=== PATIENT | female | born 1945 | race Caucasian/White ===

== ENCOUNTER 2016-06-22 07:01 | Inpatient (IN) | payer MEDICARE ==
[~2016-06-22] VITALS: Ht 154.9 cm; Wt 69.4 kg
[~2016-06-22 07:01] MED LIST: /BISA10SU PR; /GLIP10TAB PO; /GUAIMAX PO; /IPRAINH INH; /MOXI40TA PO; ADV500INH INH; ALBU17IN INH; ASPI1TAB PO; ASPI1TAB5 OR; AUGM875T27 PO; BISAC5TA OR; CAPTO25TA PO; CEFT500T PO; CEFU125S PO; CYCL50TA PO; DARB300VL IV; DIOV320T PO; DIOV40TA PO; DOCU10ELUD OR; DULC100C OR; FLEXERIL PO; GLIP10TA6 PO; GLIP5TAB2 PO; GLUC10TA3 OR; GLUC500T PO; GLYB5TA PO; INSULADS SC; INSULANT SC; LANTUS INSULIN SC; LEVO137T PO; LEVO137T14 PO; LEVO500T PO; LIPI20TA OR; LOPR1TAB6 PO; METF1000 PO; MOM30SS OR; NEUR250S PO; PHOS667C PO; PRED10TA PO; PRED10TA2 PO; PROAAER INH; SENN8.6T76 PO; SYMB80INH INH; SYNT25TA PO; TUMS500C OR; VANCOMYCIN IV; VENTAER INH; VESI5TAB PO; VIBR100C PO; ZOFR20TA PO
[2016-06-22 07:27] LABS: ABG BASE EXCESS -3.2 (-2.0-2.0); ABG DEVICE NASAL CANN; ABG HCO3 22.6 MEQ/L (22.0-26.0); ABG PARTIAL PRESSURE CO2 43.5 mmHg (35.0-45.0); ABG PARTIAL PRESSURE O2 81.5 mmHg (75.0-100.0); ABG STANDARD HCO3 21.7 MEQ/L (22.0-26.0); ABG TOTAL CO2 23.9 MEQ/L (23.0-31.0); ABG pH (ARTERIAL) 7.333 UNITS (7.350-7.450)
[2016-06-22 07:41] LABS: BASO % 0.5 % (0.0-1.0); EOS % 0.3 % (0.0-3.0); LARGE UNSTAINED CELL # 0.1 K/mm3 (0.0-0.4); LYMPH # 0.3 K/mm3 (1.5-4.5); MEAN CORPUSCULAR HEMOGLOBIN 30.8 pg (27.0-33.0); MEAN CORPUSCULAR HGB CONC 31.6 g/dl (32.0-36.5); MEAN CORPUSCULAR VOLUME 97.4 fl (80.0-96.0); MONO # 0.3 K/mm3 (0.0-0.8); MONO % 3.1 % (0.0-5.0); NEUTROPHILS # 9.9 K/mm3 (1.8-7.7); PLATELET COUNT, AUTOMATED 293 k/mm3 (150-450); RED CELL DISTRIBUTION WIDTH 18.4 % (11.5-14.5); WHITE BLOOD COUNT 10.8 K/mm3 (4.0-10.0)
--- NOTE | 2016-06-22 07:49 | REP ---
Clinical: Shortness of breath. Comparison: 06/06/2015. Findings: [place]-A-[place]w with tip in the SVC. Mild cardiomegaly cannot be excluded. Bilateral infiltrates/opacities are suspected (right greater than left). Effusion cannot be excluded. No pneumothorax. Skeletal structures intact. Impression: Bilateral infiltrates (right greater than left). Signed by Anurag Zhang MD 06/22/2016 07:39 A
[2016-06-22 08:00] LABS: ANION GAP 12 MEQ/L (8-16); BLOOD UREA NITROGEN 61 MG/DL (7-18); CALCIUM LEVEL 6.1 MG/DL (8.8-10.2); CARBON DIOXIDE LEVEL 27 MEQ/L (21-32); CHLORIDE LEVEL 97 MEQ/L (98-107); CREATININE FOR GFR 9.66 MG/DL (0.55-1.02); GLOMERULAR FILTRATION RATE 4.2 (>39); GLUCOSE, FASTING 397 MG/DL (83-110); SODIUM LEVEL 136 MEQ/L (136-145)
[2016-06-22 08:15] LABS: POTASSIUM SERUM 7.7 MEQ/L (3.5-5.1)
[2016-06-22] MEDS ORDERED: SOD POLYSTYRENE SULFONATE SUSP 15 GM/60 ML UD As Ordered ONE (08:31)
[2016-06-22] MEDS ORDERED: DEXTROSE 50% 50 ML SYRINGE As Ordered ONE (08:31)
[2016-06-22] MEDS ORDERED: HumuLIN R (REGULAR) INSULIN (NovoLIN R) **100U/ML** PER UNIT As Ordered ONE (08:34)
[2016-06-22] MEDS ORDERED: CALCIUM GLUCONATE 1,000MG/10ML VIAL (100MG/ML) (J0610) As Ordered ONE (08:37)
[2016-06-22] MEDS ORDERED: ALBUTEROL SULFATE 2.5 MG/0.5 ML INH NEB SOLN As Ordered ONE (08:46)
[2016-06-22] MEDS: LEVEMIR (INSULIN DETEMIR) 1 UNITS/0.01ML SC SCH (09:00)
[2016-06-22] MEDS ORDERED: METO100T PO (09:06)
[2016-06-22] MEDS ORDERED: LOSA100T36 PO (09:06)
[2016-06-22] MEDS ORDERED: AZAT5TAB PO (09:06)
[2016-06-22] MEDS ORDERED: DRIS50002 PO (09:06)
[2016-06-22] MEDS ORDERED: SODI15SS PO (09:06)
[2016-06-22] MEDS ORDERED: RENV2TAB PO (09:08)
[2016-06-22] MEDS ORDERED: NORC5TAB PO (09:08)
[2016-06-22] MEDS ORDERED: ONDANSETRON 4MG/2ML VIAL (J2405) IV PRN (10:00)
[2016-06-22] MEDS ORDERED: ACETAMINOPHEN TAB 650MG DOSE (2X325MG) PO PRN (10:00)
[2016-06-22] MEDS ORDERED: VANCOMYCIN HCL 1,000 MG, VIAL MATE ADAPTER 1 EACH in D5W 250 ML IV SCH (10:00)
[2016-06-22] MEDS ORDERED: LIDOCAINE 1% SDV 5 ML VIAL SQ ONE (10:45)
[2016-06-22] MEDS ORDERED: HEPARIN 1,000 UNITS/ML 10ML VIAL (FOR RADIOLOGY& DIALYSIS ONLY) IV ONE (10:45)
--- NOTE | 2016-06-22 13:02 | ECGEPIP ---
Stationary ECG Study [facility] - ED Test Date: 2016-06-22 Pat Name: JEAN MARIE BUSTAMANTE Department: Room: - Gender: F Counselor Aid: ct : 1945 Requested By: ROSALIO Muniz Order Number: [id number] Reading MD: Yvrose Ferro Measurements Intervals [place] Rate: 116 P: 11 MA: 165 QRS: 33 QRSD: 101 T: 40 QT: 260 QTc: 361 Interpretive Statements SINUS TACHYCARDIA WITH FREQUENT VENTRICULAR PREMATURE COMPLEXES NONSPECIFIC ST & T-WAVE ABNORMALITY ABNORMAL RHYTHM ECG PROMINENT T WAVES REQUIRE CLINICAL CORRELATION Electronically Signed On 06-22-2016 13:01:47 EST by Yvrose Ferro
--- NOTE | 2016-06-22 14:40 | EDDOCDS ---
Physician Documentation [facility] Name: Yara Chowdary Age: 70 yrs Sex: Female : 1945 Arrival Date: 06/22/2016 Time: 07:01 Bed 3 Private MD: Disposition: 06/22/16 09:03 Hospitalization ordered by Chris Esposito for Inpatient Admission. Preliminary diagnosis are Shortness of breath, Hyperkalemia, Chronic kidney disease (CKD). - Bed requested for PCU. - Status is Inpatient Admission. hs1 - Condition is Stable. - Problem is chronic. - Symptoms have worsened. Historical: - Allergies: no known allergies; - Home Meds: 1. Kionex 15 gram/60 mL oral susp once daily 2. famciclovir 250 mg Oral tab three times a week 3. Vitamin D2 50,000 unit oral cap once wkly 4. cyclobenzaprine 5 mg Oral tab 3 times per day 5. benzonatate 100 mg oral cap every 12 hours as need for cough 6. azathioprine 50 mg Oral tab once daily 7. metformin 1,000 mg Oral tab 2 times per day 8. metoprolol tartrate 100 mg Oral tab 2 times per day 9. Compazine 10 mg Oral cpER four times a day 10. losartan-potassium 100 mg daily 11. hydrocodone-acetaminophen 5-325 mg Oral tab every 12 hours as needed 12. levothyroxine 137 mcg Oral tab once daily 13. prednisone 20 mg Oral tab 3 tabs once daily 14. Renvela 800 mg oral tab 4 tabs 3 times per day - PMHx: Hypertension; Diabetes - NIDDM: controlled; Hypothyroidism; Renal Failure with Dialysis; CVA; - PSHx: Hysterectomy; D & C; - Social history: Smoking status: Patient states was never smoker of tobacco. No barriers to communication noted, The patient speaks fluent Greenlandic, Speaks appropriately for age. - Family history: Not pertinent. - : The pt / caregiver states he / she is not on anticoagulants. Home medication list is obtained from pill bottles. - Exposure Risk Screening:: None identified. Vital Signs: 06/22 07:04 BP 190 / 84 (auto/); ead 07:08 BP 194 / 84; Pulse 140; Resp 24; Temp 97.5(TE); Pulse Ox 97% ; Weight 69.85 kg / 153.99 ct3 lbs (M); 07:08 Pulse 139 MON; Pulse Ox 98% ; ead 07:15 BP 180 / 70 (auto/); ead 07:15 Pulse 136 MON; Pulse Ox 95% ; ead 07:38 BP 192 / 79 (auto/); ead 07:38 Pulse 117 MON; Pulse Ox 97% ; ead 07:42 Temp 97.0(R); ead 08:00 BP 180 / 84 (auto/); ead 08:00 Pulse 116 MON; Pulse Ox 97% ; ead 08:15 BP 185 / 77 (auto/); ead 08:15 Pulse 110 MON; Pulse Ox 99% on CPAP; ead 08:30 Pulse 104 MON; Pulse Ox 99% ; srm 08:30 BP 177 / 77 (auto/); srm 08:45 Pulse 105 MON; Pulse Ox 84% ; srm 08:45 BP 185 / 79 (auto/); srm 09:00 BP 192 / 80 (auto/); srm 09:00 Pulse 110 MON; Resp 24 S; Pulse Ox 89% ; srm 09:15 Pulse 122 MON; Pulse Ox 100% ; srm 09:15 BP 235 / 99 (auto/); srm 09:29 Pulse 68 MON; Pulse Ox 97% ; srm 09:30 BP 200 / 84 (auto/); srm 09:35 BP 200 / 84; Pulse 71 MON; Resp 22 S; Pulse Ox 97% on 2 lpm NC; srm 14:11 BP 206 / 91; Pulse 87; Resp 18; Temp 97.7(TE); Pulse Ox 99% on 2 lpm NC; Pain 0/10; srm 14:37 BP 209 / 92; Pulse 87; Resp 18; Pulse Ox 99% ; Pain 0/10; srm MDM: 07:08 Call Respiratory ordered. fg 07:08 Combustion Analyst/Pulse Ox/q 15 min VS ordered. fg 07:08 IV Saline Lock ordered. fg 07:08 Oxygen at 4L/Min NC or Home dosage ordered. fg 07:08 Rhythm Strip to chart ordered. fg 07:09 Chest, 1 View Ordered. EDMS 07:09 -Blood Culture Ordered. EDMS 07:09 B-Type Natiuretic Peptide Ordered. EDMS 07:09 Basic Metabolic Profile Ordered. EDMS 07:09 CBC with Diff Ordered. EDMS 07:09 Troponin Ordered. EDMS 07:09 ECG WITH READING ER PHYS+CARDIAG ordered. EDMS 07:13 Rectal Temp ordered. fg 07:15 -Arterial Blood Gas Ordered. EDMS 07:16 Call Respiratory complete. deg 07:17 BLOOD CULTURES Ordered. EDMS 07:21 Nitrostat 0.4 mg Sublingual once ordered. fg 08:00 BED REQUEST+ADM ordered. EDMS 08:25 Insulin Regular Human 10 units IVP once ordered. fg 08:25 Albuterol 2.5 mg Nebulizer once ordered. fg 08:25 Polystyrene Suspension 15 grams PO once ordered. fg 08:26 D50W 50 ml IVP once; (1 amp) ordered. fg 08:34 Calcium Gluconate 1 grams IVPB once over 1 hrs; add to 100mL of NS ordered. fg 09:02 Financial registration complete. lg 09:09 CT Chest without contrast Ordered. EDMS 09:57 Admission / Observation Status ordered. EDMS 09:58 NPO DIET ordered. EDMS 09:58 CARDIAC INJURY PROFILE Ordered. EDMS 09:58 CARDIAC INJURY PROFILE Ordered. EDMS 09:58 TROPONIN Ordered. EDMS 09:58 TROPONIN Ordered. EDMS 09:58 LEGIONELLA ANTIGEN URINE Ordered. EDMS 09:58 URINE STREP PNEUMONIAE ANTIGEN Ordered. EDMS 09:59 RESPIRATORY PANEL Ordered. EDMS 09:59 SPUTUM CULTURE AND GRAM STAIN Ordered. EDMS 09:59 GASTROINTESTINAL (GI) PANEL Ordered. EDMS 10:05 [facility] Payment Agreement was scanned into [employer] and attached to record. lg 10:51 Chest, 2 view PA, Lat Ordered. EDMS 12:38 BASIC METABOLIC PROFILE Ordered. EDMS 12:38 MAGNESIUM LEVEL Ordered. EDMS Administered Medications: 07:42 Drug: Nitrostat 0.4 mg [Nitrostat 0.4 mg sublingual tablet (1 tabs)] Route: Sublingual; ead 08:47 Drug: Calcium Gluconate 1 grams [calcium gluconate 100 mg/mL (10 %) intravenous ead solution] {Co-Signature: srm (Eli Aguirre RN).} Route: IVPB; Infused Over: 1 hrs; Site: right antecubital; 08:51 Drug: Albuterol 2.5 mg [albuterol sulfate 2.5 mg/0.5 mL solution for nebulization (0.5 cs15 mL)] Route: Nebulizer; 09:00 Drug: Polystyrene 15 grams [sodium polystyrene sulfonate 15 gram/60 mL oral suspension srm (1200 drps)] Route: PO; 09:14 Drug: Insulin Regular Human 10 units [insulin regular human 100 unit/mL injection srm solution (0.1 mL)] {Co-Signature: jonathon (Sharmin Hamilton RN).} Route: IVP; Site: right antecubital; 09:14 Drug: D50W 50 ml [dextrose 50 % in water (D50W) intravenous syringe (50 mL)] Route: srm IVP; Site: right antecubital; Signatures: Dispatcher [employer] EDMS Brissa Elizondo, Product Safety Professional Unit deg Valentin Johnson, Reg Reg lg Ashley De Dios RN RN hs1 Sharmin HamiltonRN Jill Brady MD MD fg Andrews, Steven, RN RN sa Michelson, Staci RN srm David Finley RT [id number] Sharmin dennis The chart was reviewed and I authenticate all verbal orders and agree with the evaluation and treatment provided.Corrections: (The following items were deleted from the chart) 09:59 09:59 GASTROINTESTINAL (GI) PANEL ordered. EDMS EDMS 09:59 09:59 GASTROINTESTINAL (GI) PANEL ordered. EDMS EDMS Attachments: 10:05 [facility] Payment Agreement lg MTDD
--- NOTE | 2016-06-22 14:40 | EDDOCDS ---
Nurse's Notes [facility] Name: Yara Bustamante Age: 70 yrs Sex: Female : 1945 Arrival Date: 06/22/2016 Time: 07:01 Bed 3 Private MD: Diagnosis: Shortness of breath;Hyperkalemia;Chronic kidney disease (CKD) Presentation: 06/22 07:04 Presenting complaint: EMS states: "Sudden onset of severe respiratory distress this ead morning." Pt was supposed to go to dialysis this morning. Report respiratory rate of 46 and 02 sat of 78 on arrival to pt's residence. Pt received BVM then to Cpap, peep at 10, 97% on arrival. 18 to gauge to right AC. Denies hx of COPD. Pt is Diabetic, no blood glucose at this time. Adult Sepsis Screening: The patient does not have new or worsening altered mentation. Patient has a respiratory rate of greater than or equal to 22 (1 point). Systolic blood pressure is greater than 100. Patient has a qSOFA score of 1- Negative Sepsis Screen. Suicide/Homicide risk assessment- Unable to assess, the patient is critically ill. 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 Transition of care: patient was not received from another setting of care. 07:04 Acuity: CLARY Level 2 ead 07:04 Method Of Arrival: Ambulance ead Triage Assessment: 07:18 General: Appears distressed, ill, Behavior is cooperative. Pain: Denies pain. The ead patient is triaged at the bedside. See Assessment in Nurses Notes section of ED record. Neurological: Level of Consciousness is awake, alert. Cardiovascular: Heart tones S1 S2 present Rhythm is regular Chest pain is denied. Respiratory: Onset: The symptoms/episode began/occurred this morning, Airway is patent Respiratory effort is labored, Respiratory pattern is tachypnea Reports shortness of breath. Respiratory: Breath sounds with crackles bilaterally. GI: Denies nausea, vomiting, pain. Derm: Skin is dry, Skin is pale, Skin temperature is warm. Historical: - Allergies: no known allergies; - Home Meds: 1. Kionex 15 gram/60 mL oral susp once daily 2. famciclovir 250 mg Oral tab three times a week 3. Vitamin D2 50,000 unit oral cap once wkly 4. cyclobenzaprine 5 mg Oral tab 3 times per day 5. benzonatate 100 mg oral cap every 12 hours as need for cough 6. azathioprine 50 mg Oral tab once daily 7. metformin 1,000 mg Oral tab 2 times per day 8. metoprolol tartrate 100 mg Oral tab 2 times per day 9. Compazine 10 mg Oral cpER four times a day 10. losartan-potassium 100 mg daily 11. hydrocodone-acetaminophen 5-325 mg Oral tab every 12 hours as needed 12. levothyroxine 137 mcg Oral tab once daily 13. prednisone 20 mg Oral tab 3 tabs once daily 14. Renvela 800 mg oral tab 4 tabs 3 times per day - PMHx: Hypertension; Diabetes - NIDDM: controlled; Hypothyroidism; Renal Failure with Dialysis; CVA; - PSHx: Hysterectomy; D & C; - Social history: Smoking status: Patient states was never smoker of tobacco. No barriers to communication noted, The patient speaks fluent Danish, Speaks appropriately for age. - Family history: Not pertinent. - : The pt / caregiver states he / she is not on anticoagulants. Home medication list is obtained from pill bottles. - Exposure Risk Screening:: None identified. Screenin:35 Screening information is obtained from the patient, prior medical records. Fall risk: ead No risks identified. Advance Directives: There is an active DNR order but there is no copy available at this time. Advance directive information has been placed on a prior [facility] medical record, but the patient/ family does not know when. 14:14 Assistance ADL's: requires no assistance with activities of daily living. Abuse/DV srm Screen: The patient / caregiver reports he/she is: not in a situation that causes fear, pain or injury. Nutritional screening: No deficits noted. home support is adequate. Assessment: 07:35 General: See triage assessment. ead 09:01 General: Appears in no apparent distress, Behavior is appropriate for age, cooperative. srm Neurological: No deficits noted. Level of Consciousness is awake, alert, Oriented to person, place, time. Respiratory: Airway is patent Respiratory effort is even, unlabored, Breath sounds are clear bilaterally. bipap in place. GI: Abdomen is non- distended Bowel sounds present X 4 quads. Abd is soft and non tender X 4 quads. Derm: Skin is intact, Skin is dry, Skin is pale, pink. 09:27 General: per dr feldman- pt to dialysis now. . srm 09:39 General: pt transported top dialysis on 2LNC- POX 96% on arrival to dept. report given srm to joselito langley. . 13:55 General: pt returned from dialysis. pt appears and states she feels better than going srm to dialysis. per Lita langley in dialysis- they removed 2.5 kilo. resp easy at this time./pox 98% on 2 LNC. pt sent to CT /rad. 14:11 General: increased staining to left dialysis graft to arm. called and spoke with joselito langley- pressure dressing applied. . Cardiovascular: Rhythm is sinus rhythm. Respiratory: Airway is patent Respiratory effort is even, unlabored, Breath sounds are clear bilaterally. Respiratory: Airway. Derm: Skin is intact, Skin is dry, Skin is pink. 14:23 General: no further bleeding noted from dialysis graft when pressure dressing released. srm reapplied stacy looser than with the pressure dressing. will reeval. 14:37 General: Appears in no apparent distress, Behavior is appropriate for age, cooperative. srm Pain: Denies pain. EENT: No deficits noted. Cardiovascular: Rhythm is sinus rhythm. Respiratory: No deficits noted. Vital Signs: 07:04 BP 190 / 84 (auto/); ead 07:08 BP 194 / 84; Pulse 140; Resp 24; Temp 97.5(TE); Pulse Ox 97% ; Weight 69.85 kg (M); ct3 07:08 Pulse 139 MON; Pulse Ox 98% ; ead 07:15 BP 180 / 70 (auto/); ead 07:15 Pulse 136 MON; Pulse Ox 95% ; ead 07:38 BP 192 / 79 (auto/); ead 07:38 Pulse 117 MON; Pulse Ox 97% ; ead 07:42 Temp 97.0(R); ead 08:00 BP 180 / 84 (auto/); ead 08:00 Pulse 116 MON; Pulse Ox 97% ; ead 08:15 BP 185 / 77 (auto/); ead 08:15 Pulse 110 MON; Pulse Ox 99% on CPAP; ead 08:30 Pulse 104 MON; Pulse Ox 99% ; srm 08:30 BP 177 / 77 (auto/); srm 08:45 Pulse 105 MON; Pulse Ox 84% ; srm 08:45 BP 185 / 79 (auto/); srm 09:00 BP 192 / 80 (auto/); srm 09:00 Pulse 110 MON; Resp 24 S; Pulse Ox 89% ; srm 09:15 Pulse 122 MON; Pulse Ox 100% ; srm 09:15 BP 235 / 99 (auto/); srm 09:29 Pulse 68 MON; Pulse Ox 97% ; srm 09:30 BP 200 / 84 (auto/); srm 09:35 BP 200 / 84; Pulse 71 MON; Resp 22 S; Pulse Ox 97% on 2 lpm NC; srm 14:11 BP 206 / 91; Pulse 87; Resp 18; Temp 97.7(TE); Pulse Ox 99% on 2 lpm NC; Pain 0/10; srm 14:37 BP 209 / 92; Pulse 87; Resp 18; Pulse Ox 99% ; Pain 0/10; srm Vitals: 07:08 Log In Time N/A - ambulance arrival. ct3 ED Course: 07:03 Patient visited by Brissa Elizondo, Asbestos Pipe Supervisor. deg 07:03 Sharmin Hamilton,RN is Primary Nurse. deg 07:03 Patient moved to Waiting deg 07:03 Patient moved to 3 deg 07:07 Jill Dunn MD is Attending Physician. fg 07:07 Patient visited by Jill Dunn MD. fg 07:07 Triage Initiated ead 07:08 Patient has correct armband on for positive identification. Bed in low position. Call ct3 light in reach. Side rails up X2. drafting teacher on. Pulse ox on. NIBP on. 07:09 Patient visited by Selene Richardson PCA. ct3 07:17 EKG done. (by ED staff). Reviewed by Jill Dunn MD. ct3 07:18 Patient visited by Selene Richardson PCA. ct3 07:24 -Arterial Blood Gas Sent. cs15 07:34 -Blood Culture Sent. ead 07:34 B-Type Natiuretic Peptide Sent. ead 07:34 Basic Metabolic Profile Sent. ead 07:34 Troponin Sent. ead 07:34 CBC with Diff Sent. ead 07:35 The patient / caregiver is instructed regarding the plan of care and ED course. ead 07:35 Maintain field IV. Dressing intact. Good blood return noted. Site clean & dry. Gauge & ead site: 18 gauge to right AC. . 07:37 Patient visited by Sharmin Hamilton RN. ead 07:51 BLOOD CULTURES Sent. ct3 07:58 Chest, 1 View Returned. EDMS 08:30 Patient visited by Sharmin Hamilton RN. ead 08:50 Report given to Eli Aguirre RN. ead 09:02 Chris Esposito is Hospitalizing Provider. fg 09:03 Patient visited by Eli Aguirre RN. srm 09:40 Patient visited by Eli Aguirre RN. srm 10:05 [facility] Payment Agreement was scanned into [email or web address] and attached to record. lg 13:09 EKG-ADULT Returned. EDMS 13:58 Patient visited by Eli Aguirre RN. srm 14:14 No procedures done that require assistance. srm 14:16 Patient visited by Eli Aguirre RN. srm 14:25 Patient visited by Eli Aguirre RN. srm Administered Medications: 07:42 Drug: Nitrostat 0.4 mg [Nitrostat 0.4 mg sublingual tablet (1 tabs)] Route: Sublingual; ead 08:47 Drug: Calcium Gluconate 1 grams [calcium gluconate 100 mg/mL (10 %) intravenous ead solution] {Co-Signature: srm (Eli Aguirre RN).} Route: IVPB; Infused Over: 1 hrs; Site: right antecubital; 08:51 Drug: Albuterol 2.5 mg [albuterol sulfate 2.5 mg/0.5 mL solution for nebulization (0.5 cs15 mL)] Route: Nebulizer; 09:00 Drug: Polystyrene 15 grams [sodium polystyrene sulfonate 15 gram/60 mL oral suspension srm (1200 drps)] Route: PO; 09:14 Drug: Insulin Regular Human 10 units [insulin regular human 100 unit/mL injection srm solution (0.1 mL)] {Co-Signature: ead (Sharmin Hamilton RN).} Route: IVP; Site: right antecubital; 09:14 Drug: D50W 50 ml [dextrose 50 % in water (D50W) intravenous syringe (50 mL)] Route: srm IVP; Site: right antecubital; RT: 07:24 ABG's drawn from right radial artery allens test done and positive pressure held for 5 cs15 minutes no bleeding noted pressure bandage applied specimen sent pt. tolerated well. C-PAP of 10 on 60% Fio2. 07:28 Respiratory: Breath sounds are coarse bilaterally. Breath sounds with crackles in right cs15 posterior middle lobe and right posterior lower lobe. 08:52 Initial Med Neb Given as ordered. Respiratory: Respiratory effort is Respiratory cs15 pattern is regular tachypnea Breath sounds with crackles bilaterally. Order Results: Lab Order: B-Type Natiuretic Peptide; SPEC'M 06/22/16 07:32 Test: BRAIN NATRIURETIC PEPTIDE; Value: 1670; Range: <100; Abnormal: Above high normal; Units: PG/ML; Status: F Lab Order: Basic Metabolic Profile; SPEC'M 06/22/16 07:32 Test: GLUCOSE, FASTING; Value: 397; Range: 83-110; Abnormal: Above high normal; Units: MG/DL; Status: F Test: BLOOD UREA NITROGEN; Value: 61; Range: 7-18; Abnormal: Above high normal; Units: MG/DL; Status: F Test: CREATININE FOR GFR; Value: 9.66; Range: 0.55-1.02; Abnormal: Above high normal; Units: MG/DL; Status: F Test: GLOMERULAR FILTRATION RATE; Value: 4.2; Range: >39; Abnormal: Below low normal; Status: F Test: SODIUM LEVEL; Value: 136; Range: 136-145; Units: MEQ/L; Status: F Test: POTASSIUM SERUM; Value: 7.7; Range: 3.5-5.1; Abnormal: Above upper panic limits; Units: MEQ/L; Status: F Test: CHLORIDE LEVEL; Value: 97; Range: 98-107; Abnormal: Below low normal; Units: MEQ/L; Status: F Test: CARBON DIOXIDE LEVEL; Value: 27; Range: 21-32; Units: MEQ/L; Status: F Test: ANION GAP; Value: 12; Range: 8-16; Units: MEQ/L; Status: F Test: CALCIUM LEVEL; Value: 6.1; Range: 8.8-10.2; Abnormal: Below low normal; Units: MG/DL; Status: F Test Note: ; Units are mL/min/1.73 m2 Chronic Kidney Disease Staging per NKF: Stage I & II GFR >=60 Normal to Mildly Decreased Stage III GFR 30-59 Moderately Decreased Stage IV GFR 15-29 Severely Decreased Stage V GFR <15 Very Little GFR Left ESRD GFR <15 on CREDIT RELATIONSHIP MANAGER Lab Order: CBC with Diff; SPEC'M 06/22/16 07:32 Test: WHITE BLOOD COUNT; Value: 10.8; Range: 4.0-10.0; Abnormal: Above high normal; Units: K/mm3; Status: F Test: RED BLOOD COUNT; Value: 3.81; Range: 4.00-5.40; Abnormal: Below low normal; Units: M/mm3; Status: F Test: HEMOGLOBIN; Value: 11.7; Range: 12.0-16.0; Abnormal: Below low normal; Units: g/dl; Status: F Test: HEMATOCRIT; Value: 37.1; Range: 36.0-47.0; Units: %; Status: F Test: MEAN CORPUSCULAR VOLUME; Value: 97.4; Range: 80.0-96.0; Abnormal: Above high normal; Units: fl; Status: F Test: MEAN CORPUSCULAR HEMOGLOBIN; Value: 30.8; Range: 27.0-33.0; Units: pg; Status: F Test: MEAN CORPUSCULAR HGB CONC; Value: 31.6; Range: 32.0-36.5; Abnormal: Below low normal; Units: g/dl; Status: F Test: RED CELL DISTRIBUTION WIDTH; Value: 18.4; Range: 11.5-14.5; Abnormal: Above high normal; Units: %; Status: F Test: PLATELET COUNT, AUTOMATED; Value: 293; Range: 150-450; Units: k/mm3; Status: F Test: NEUTROPHILS %; Value: 92.0; Range: 36.0-66.0; Abnormal: Above high normal; Units: %; Status: F Test: LYMPH %; Value: 3.0; Range: 24.0-44.0; Abnormal: Below low normal; Units: %; Status: F Test: MONO %; Value: 3.1; Range: 0.0-5.0; Units: %; Status: F Test: EOS %; Value: 0.3; Range: 0.0-3.0; Units: %; Status: F Test: BASO %; Value: 0.5; Range: 0.0-1.0; Units: %; Status: F Test: LARGE UNSTAINED CELL %; Value: 1.0; Range: 0.0-4.0; Units: %; Status: F Test: NEUTROPHILS #; Value: 9.9; Range: 1.8-7.7; Abnormal: Above high normal; Units: K/mm3; Status: F Test: LYMPH #; Value: 0.3; Range: 1.5-4.5; Abnormal: Below low normal; Units: K/mm3; Status: F Test: MONO #; Value: 0.3; Range: 0.0-0.8; Units: K/mm3; Status: F Test: EOS #; Value: 0.0; Range: 0.0-0.50; Units: K/mm3; Status: F Test: BASO #; Value: 0.0; Range: 0.0-0.2; Units: K/mm3; Status: F Test: LARGE UNSTAINED CELL #; Value: 0.1; Range: 0.0-0.4; Units: K/mm3; Status: F Lab Order: Troponin; SPEC'M 06/22/16 07:32 Test: TROPONIN I; Value: < 0.02; Range: < 0.10; Units: NG/ML; Status: F Test Note: ; Troponin I Reference Interval for [employer] LOCI: 99th Percentile= 0.00-0.045 ng/ml Risk Stratification: <= 0.10 ng/ml Decreased Risk for Adverse Clinical Events. 0.10-1.50 ng/ml Increased Risk for Adverse Clinical Events. Evaluation of additional criterion and/or repeat testing in 2-6 hours is suggested to rule out myocardial damage. >= 1.50 ng/ml Indicative of Myocardial Injury. Lab Order: -Arterial Blood Gas; SPEC'M 06/22/16 07:22 Test: ABG pH (ARTERIAL); Value: 7.333; Range: 7.350-7.450; Abnormal: Below low normal; Units: UNITS; Status: F Test: ABG PARTIAL PRESSURE CO2; Value: 43.5; Range: 35.0-45.0; Units: mmHg; Status: F Test: ABG PARTIAL PRESSURE O2; Value: 81.5; Range: 75.0-100.0; Units: mmHg; Status: F Test: ABG TOTAL CO2; Value: 23.9; Range: 23.0-31.0; Units: MEQ/L; Status: F Test: ABG HCO3; Value: 22.6; Range: 22.0-26.0; Units: MEQ/L; Status: F Test: ABG BASE EXCESS; Value: -3.2; Range: -2.0-2.0; Abnormal: Below low normal; Status: F Test: ABG STANDARD HCO3; Value: 21.7; Range: 22.0-26.0; Abnormal: Below low normal; Units: MEQ/L; Status: F Test: ABG O2 SATURATION; Value: 92.8; Range: 95.0-99.0; Abnormal: Below low normal; Units: %; Status: F Test: ABG DEVICE; Value: NASAL EMILY; Status: F Lab Order: CARDIAC INJURY PROFILE; SPEC'M 06/22/16 10:10 Test: CPK CREATINE PHOSPHOKINASE; Value: 51; Range: 26-192; Units: U/L; Status: F Test: CK-MB VALUE MASS; Value: 1.0; Range: 0.0-3.6; Units: NG/ML; Status: F Test: MB/CK RELATIVE INDEX; Value: 1.96; Range: < OR =4; Status: F Test Note: ; DIAGNOSIS CRITERIA MMB ng/ml Relative Index (RI) NON-AMI < or = 5 N/A [place] > 5 < or = 4 AMI > 5 > 4 Lab Order: TROPONIN; SPEC'M 06/22/16 10:10 Test: TROPONIN I; Value: < 0.02; Range: < 0.10; Units: NG/ML; Status: F Test Note: ; Troponin I Reference Interval for [employer] LOCI: 99th Percentile= 0.00-0.045 ng/ml Risk Stratification: <= 0.10 ng/ml Decreased Risk for Adverse Clinical Events. 0.10-1.50 ng/ml Increased Risk for Adverse Clinical Events. Evaluation of additional criterion and/or repeat testing in 2-6 hours is suggested to rule out myocardial damage. >= 1.50 ng/ml Indicative of Myocardial Injury. Radiology Order: Chest, 1 View Test: Chest, 1 View REASON FOR EXAMINATION: Shortness of Breath; Clinical: Shortness of breath.; ; Comparison: 06/06/2015.; ; Findings:; Yfbjyo-A-Jgiw with tip in the SVC.; Mild cardiomegaly cannot be excluded.; Bilateral infiltrates/opacities are suspected (right greater than left).; Effusion cannot be excluded. No pneumothorax. 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 fg 14:15 Condition: good Condition: stable Condition: improved. CT Study completed. Property srm :Personal belongings accompany Pt. 14:37 Discharge Assessment: Patient awake, alert and oriented x 3. No cognitive and/or srm functional deficits noted. Patient verbalized understanding of disposition instructions. patient administered narcotics - no. The following High Risk Discharge criteria are identified: None. Admitted to PCU accompanied by nurse, accompanied by tech, via stretcher, with oxygen, on monitor, with chart. 14:39 Patient left the ED. hs1 Signatures: Dispatcher [employer] EDBrissa Nichols, Asbestos Pipe Supervisor Unit deg Eli Aguirre RN RN Valentin Ortiz, Reg Reg lg Ashley De Dios RN RN hs1 Selene Richardson, CHAD CONVENTION SERVICES MANAGER ct3 Sharmin Hamilton RN RN Jill Lea MD MD fg David Finley,RT RT cs15 Sharmin Aguirre RN srm Corrections: (The following items were deleted from the chart) 09:41 09:35 Pulse 71bpm; MonitorResp 22bpm; Spontaneous; Pulse Ox 97%; srm srm MTDD
[2016-06-22 15:00] LABS: CALCIUM LEVEL 8.3 MG/DL (8.8-10.2); CREATININE FOR GFR 4.89 MG/DL (0.55-1.02); GLOMERULAR FILTRATION RATE 9.3 (>39); MAGNESIUM LEVEL 2.3 MG/DL (1.8-2.4)
--- NOTE | 2016-06-22 15:03 | HPEPDOC ---
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 Patient states she's been short of breath and complaining of a nonproductive cough for the past 3 weeks. Denies any fevers or chills. No sick contacts. Patient also states that she's had 12-13 bowel movements that started last night. No nausea/vomiting/abdominal pain. Patient was in severe as per distress was placed on BiPAP with significant relief. In the ED patient was also noted to be hyperkalemic for which she received insulin/glucose/Kayexalate and went for emergent hemodialysis. She did have peak T waves in EKG and received calcium gluconate in the ED. PAST MEDICAL HISTORY: As per HPI PAST SURGICAL HISTORY: Left AV fistula, hysterectomy, dilation curettage SOCIAL HISTORY: Denies tobacco, alcohol, illicit drug use. FAMILY HISTORY: Noncontributory ALLERGIES: Please see below. REVIEW OF SYSTEMS: HEENT: Denies sore throat/headache CARDIOVASCULAR: Denies chest pain/palpitations RESPIRATORY: + shortness of breath/cough GASTROINTESTINAL: denies nausea/vomiting GENITOURINARY: Denies dysuria/urinary urgency. MUSCULOSKELETAL: Denies myalgias/arthralgias NEUROLOGICAL: Denies any focal weakness Rest of ROS negative. HOME MEDICATIONS: Please see below. PHYSICAL EXAMINATION: Vitals: (see below) General: No acute distress, laying comfortably in bed. HEENT: Moist mucous membranes. Neck: No JVD or lymphadenopathy Cardiac: RRR Pulm: Diminished breath sounds are coarse crackles bilateral bases with the right greater than left. No wheezing or rhonchi Abd: NT/ND + BS Ext: No edema or cyanosis. Left AVF with bruit and distal pulses intact. LABORATORY DATA: See below. IMAGING: Chest x-ray on 06/22/16 bilateral infiltrates at the right greater than the left. ASSESSMENT/PLAN: Acute hypoxic respiratory failure- secondary to volume overload as well as underlying pneumonia. The patient did receive her emergent hemodialysis this morning. Did have significant relief with BiPAP. Patient was also placed on vancomycin and cefepime with cultures sent. Respiratory panel sent. We'll trend CRP and WBCs. Looking back at prior notes patient has had right lower lobe scar with dystrophic calcification on her CT chest from her Deepti's granulomatosis. End-stage renal disease on hemodialysis- She will resume her Wednesday/Wednesday/ Wednesday hemodialysis. Prednisone daily. Hyperkalemia- with peak T waves in EKG. Status post calcium gluconate, insulin/ glucose/Kayexalate. Patient also had emergent hemodialysis. Hypertension- continue home meds Hypothyroidism-continue Synthroid Diabetes- hold glipizide and continue Lantus. DVT prophylaxis- heparin subcutaneous Laboratory Data Labs 24H Laboratory Tests 2 06/22/16 07:22: Arterial Blood pH 7.333L, Arterial Blood Partial Pressure CO2 43.5, Arterial Blood Partial Pressure O2 81.5, Arterial Blood Total CO2 23.9, Arterial Blood HCO3 22.6, Arterial Blood Base Excess -3.2L, Arterial Blood Oxygen Saturation 92.8L, Blood Gas Bicarbonate Standard 21.7L, Oxygen Delivery Device NASAL EMILY 06/22/16 07:32: Anion Gap 12, B-Type Natriuretic Peptide 1670H, White Blood Count 10.8H, Red Blood Count 3.81L, Hemoglobin 11.7L, Hematocrit 37.1, Mean Corpuscular Volume 97.4H, Mean Corpuscular Hemoglobin 30.8, Mean Corpuscular Hemoglobin Concent 31.6L, Red Cell Distribution Width 18.4H, Platelet Count 293, Neutrophils (%) ( Auto) 92.0H, Lymphocytes (%) (Auto) 3.0L, Monocytes (%) (Auto) 3.1, Eosinophils (%) (Auto) 0.3, Basophils (%) (Auto) 0.5, Neutrophils # (Auto) 9.9H, Lymphocytes # (Auto) 0.3L, Monocytes # (Auto) 0.3, Eosinophils # (Auto) 0.0, Basophils # (Auto) 0.0, Blood Urea Nitrogen 61H, Creatinine 9.66H, Sodium Level 136, Potassium Level 7.7*H, Chloride Level 97L, Carbon Dioxide Level 27, Calcium Level 6.1L, Glomerular Filtration Rate 4.2L, Large Unclassified Cells # 0.1, Large Unclassified Cells % 1.0, Troponin I < 0.02 06/22/16 10:10: Troponin I < 0.02, Creatine Kinase MB 1.0, Creatine Kinase MB Relative Index 1.96, Total Creatine Kinase 51 06/22/16 14:31: CBC/BMP Laboratory Tests 06/22/16 07:32 Calcium Level 6.1 L, Red Blood Count 3.81 L, Mean Corpuscular Volume 97.4 H, Mean Corpuscular Hemoglobin 30.8, Mean Corpuscular Hemoglobin Concent 31.6 L, Red Cell Distribution Width 18.4 H, Neutrophils (%) (Auto) 92.0 H, Lymphocytes ( %) (Auto) 3.0 L, Monocytes (%) (Auto) 3.1, Eosinophils (%) (Auto) 0.3, Basophils (%) (Auto) 0.5, Neutrophils # (Auto) 9.9 H, Lymphocytes # (Auto) 0.3 L , Monocytes # (Auto) 0.3, Eosinophils # (Auto) 0.0, Basophils # (Auto) 0.0 Microbiology Microbiology 06/22/16 Blood Culture, Received Pending 06/22/16 Blood Culture, Received Pending Home Medications Scheduled Aspirin (Aspirin 81) 81 Mg Tab 81 MG PO DAILY Azathioprine (Azathioprine) 50 Mg Tab 50 MG PO DAILY Calcium Acetate (Phoslo) 667 Mg Cap 3 CAP PO WM Levothyroxine Sodium (Levoxyl) 137 Mcg Tab 137 MCG PO DAILY Losartan Potassium (Losartan Potassium) 100 Mg Tab 100 MG PO DAILY Metoprolol Tartrate (Metoprolol Tartrate) 100 Mg Tab 100 MG PO BID Sevelamer Carbonate (Renvela) 800 Mg Tab 3,200 MG PO WM Sodium Polystyrene Sulfonate (Sps) 15 Gm/60 Ml Susp 15 GM PO ASDIRECTED Vitamin D (Drisdol) 50,000 Unit Cap 50,000 UNIT PO QWEEK MONDAYS Scheduled PRN Acetaminophen/Hydrocodone ([place] 5-325 mg) 1 Tab Tab 1 TAB PO Q12H PRN PRN PAIN Allergies Coded Allergies: No Known Allergies (Unverified , 01/02/13) RONAL MOTTA MD Jun 22, 2016 15:03
[2016-06-22 15:11] LABS: POTASSIUM SERUM 4.1 MEQ/L (3.5-5.1)
[2016-06-22] MEDS ORDERED: SOD POLYSTYRENE SULFONATE SUSP 15 GM/60 ML UD PO SCH (15:15)
[2016-06-22] MEDS ORDERED: NORCO, ANEXSIA 5/325MG TABLET (HYDROcodone/ACETAMINOPHEN) PO PRN (15:15)
[2016-06-22 15:19] VITALS: BP 170/78
--- NOTE | 2016-06-22 15:30 | REP ---
CT study of the chest without IV contrast: History: Question bilateral infiltrates. Comparison chest x-ray is from this date. Comparison chest CT study February 13, 2016. CT findings: There is an Hltqef-F-Ldli catheter via the left internal jugular vein. Bilateral thyroid enlargement is seen, unchanged. Vascular calcification is noted in the aorta, great vessels, and coronary arteries. There are small bilateral pleural effusions, right a little more so than left. No pericardial effusion is seen. There are linear suture lines in the right lower lobe as before post thoracotomy. Discoid atelectasis is seen in the lower lobes bilaterally. There is some patchy parenchymal consolidation in the posterior segment of the right upper lobe. No other infiltrate is appreciated. Stable scattered normal sized mediastinal lymph nodes are seen. No adrenal lesion is observed. Atrophic kidneys are seen in the upper abdomen at the bottom of the imaging field of view. Stable low density areas are seen in the superior aspect of the liver, unchanged. No bony destructive lesion is appreciated. Impression: Small bilateral effusions, right greater than left. Bilateral lower lobe discoid atelectasis. Patchy area of infiltrate in the posterior segment of the right upper lobe may be early pneumonia. Signed by Everett Madsen MD 06/22/2016 03:35 P
--- NOTE | 2016-06-22 15:34 | REP ---
Chest x-ray: Two views. History: Shortness of breath and cough. Findings: The lungs are symmetrically aerated. A left internal jugular vein [id number] is seen with its tip in the expected location of the superior vena cava. There is blunting of the lateral pleural angles on both sides. No free pleural effusion is seen. Pulmonary parenchymal opacity on the right is improved from the film done at 07:31 a.m. on this date. There is some increased pleuroparenchymal density at the right base. There is a hazy opacity in the right upper lobe region above the minor fissure. Impression: Hazy opacity right upper lobe above the minor fissure. Right basilar plate-like atelectasis. Blunting of the lateral pleural angles. Signed by Everett Madsen MD 06/22/2016 03:35 P
[2016-06-22] MEDS ORDERED: CHECK TO SEE IF PATIENT IS RECEIVING DIALYSIS TODAY AND REFER TO THE VANCOMYCIN ORDER XX SCH (16:00)
[2016-06-22] MEDS ORDERED: GLUCOSE 4 GM CHEW TABLET PO PRN (17:15)
[2016-06-22] MEDS ORDERED: DEXTROSE 50% 50 ML SYRINGE IV PRN (17:15)
[2016-06-22] MEDS: ASPIRIN 81 MG ENTERIC TAB PO SCH (17:50)
[2016-06-22] MEDS: (RENVELA) SEVELAMER **CARBONate** 800 MG TAB PO SCH (17:51)
[2016-06-22] MEDS: amLODIPine 5 MG TAB PO SCH (17:51)
[2016-06-22] MEDS: PANTOPRAZOLE 40MG INJ (PROTONIX) (C9113) IV SCH (17:51)
[2016-06-22] MEDS ORDERED: CEFEPIME HCL 1 GM in D5W MINI-BAG PLUS 50 ML IV SCH (18:00)
[2016-06-22] MEDS: azaTHIOprine 50 MG TAB (J7500) PO SCH (18:13)
[2016-06-22] MEDS: LEVOTHYROXINE 0.137 MG TAB (137MCG) PO SCH (18:13)
[2016-06-22] MEDS: HumaLOG INSULIN (NovoLOG) PER UNIT SC SCH (18:55)
[2016-06-22 20:00] VITALS: BP 150/58
--- NOTE | 2016-06-22 20:02 | ECGEPIP ---
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
[2016-06-22] MEDS ORDERED: HumaLOG INSULIN (NovoLOG) PER UNIT SC SCH (21:00)
[2016-06-22] MEDS: METOPROLOL TARTRATE 100 MG TAB PO SCH (21:57)
[2016-06-22 22:06] VITALS: BP 162/72
--- NOTE | 2016-06-22 23:21 | CR ---
DATE OF CONSULTATION: 06/22/2016 REQUESTING PHYSICIAN: William Motta MD CONSULTING PHYSICIAN: Gregg Pineda MD REASON FOR CONSULTATION: Management of end-stage renal disease, fluid overload and hyperkalemia. HISTORY OF PRESENT ILLNESS: Yara Chowdary is a 70-year-old female with past medical history of end-stage renal disease on hemodialysis every Wednesday, Wednesday, Wednesday. Last hemodialysis was done according to schedule on Wednesday. 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 She is currently maintained on Azathioprine, multiple other comorbidities as mentioned below. The patient presented to the emergency room over night with progressive shortness of breath for the last three days with cough and some whitish phlegm. She denied any fever, chills or rigors. She does report that she drank a little bit of extra fluid over the weekend. The patient was found to have blood pressures in 200s in the emergency room and labs done during triage also showed that she had a potassium of 7.7, so nephrology service consult was requested for emergent hemodialysis of the patient. Today is her regular day of dialysis. The patient was admitted to the PCU. Emergency hemodialysis session was arranged for the patient and patient was dialyzed first shift in the morning today. PAST MEDICAL HISTORY: She has past medical history of end-stage renal disease on hemodialysis Wednesday, Wednesday, Wednesday. History of Garrison's granulomatosis with lung involvement as well, hypertension, diabetes mellitus type 2, hyperthyroidism, history of cerebrovascular accident (CVA) with no residual weakness in the past. PAST SURGICAL HISTORY: Left arm arteriovenous (AV) fistula. Status post hysterectomy. Status post dilation and curettage (D and C). ALLERGIES: The patient has no known medical allergies. HOME MEDICATIONS: The patient takes: - [place] as needed for pain - aspirin 81 mg daily - azathioprine 50 mg by mouth daily - PhosLo 3 capsules by mouth with meal - levothyroxine 137 mcg by mouth daily - Losartan 100 mg by mouth daily - metoprolol 100 mg by mouth twice a day - Renvela 3.2 grams by mouth with meals - vitamin D 50,000 units by mouth weekly CURRENT INPATIENT MEDICATIONS: The patient's inpatient medications were all reviewed by me. She is on: - Cefepime 1 gram IV every 24 hourly - vancomycin 1 gram IV every hemodialysis - amlodipine 5 mg by mouth daily - insulin, Levemir 10 units subcutaneous every morning - Lopressor 100 mg by mouth twice a day The rest of the medications are the same as home medications. FAMILY HISTORY: There is no significant family history of end-stage renal disease requiring hemodialysis. SOCIAL HISTORY: The patient denies any smoking, drug abuse or alcohol abuse. REVIEW OF SYSTEMS: CONSTITUTIONAL: The patient reports shortness of breath and cough. EYES: The patient denies any recent blurry vision or double vision. HEENT: She denies any ear discharge, dysphagia or dynophagia. CARDIOVASCULAR: She denies any chest pain or palpitations and she denies any lower extremity edema. RESPIRATORY: The patient reports progressive shortness of breath and cough with some phlegm. GASTROINTESTINAL (GI): The patient denies any nausea or vomiting, pain in abdomen, constipation. GENITOURINARY (): She has a history of end-stage renal disease requiring hemodialysis and she makes very little urine. MUSCULOSKELETAL: She denies any myalgias or arthralgias. CENTRAL NERVOUS SYSTEM: The patient reports history of CVA, but there is no focal deficit. PSYCHIATRIC: She denies any history of depression or anxiety. SKIN: She denies any rashes or ulcers. ENDOCRINE: She reports history of diabetes. HEMATOLOGICAL/ONCOLOGICAL: She reports history of anemia secondary to end-stage renal disease. All other review of system was found to be negative. PHYSICAL EXAMINATION: GENERAL: The patient is awake, alert and oriented times three. Laying in bed. Getting hemodialysis done at this time. VITAL SIGNS: Blood pressure was 191/86, pulse is 82, respiratory rate of 16, saturating 98% on nasal cannula. HEAD/NECK: Extraocular muscles intact. Pupils equally round and reactive to light. Neck is supple. Mucous membranes are moist. There is slightly elevated jugular venous distention (JVD). CARDIOVASCULAR: S1, S2, regular rate. No murmur, rub or gallop. RESPIRATORY: Decreased breath sounds at bases and there are coarse crackles bilaterally at the bases. ABDOMEN: Soft. Positive bowel sounds. Nontender. No ascites. No organomegaly. EXTREMITIES: No clubbing or cyanosis. No edema of the bilateral lower extremities. AV ACCESS: The patient has a left forearm arteriovenous fistula which is being used for dialysis at this time. CENTRAL NERVOUS SYSTEM: No focal neurological deficit. Power is 5/5 in all extremities. PSYCHIATRIC: Normal mood and affect. SKIN: No rashes or ulcers. LABORATORY REVIEW: CBC showed a WBC of 10.8, hemoglobin 11.7, platelets are 293. BMP showed sodium 136, potassium 7.7, chloride 97, bicarbonate 27, BUN 61, creatinine 9.6, calcium 6.1, BMP was 1670. Troponin was less than 0.02. Microbiology: Respiratory panel is negative by PCR. Blood cultures are pending. IMAGING: CT scan of the chest was done today morning which showed small bilateral effusions, right greater than left, bilateral lower lobe discoid atelectasis, patchy area of infiltrate in the posterior segment of the right upper lobe that may be early pneumonia. ASSESSMENT: 70-year-old female with past medical history of end-stage renal disease, on hemodialysis every Wednesday, Wednesday, Wednesday, history of Garrison's granulomatosis admitted this time with progressive shortness of breath, fluid overload and hyperkalemia. PLAN: 1. Acute hypoxemic respiratory failure secondary to fluid overload. The patient is being emergently dialyzed. We shall try to do an ultrafiltration of around 3 to 4 kg as tolerated by her blood pressure. The patient will also get a repeat chest x-ray done after the hemodialysis to rule out any pneumonia. The patient has already been empirically started on antibiotics by the primary team. Continue the antibiotics until we rule out pneumonia at this time. 2. History of Garrison's granulomatosis. Continue current dose of azathioprine 50 mg by mouth daily. No need of steroids at this time. 3. Accelerated hypertension. The patient's hypertension is most likely secondary to fluid overload. Blood pressure is expected to improve after hemodialysis and ultrafiltration. The patient is currently on amlodipine 5 mg by mouth daily and metoprolol 100 mg by mouth twice a day. Continue the current dose. The rest of the recommendations are per hemodialysis tomorrow. 4. 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 Continue current dose of PhosLo and Renvela with meals. 5. Hyperkalemia. Hyperkalemia is secondary to nonadherence with low potassium diet. The patient is being dialyzed against a 1K bath and potassium is expected to improve after hemodialysis. 6. Diabetes mellitus type 2. Continue current dose of Lantus and insulin sliding scale. The rest of the management is as per primary team. Thank you for involving us in the care of this patient. We shall be happy to follow the patient along with you tomorrow morning. NARGIS
[2016-06-22 23:59] VITALS: BP 156/71
[2016-06-23 04:33] VITALS: BP 158/72
[2016-06-23] MEDS: LEVOTHYROXINE 0.137 MG TAB (137MCG) PO SCH (06:03)
[2016-06-23 08:00] VITALS: BP 190/84
[2016-06-23 08:24] LABS: BASO # 0.1 K/mm3 (0.0-0.2); BASO % 0.9 % (0.0-1.0); EOS % 0.2 % (0.0-3.0); LARGE UNSTAINED CELL # 0.1 K/mm3 (0.0-0.4); LARGE UNSTAINED CELL % 2.1 % (0.0-4.0); LYMPH # 0.4 K/mm3 (1.5-4.5); MEAN CORPUSCULAR HEMOGLOBIN 29.2 pg (27.0-33.0); MEAN CORPUSCULAR HGB CONC 30.9 g/dl (32.0-36.5); MEAN CORPUSCULAR VOLUME 94.6 fl (80.0-96.0); MONO # 0.4 K/mm3 (0.0-0.8); MONO % 6.1 % (0.0-5.0); NEUTROPHILS # 5.8 K/mm3 (1.8-7.7); NEUTROPHILS % 86.8 % (36.0-66.0); PLATELET COUNT, AUTOMATED 261 k/mm3 (150-450); RED CELL DISTRIBUTION WIDTH 19.4 % (11.5-14.5); WHITE BLOOD COUNT 6.7 K/mm3 (4.0-10.0)
[2016-06-23 08:40] VITALS: BP 172/89
[2016-06-23] MEDS: azaTHIOprine 50 MG TAB (J7500) PO SCH (08:40)
[2016-06-23] MEDS: ASPIRIN 81 MG ENTERIC TAB PO SCH (08:40)
[2016-06-23] MEDS: amLODIPine 5 MG TAB PO SCH (08:40)
[2016-06-23] MEDS: METOPROLOL TARTRATE 100 MG TAB PO SCH (08:40)
[2016-06-23] MEDS: (RENVELA) SEVELAMER **CARBONate** 800 MG TAB PO SCH ×2 (08:40→12:30)
[2016-06-23] MEDS: PANTOPRAZOLE 40MG INJ (PROTONIX) (C9113) IV SCH (08:40)
[2016-06-23] MEDS: HumaLOG INSULIN (NovoLOG) PER UNIT SC SCH ×2 (08:41→12:00)
[2016-06-23] MEDS: LEVEMIR (INSULIN DETEMIR) 1 UNITS/0.01ML SC SCH (08:41)
[2016-06-23 08:43] LABS: ALBUMIN 3.5 GM/DL (3.2-5.2); ALBUMIN/GLOBULIN RATIO 1.06 (1.00-1.93); BILIRUBIN,TOTAL 0.8 MG/DL (0.2-1.0); CALCIUM LEVEL 7.2 MG/DL (8.8-10.2); CREATININE FOR GFR 6.8 MG/DL (0.55-1.02); GLOMERULAR FILTRATION RATE 6.4 (>39); MAGNESIUM LEVEL 2.2 MG/DL (1.8-2.4); POTASSIUM SERUM 4.7 MEQ/L (3.5-5.1); TOTAL PROTEIN 6.8 GM/DL (6.4-8.2)
[2016-06-23 09:25] VITALS: BP 152/78
[2016-06-23] MEDS ORDERED: LEVA750T PO (10:22)
[2016-06-23] MEDS ORDERED: AMLO5TAB2 PO (10:22)
[2016-06-23] MEDS ORDERED: GLIP5TAB8 PO (10:32)
--- NOTE | 2016-06-23 12:21 | IPN ---
DATE: 06/23/2016 SUBJECTIVE: The patient was seen and examined today at the bedside. She is feeling much better. She got hemodialysis done yesterday. After the ultrafiltration, her shortness of breath is better. She denies any cough or wheezing. The patient got a CAT scan of the chest as well yesterday which showed a small infiltrate in the right upper lobe. She is getting IV antibiotics for this. REVIEW OF SYSTEMS: The patient denies any fever or chills, rigors, headache, nausea, vomiting, chest pain, shortness of breath, pain in abdomen, constipation or diarrhea. Rest of the review of systems is negative. OBJECTIVE: VITAL SIGNS: Temperature 97.3 degrees Fahrenheit. Blood pressure 152/78. Pulse 88. Respiratory rate 18. Saturating 93% on room air. Intake and output: The patient got hemodialysis done yesterday, 2.5 liters of fluid was removed. Weight on the bed scale is 69.4 kg. PHYSICAL EXAM: GENERAL: Patient is awake, alert, oriented times three, sitting in the bed in no apparent distress. HEAD AND NECK EXAM: Extraocular muscles intact. Pupils equally round and reactive to light. Neck is supple. There is no jugular venous distention. CARDIOVASCULAR: S1, S2. Regular rate. No murmur, rub or gallop. RESPIRATORY: Chest is clear to auscultation bilaterally. Bilateral equal air entry. No rales or rhonchi. ABDOMEN: Soft. Positive bowel sounds. Nontender. No ascites. No hepatosplenomegaly. EXTREMITIES: No clubbing or cyanosis. No edema of the bilateral lower extremities: CENTRAL NERVOUS SYSTEM (AUTOMATION DESIGN ENGINEER): No focal neurological deficit. Power is 5/5 in all extremities. LAB REVIEW: CBC showed a WBC of 6.7, hemoglobin 11.8, and platelets are 261. BMP showed sodium 137, potassium 4.7, chloride 98, bicarbonate 27, BUN 33, creatinine 6.8. Troponins are negative. Microbiology: Respiratory viral panel is negative. Blood cultures are negative. IMAGING: A chest x-ray done after dialysis yesterday showed opacity in the right upper lobe above the minor fissure and a blunting of the lateral pleural angles. CURRENT MEDICATIONS: Patient's medications are all reviewed by me. She is currently on vancomycin and Cefepime. There is no other change in the medications at this time. ASSESSMENT: 70-year-old female with past medical history of end stage renal disease on hemodialysis Wednesday, Wednesday and Wednesday and history of Garrison's granulomatosis, admitted at this time with progressive shortness of breath, fluid overload, hyperkalemia, and right upper lobe infiltrate on the imaging. Nephrology service is following the patient for management of end stage renal disease. PLAN: 1. Shortness of breath and fluid overload. The patient got dialyzed yesterday, 2.5 liters of fluid was removed. Her shortness of breath is much better and she is ambulating without any difficulty. 2. Right upper lobe infiltrate. The patient has history of immunosuppression with azathioprine. She is at risk to have opportunistic infections. Continue current antibiotics at this time. When patient is discharged, she can be discharged on oral Levaquin. 3. History of Garrison's granulomatosis. Continue current dose of azathioprine 50 mg by mouth daily. 4. Accelerated hypertension. Patient's blood pressure is better controlled today. Continue current dose of amlodipine 5 mg by mouth daily, metoprolol 100 mg by mouth twice a day. 5. Hyperkalemia. Hyperkalemia improved after dialysis yesterday. Potassium level is acceptable at this time. 6. Diabetes mellitus type 2. Continue current dose of insulin as per primary team. 7. Discharge planning. It is okay to discharge the patient from nephrology standpoint. Next hemodialysis session will be tomorrow. If patient is discharged, she can be dialyzed as an outpatient. Plan of care was discussed with the hospitalist team, Dr. Pickens.
--- NOTE | 2016-06-23 18:28 | DSES ---
DATE OF ADMISSION: 06/22/2016 DATE OF DISCHARGE: 06/23/2016 ATTENDING PHYSICIAN: Morris Pickens MD PRIMARY CARE PROVIDER: Dr. June Alvarez REFERRING PHYSICIAN: None. CONSULTING PHYSICIAN: Dr. Pineda CONDITION ON DISCHARGE: Stable. FINAL DIAGNOSIS: Acute hypoxic respiratory failure, likely multifactorial secondary to volume overload and underlying pneumonia. PROCEDURES: Urgent hemodialysis. HISTORY OF PRESENT ILLNESS: The patient is a 70-year-old female with a past medical history of end-stage renal disease on hemodialysis Wednesday, Wednesday and Wednesday, Garrison's granulomatous with renal and lung involvement on cyclophosphamide, hypertension, diabetes, hypothyroidism, history of cerebrovascular accident (CVA) with no residual weakness, who presented with complaints of shortness of breath. The patient notes that she has been having shortness of breath, having a nonproductive cough for the past three weeks. She denied any fevers or chills. No sick contacts. The patient also noted that she had 12-13 bowel movements that started last night. The patient was in severe respiratory distress and was placed on bilevel positive airway pressure (BiPAP) which provided some relief. In the emergency department, the patient noted that she was hyperkalemic and received insulin glucose, Kayexalate and went for emergent hemodialysis. HOSPITAL COURSE: 1. Acute hypoxic respiratory failure, likely secondary to volume overload as well as underlying pneumonia. The patient received emergent hemodialysis that morning which provided significant relief. The patient was initially put on bilevel positive airway pressure (BiPAP) but has been taken off. CT imaging was consistent with possible pneumonia. The patient was started on vancomycin and cefepime. The patient's leukocytosis has been trending down. Upon evaluation of the patient this morning, she was completely asymptomatic. Denied any cough or any shortness of breath. The patient was transitioned to Levaquin by mouth for completion of a seven-day course of antibiotics. 2. End-stage renal disease on hemodialysis Wednesday, Wednesday and Wednesday. She follows with Dr. Pineda and Dr. Alvarez as an outpatient. 3. Hyperkalemia with EKG changes. She received calcium gluconate, insulin glucose, Kayexalate in the emergency room, and had the emergent hemodialysis. Potassium has corrected. 4. Hypertension. Blood pressure is well controlled. 5. Hypothyroidism. Continue with Synthroid. 6. Diabetes. Hold glipizide and continue with Lantus. Upon discharge, we have reinstated glipizide. 7. Deep vein thrombosis (DVT) prophylaxis. Continue with heparin subcutaneous. DISCHARGE MEDICATIONS: The patient is being discharged home with the following: - acetaminophen one tablet by mouth every 12 hours as needed for pain - aspirin 81 mg by mouth daily - azathioprine 50 mg by mouth daily - calcium acetate three capsules by mouth with meals Wednesday and Wednesday - levothyroxine 137 mcg by mouth daily - losartan 100 mg by mouth daily - metoprolol 100 mg by mouth twice a day - sevelamer 3200 mg by mouth with meals - sodium polystyrene 15 grams by mouth as directed - vitamin D 50,000 units by mouth weekly New medications which were prescribed include: - amlodipine 5 mg by mouth daily - glipizide 5 mg by mouth daily - Levaquin 750 mg by mouth every 48 hours for three tablets DISCHARGE INSTRUCTIONS: The patient has been advised to followup with her primary care provider and nephrology within the next seven days. She has been advised to remain compliant with treatment plan and medications. She has been advised to call to schedule/confirm appointment and return to the emergency room if she experiences any problems. TIME SPENT ON DISCHARGE: 35 minutes. NARGIS
--- NOTE | 2016-06-24 15:39 | EDDOCDS ---
Nurse's Notes [facility] Name: Yara Chowdary Age: 70 yrs Sex: Female : 1945 Arrival Date: 06/22/2016 Time: 07:01 Bed 3 Private MD: Diagnosis: Shortness of breath;Hyperkalemia;Chronic kidney disease (CKD) Presentation: 06/22 07:04 Presenting complaint: EMS states: "Sudden onset of severe respiratory distress this ead morning." Pt was supposed to go to dialysis this morning. Report respiratory rate of 46 and 02 sat of 78 on arrival to pt's residence. Pt received BVM then to Cpap, peep at 10, 97% on arrival. 18 to gauge to right AC. Denies hx of COPD. Pt is Diabetic, no blood glucose at this time. Adult Sepsis Screening: The patient does not have new or worsening altered mentation. Patient has a respiratory rate of greater than or equal to 22 (1 point). Systolic blood pressure is greater than 100. Patient has a qSOFA score of 1- Negative Sepsis Screen. Suicide/Homicide risk assessment- Unable to assess, the patient is critically ill. Status: Patient is not a funeral service practitioner/embalmer or dependent. Transition of care: patient was not received from another setting of care. 07:04 Acuity: CLARY Level 2 ead 07:04 Method Of Arrival: Ambulance ead Triage Assessment: 07:18 General: Appears distressed, ill, Behavior is cooperative. Pain: Denies pain. The ead patient is triaged at the bedside. See Assessment in Nurses Notes section of ED record. Neurological: Level of Consciousness is awake, alert. Cardiovascular: Heart tones S1 S2 present Rhythm is regular Chest pain is denied. Respiratory: Onset: The symptoms/episode began/occurred this morning, Airway is patent Respiratory effort is labored, Respiratory pattern is tachypnea Reports shortness of breath. Respiratory: Breath sounds with crackles bilaterally. GI: Denies nausea, vomiting, pain. Derm: Skin is dry, Skin is pale, Skin temperature is warm. Historical: - Allergies: no known allergies; - Home Meds: 1. Kionex 15 gram/60 mL oral susp once daily 2. famciclovir 250 mg Oral tab three times a week 3. Vitamin D2 50,000 unit oral cap once wkly 4. cyclobenzaprine 5 mg Oral tab 3 times per day 5. benzonatate 100 mg oral cap every 12 hours as need for cough 6. azathioprine 50 mg Oral tab once daily 7. metformin 1,000 mg Oral tab 2 times per day 8. metoprolol tartrate 100 mg Oral tab 2 times per day 9. Compazine 10 mg Oral cpER four times a day 10. losartan-potassium 100 mg daily 11. hydrocodone-acetaminophen 5-325 mg Oral tab every 12 hours as needed 12. levothyroxine 137 mcg Oral tab once daily 13. prednisone 20 mg Oral tab 3 tabs once daily 14. Renvela 800 mg oral tab 4 tabs 3 times per day - PMHx: Hypertension; Diabetes - NIDDM: controlled; Hypothyroidism; Renal Failure with Dialysis; CVA; - PSHx: Hysterectomy; D & C; - Social history: Smoking status: Patient states was never smoker of tobacco. No barriers to communication noted, The patient speaks fluent Azeri, Speaks appropriately for age. - Family history: Not pertinent. - : The pt / caregiver states he / she is not on anticoagulants. Home medication list is obtained from pill bottles. - Exposure Risk Screening:: None identified. Screenin:35 Screening information is obtained from the patient, prior medical records. Fall risk: ead No risks identified. Advance Directives: There is an active DNR order but there is no copy available at this time. Advance directive information has been placed on a prior [facility] medical record, but the patient/ family does not know when. 14:14 Assistance ADL's: requires no assistance with activities of daily living. Abuse/DV srm Screen: The patient / caregiver reports he/she is: not in a situation that causes fear, pain or injury. Nutritional screening: No deficits noted. home support is adequate. Assessment: 07:35 General: See triage assessment. ead 09:01 General: Appears in no apparent distress, Behavior is appropriate for age, cooperative. srm Neurological: No deficits noted. Level of Consciousness is awake, alert, Oriented to person, place, time. Respiratory: Airway is patent Respiratory effort is even, unlabored, Breath sounds are clear bilaterally. bipap in place. GI: Abdomen is non- distended Bowel sounds present X 4 quads. Abd is soft and non tender X 4 quads. Derm: Skin is intact, Skin is dry, Skin is pale, pink. 09:27 General: per dr feldman- pt to dialysis now. . srm 09:39 General: pt transported top dialysis on 2LNC- POX 96% on arrival to dept. report given srm to joselito langley. . 13:55 General: pt returned from dialysis. pt appears and states she feels better than going srm to dialysis. per Lita langley in dialysis- they removed 2.5 kilo. resp easy at this time./pox 98% on 2 LNC. pt sent to CT /rad. 14:11 General: increased staining to left dialysis graft to arm. called and spoke with joselito langley- pressure dressing applied. . Cardiovascular: Rhythm is sinus rhythm. Respiratory: Airway is patent Respiratory effort is even, unlabored, Breath sounds are clear bilaterally. Respiratory: Airway. Derm: Skin is intact, Skin is dry, Skin is pink. 14:23 General: no further bleeding noted from dialysis graft when pressure dressing released. srm reapplied stacy looser than with the pressure dressing. will reeval. 14:37 General: Appears in no apparent distress, Behavior is appropriate for age, cooperative. srm Pain: Denies pain. EENT: No deficits noted. Cardiovascular: Rhythm is sinus rhythm. Respiratory: No deficits noted. Vital Signs: 07:04 BP 190 / 84 (auto/); ead 07:08 BP 194 / 84; Pulse 140; Resp 24; Temp 97.5(TE); Pulse Ox 97% ; Weight 69.85 kg (M); ct3 07:08 Pulse 139 MON; Pulse Ox 98% ; ead 07:15 BP 180 / 70 (auto/); ead 07:15 Pulse 136 MON; Pulse Ox 95% ; ead 07:38 BP 192 / 79 (auto/); ead 07:38 Pulse 117 MON; Pulse Ox 97% ; ead 07:42 Temp 97.0(R); ead 08:00 BP 180 / 84 (auto/); ead 08:00 Pulse 116 MON; Pulse Ox 97% ; ead 08:15 BP 185 / 77 (auto/); ead 08:15 Pulse 110 MON; Pulse Ox 99% on CPAP; ead 08:30 Pulse 104 MON; Pulse Ox 99% ; srm 08:30 BP 177 / 77 (auto/); srm 08:45 Pulse 105 MON; Pulse Ox 84% ; srm 08:45 BP 185 / 79 (auto/); srm 09:00 BP 192 / 80 (auto/); srm 09:00 Pulse 110 MON; Resp 24 S; Pulse Ox 89% ; srm 09:15 Pulse 122 MON; Pulse Ox 100% ; srm 09:15 BP 235 / 99 (auto/); srm 09:29 Pulse 68 MON; Pulse Ox 97% ; srm 09:30 BP 200 / 84 (auto/); srm 09:35 BP 200 / 84; Pulse 71 MON; Resp 22 S; Pulse Ox 97% on 2 lpm NC; srm 14:11 BP 206 / 91; Pulse 87; Resp 18; Temp 97.7(TE); Pulse Ox 99% on 2 lpm NC; Pain 0/10; srm 14:37 BP 209 / 92; Pulse 87; Resp 18; Pulse Ox 99% ; Pain 0/10; srm Vitals: 07:08 Log In Time N/A - ambulance arrival. ct3 ED Course: 07:03 Patient visited by Brissa Elizondo, Chief Cloth Finishing Range Operator. deg 07:03 Sharmin Hamilton,RN is Primary Nurse. deg 07:03 Patient moved to Waiting deg 07:03 Patient moved to 3 deg 07:07 Jill Dunn MD is Attending Physician. fg 07:07 Patient visited by Jill Dunn MD. fg 07:07 Triage Initiated ead 07:08 Patient has correct armband on for positive identification. Bed in low position. Call ct3 light in reach. Side rails up X2. painter interior finish on. Pulse ox on. NIBP on. 07:09 Patient visited by Selene Richardson PCA. ct3 07:17 EKG done. (by ED staff). Reviewed by Jill Dunn MD. ct3 07:18 Patient visited by Selene Richardson PCA. ct3 07:24 -Arterial Blood Gas Sent. cs15 07:34 -Blood Culture Sent. ead 07:34 B-Type Natiuretic Peptide Sent. ead 07:34 Basic Metabolic Profile Sent. ead 07:34 Troponin Sent. ead 07:34 CBC with Diff Sent. ead 07:35 The patient / caregiver is instructed regarding the plan of care and ED course. ead 07:35 Maintain field IV. Dressing intact. Good blood return noted. Site clean & dry. Gauge & ead site: 18 gauge to right AC. . 07:37 Patient visited by Sharmin Hamilton RN. ead 07:51 BLOOD CULTURES Sent. ct3 07:58 Chest, 1 View Returned. EDMS 08:30 Patient visited by Sharmin Hamilton RN. ead 08:50 Report given to Eli Aguirre RN. ead 09:02 Chris Esposiot is Hospitalizing Provider. fg 09:03 Patient visited by Eli Aguirre RN. srm 09:40 Patient visited by Eli Aguirre RN. srm 10:05 [facility] Payment Agreement was scanned into [employer] and attached to record. lg 13:09 EKG-ADULT Returned. EDMS 13:58 Patient visited by Eli Aguirre RN. srm 14:14 No procedures done that require assistance. srm 14:16 Patient visited by Eli Aguirre RN. srm 14:25 Patient visited by Eli Aguirre RN. srm 06/23 10:26 T-Sheet-- Draft Copy was scanned into [employer] and attached to record. gb 10:26 ECG/EKG was scanned into [employer] and attached to record. gb 10:26 PCR was scanned into [employer] and attached to record. gb 06/24 12:40 Trend VS was scanned into [employer] and attached to record. gb Administered Medications: 06/22 07:42 Drug: Nitrostat 0.4 mg [Nitrostat 0.4 mg sublingual tablet (1 tabs)] Route: Sublingual; ead 08:47 Drug: Calcium Gluconate 1 grams [calcium gluconate 100 mg/mL (10 %) intravenous ead solution] {Co-Signature: srm (Eli Aguirre RN).} Route: IVPB; Infused Over: 1 hrs; Site: right antecubital; 08:51 Drug: Albuterol 2.5 mg [albuterol sulfate 2.5 mg/0.5 mL solution for nebulization (0.5 cs15 mL)] Route: Nebulizer; 09:00 Drug: Polystyrene 15 grams [sodium polystyrene sulfonate 15 gram/60 mL oral suspension srm (1200 drps)] Route: PO; 09:14 Drug: Insulin Regular Human 10 units [insulin regular human 100 unit/mL injection srm solution (0.1 mL)] {Co-Signature: ead (Sharmin Hamilton RN).} Route: IVP; Site: right antecubital; 09:14 Drug: D50W 50 ml [dextrose 50 % in water (D50W) intravenous syringe (50 mL)] Route: srm IVP; Site: right antecubital; Attachments: 06/24 12:40 Trend VS gb RT: 06/22 07:24 ABG's drawn from right radial artery allens test done and positive pressure held for 5 cs15 minutes no bleeding noted pressure bandage applied specimen sent pt. tolerated well. C-PAP of 10 on 60% Fio2. 07:28 Respiratory: Breath sounds are coarse bilaterally. Breath sounds with crackles in right cs15 posterior middle lobe and right posterior lower lobe. 08:52 Initial Med Neb Given as ordered. Respiratory: Respiratory effort is Respiratory cs15 pattern is regular tachypnea Breath sounds with crackles bilaterally. Order Results: Lab Order: B-Type Natiuretic Peptide; SPEC'M 06/22/16 07:32 Test: BRAIN NATRIURETIC PEPTIDE; Value: 1670; Range: <100; Abnormal: Above high normal; Units: PG/ML; Status: F Lab Order: Basic Metabolic Profile; SPEC'M 06/22/16 07:32 Test: GLUCOSE, FASTING; Value: 397; Range: 83-110; Abnormal: Above high normal; Units: MG/DL; Status: F Test: BLOOD UREA NITROGEN; Value: 61; Range: 7-18; Abnormal: Above high normal; Units: MG/DL; Status: F Test: CREATININE FOR GFR; Value: 9.66; Range: 0.55-1.02; Abnormal: Above high normal; Units: MG/DL; Status: F Test: GLOMERULAR FILTRATION RATE; Value: 4.2; Range: >39; Abnormal: Below low normal; Status: F Test: SODIUM LEVEL; Value: 136; Range: 136-145; Units: MEQ/L; Status: F Test: POTASSIUM SERUM; Value: 7.7; Range: 3.5-5.1; Abnormal: Above upper panic limits; Units: MEQ/L; Status: F Test: CHLORIDE LEVEL; Value: 97; Range: 98-107; Abnormal: Below low normal; Units: MEQ/L; Status: F Test: CARBON DIOXIDE LEVEL; Value: 27; Range: 21-32; Units: MEQ/L; Status: F Test: ANION GAP; Value: 12; Range: 8-16; Units: MEQ/L; Status: F Test: CALCIUM LEVEL; Value: 6.1; Range: 8.8-10.2; Abnormal: Below low normal; Units: MG/DL; Status: F Test Note: ; Units are mL/min/1.73 m2 Chronic Kidney Disease Staging per NKF: Stage I & II GFR >=60 Normal to Mildly Decreased Stage III GFR 30-59 Moderately Decreased Stage IV GFR 15-29 Severely Decreased Stage V GFR <15 Very Little GFR Left ESRD GFR <15 on CHILD THERAPIST Lab Order: CBC with Diff; SPEC'M 06/22/16 07:32 Test: WHITE BLOOD COUNT; Value: 10.8; Range: 4.0-10.0; Abnormal: Above high normal; Units: K/mm3; Status: F Test: RED BLOOD COUNT; Value: 3.81; Range: 4.00-5.40; Abnormal: Below low normal; Units: M/mm3; Status: F Test: HEMOGLOBIN; Value: 11.7; Range: 12.0-16.0; Abnormal: Below low normal; Units: g/dl; Status: F Test: HEMATOCRIT; Value: 37.1; Range: 36.0-47.0; Units: %; Status: F Test: MEAN CORPUSCULAR VOLUME; Value: 97.4; Range: 80.0-96.0; Abnormal: Above high normal; Units: fl; Status: F Test: MEAN CORPUSCULAR HEMOGLOBIN; Value: 30.8; Range: 27.0-33.0; Units: pg; Status: F Test: MEAN CORPUSCULAR HGB CONC; Value: 31.6; Range: 32.0-36.5; Abnormal: Below low normal; Units: g/dl; Status: F Test: RED CELL DISTRIBUTION WIDTH; Value: 18.4; Range: 11.5-14.5; Abnormal: Above high normal; Units: %; Status: F Test: PLATELET COUNT, AUTOMATED; Value: 293; Range: 150-450; Units: k/mm3; Status: F Test: NEUTROPHILS %; Value: 92.0; Range: 36.0-66.0; Abnormal: Above high normal; Units: %; Status: F Test: LYMPH %; Value: 3.0; Range: 24.0-44.0; Abnormal: Below low normal; Units: %; Status: F Test: MONO %; Value: 3.1; Range: 0.0-5.0; Units: %; Status: F Test: EOS %; Value: 0.3; Range: 0.0-3.0; Units: %; Status: F Test: BASO %; Value: 0.5; Range: 0.0-1.0; Units: %; Status: F Test: LARGE UNSTAINED CELL %; Value: 1.0; Range: 0.0-4.0; Units: %; Status: F Test: NEUTROPHILS #; Value: 9.9; Range: 1.8-7.7; Abnormal: Above high normal; Units: K/mm3; Status: F Test: LYMPH #; Value: 0.3; Range: 1.5-4.5; Abnormal: Below low normal; Units: K/mm3; Status: F Test: MONO #; Value: 0.3; Range: 0.0-0.8; Units: K/mm3; Status: F Test: EOS #; Value: 0.0; Range: 0.0-0.50; Units: K/mm3; Status: F Test: BASO #; Value: 0.0; Range: 0.0-0.2; Units: K/mm3; Status: F Test: LARGE UNSTAINED CELL #; Value: 0.1; Range: 0.0-0.4; Units: K/mm3; Status: F Lab Order: Troponin; SPEC'M 06/22/16 07:32 Test: TROPONIN I; Value: < 0.02; Range: < 0.10; Units: NG/ML; Status: F Test Note: ; Troponin I Reference Interval for [employer] [facility] LOCI: 99th Percentile= 0.00-0.045 ng/ml Risk Stratification: <= 0.10 ng/ml Decreased Risk for Adverse Clinical Events. 0.10-1.50 ng/ml Increased Risk for Adverse Clinical Events. Evaluation of additional criterion and/or repeat testing in 2-6 hours is suggested to rule out myocardial damage. >= 1.50 ng/ml Indicative of Myocardial Injury. Lab Order: -Arterial Blood Gas; SPEC'M 06/22/16 07:22 Test: ABG pH (ARTERIAL); Value: 7.333; Range: 7.350-7.450; Abnormal: Below low normal; Units: UNITS; Status: F Test: ABG PARTIAL PRESSURE CO2; Value: 43.5; Range: 35.0-45.0; Units: mmHg; Status: F Test: ABG PARTIAL PRESSURE O2; Value: 81.5; Range: 75.0-100.0; Units: mmHg; Status: F Test: ABG TOTAL CO2; Value: 23.9; Range: 23.0-31.0; Units: MEQ/L; Status: F Test: ABG HCO3; Value: 22.6; Range: 22.0-26.0; Units: MEQ/L; Status: F Test: ABG BASE EXCESS; Value: -3.2; Range: -2.0-2.0; Abnormal: Below low normal; Status: F Test: ABG STANDARD HCO3; Value: 21.7; Range: 22.0-26.0; Abnormal: Below low normal; Units: MEQ/L; Status: F Test: ABG O2 SATURATION; Value: 92.8; Range: 95.0-99.0; Abnormal: Below low normal; Units: %; Status: F Test: ABG DEVICE; Value: NASAL EMILY; Status: F Lab Order: CARDIAC INJURY PROFILE; [facility]06/22/16 10:10 Test: CPK CREATINE PHOSPHOKINASE; Value: 51; Range: 26-192; Units: U/L; Status: F Test: CK-MB VALUE MASS; Value: 1.0; Range: 0.0-3.6; Units: NG/ML; Status: F Test: MB/CK RELATIVE INDEX; Value: 1.96; Range: < OR =4; Status: F Test Note: ; DIAGNOSIS CRITERIA MMB ng/ml Relative Index (RI) NON-AMI < or = 5 N/A [place] > 5 < or = 4 AMI > 5 > 4 Lab Order: TROPONIN; [facility]'06/22/16 10:10 Test: TROPONIN I; Value: < 0.02; Range: < 0.10; Units: NG/ML; Status: F Test Note: ; Troponin I Reference Interval for [employer] LOCI: 99th Percentile= 0.00-0.045 ng/ml Risk Stratification: <= 0.10 ng/ml Decreased Risk for Adverse Clinical Events. 0.10-1.50 ng/ml Increased Risk for Adverse Clinical Events. Evaluation of additional criterion and/or repeat testing in 2-6 hours is suggested to rule out myocardial damage. >= 1.50 ng/ml Indicative of Myocardial Injury. Radiology Order: Chest, 1 View Test: Chest, 1 View REASON FOR EXAMINATION: Shortness of Breath; Clinical: Shortness of breath.; ; Comparison: 06/06/2015.; ; Findings:; B[place]spr with tip in the SVC.; Mild cardiomegaly cannot be excluded.; Bilateral infiltrates/opacities are suspected (right greater than left).; Effusion cannot be excluded. No pneumothorax. 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 fg 14:15 Condition: good Condition: stable Condition: improved. CT Study completed. Property srm :Personal belongings accompany Pt. 14:37 Discharge Assessment: Patient awake, alert and oriented x 3. No cognitive and/or srm functional deficits noted. Patient verbalized understanding of disposition instructions. patient administered narcotics - no. The following High Risk Discharge criteria are identified: None. Admitted to PCU accompanied by nurse, accompanied by tech, via stretcher, with oxygen, on monitor, with chart. 14:39 Patient left the ED. hs1 Signatures: Dispatcher [employer] EDBrissa Nichols, Chief Cloth Finishing Range Operator Unit deg Eli Aguirre, HERIBERTO RN srm Karen Malik, Reg Reg gb CemValentin gonzalez, Reg Reg lg Ashley De Dios RN RN hs1 Selene Richardson, VAT TENDER VAT TENDER ct3 Sharmin Hamilton RN RN ead Gill, Frances, MD MD fg Shelton, Caleb,RT RT cs15 Sharmin Aguirre RN srm Corrections: (The following items were deleted from the chart) 09:41 09:35 Pulse 71bpm; MonitorResp 22bpm; Spontaneous; Pulse Ox 97%; srm srm Chart Complete MTDD
--- NOTE | 2016-06-24 15:39 | EDDOCDS ---
Physician Documentation [facility] Name: Yara Chowdary Age: 70 yrs Sex: Female : 1945 Arrival Date: 06/22/2016 Time: 07:01 Bed 3 Private MD: Disposition: 06/22/16 09:03 Hospitalization ordered by Chris Esposito for Inpatient Admission. Preliminary diagnosis are Shortness of breath, Hyperkalemia, Chronic kidney disease (CKD). - Bed requested for PCU. - Status is Inpatient Admission. hs1 - Condition is Stable. - Problem is chronic. - Symptoms have worsened. Historical: - Allergies: no known allergies; - Home Meds: 1. Kionex 15 gram/60 mL oral susp once daily 2. famciclovir 250 mg Oral tab three times a week 3. Vitamin D2 50,000 unit oral cap once wkly 4. cyclobenzaprine 5 mg Oral tab 3 times per day 5. benzonatate 100 mg oral cap every 12 hours as need for cough 6. azathioprine 50 mg Oral tab once daily 7. metformin 1,000 mg Oral tab 2 times per day 8. metoprolol tartrate 100 mg Oral tab 2 times per day 9. Compazine 10 mg Oral cpER four times a day 10. losartan-potassium 100 mg daily 11. hydrocodone-acetaminophen 5-325 mg Oral tab every 12 hours as needed 12. levothyroxine 137 mcg Oral tab once daily 13. prednisone 20 mg Oral tab 3 tabs once daily 14. Renvela 800 mg oral tab 4 tabs 3 times per day - PMHx: Hypertension; Diabetes - NIDDM: controlled; Hypothyroidism; Renal Failure with Dialysis; CVA; - PSHx: Hysterectomy; D & C; - Social history: Smoking status: Patient states was never smoker of tobacco. No barriers to communication noted, The patient speaks fluent Romanian, Speaks appropriately for age. - Family history: Not pertinent. - : The pt / caregiver states he / she is not on anticoagulants. Home medication list is obtained from pill bottles. - Exposure Risk Screening:: None identified. Vital Signs: 06/22 07:04 BP 190 / 84 (auto/); ead 07:08 BP 194 / 84; Pulse 140; Resp 24; Temp 97.5(TE); Pulse Ox 97% ; Weight 69.85 kg / 153.99 ct3 lbs (M); 07:08 Pulse 139 MON; Pulse Ox 98% ; ead 07:15 BP 180 / 70 (auto/); ead 07:15 Pulse 136 MON; Pulse Ox 95% ; ead 07:38 BP 192 / 79 (auto/); ead 07:38 Pulse 117 MON; Pulse Ox 97% ; ead 07:42 Temp 97.0(R); ead 08:00 BP 180 / 84 (auto/); ead 08:00 Pulse 116 MON; Pulse Ox 97% ; ead 08:15 BP 185 / 77 (auto/); ead 08:15 Pulse 110 MON; Pulse Ox 99% on CPAP; ead 08:30 Pulse 104 MON; Pulse Ox 99% ; srm 08:30 BP 177 / 77 (auto/); srm 08:45 Pulse 105 MON; Pulse Ox 84% ; srm 08:45 BP 185 / 79 (auto/); srm 09:00 BP 192 / 80 (auto/); srm 09:00 Pulse 110 MON; Resp 24 S; Pulse Ox 89% ; srm 09:15 Pulse 122 MON; Pulse Ox 100% ; srm 09:15 BP 235 / 99 (auto/); srm 09:29 Pulse 68 MON; Pulse Ox 97% ; srm 09:30 BP 200 / 84 (auto/); srm 09:35 BP 200 / 84; Pulse 71 MON; Resp 22 S; Pulse Ox 97% on 2 lpm NC; srm 14:11 BP 206 / 91; Pulse 87; Resp 18; Temp 97.7(TE); Pulse Ox 99% on 2 lpm NC; Pain 0/10; srm 14:37 BP 209 / 92; Pulse 87; Resp 18; Pulse Ox 99% ; Pain 0/10; srm MDM: 07:08 Call Respiratory ordered. fg 07:08 Eyeglass Lens Grinder/Pulse Ox/q 15 min VS ordered. fg 07:08 IV Saline Lock ordered. fg 07:08 Oxygen at 4L/Min NC or Home dosage ordered. fg 07:08 Rhythm Strip to chart ordered. fg 07:09 Chest, 1 View Ordered. EDMS 07:09 -Blood Culture Ordered. EDMS 07:09 B-Type Natiuretic Peptide Ordered. EDMS 07:09 Basic Metabolic Profile Ordered. EDMS 07:09 CBC with Diff Ordered. EDMS 07:09 Troponin Ordered. EDMS 07:09 ECG WITH READING ER PHYS+CARDIAG ordered. EDMS 07:13 Rectal Temp ordered. fg 07:15 -Arterial Blood Gas Ordered. EDMS 07:16 Call Respiratory complete. deg 07:17 BLOOD CULTURES Ordered. EDMS 07:21 Nitrostat 0.4 mg Sublingual once ordered. fg 08:00 BED REQUEST+ADM ordered. EDMS 08:25 Insulin Regular Human 10 units IVP once ordered. fg 08:25 Albuterol 2.5 mg Nebulizer once ordered. fg 08:25 Polystyrene Suspension 15 grams PO once ordered. fg 08:26 D50W 50 ml IVP once; (1 amp) ordered. fg 08:34 Calcium Gluconate 1 grams IVPB once over 1 hrs; add to 100mL of NS ordered. fg 09:02 Financial registration complete. lg 09:09 CT Chest without contrast Ordered. EDMS 09:57 Admission / Observation Status ordered. EDMS 09:58 NPO DIET ordered. EDMS 09:58 CARDIAC INJURY PROFILE Ordered. EDMS 09:58 CARDIAC INJURY PROFILE Ordered. EDMS 09:58 TROPONIN Ordered. EDMS 09:58 TROPONIN Ordered. EDMS 09:58 LEGIONELLA ANTIGEN URINE Ordered. EDMS 09:58 URINE STREP PNEUMONIAE ANTIGEN Ordered. EDMS 09:59 RESPIRATORY PANEL Ordered. EDMS 09:59 SPUTUM CULTURE AND GRAM STAIN Ordered. EDMS 09:59 GASTROINTESTINAL (GI) PANEL Ordered. EDMS 10:05 [facility] Payment Agreement was scanned into [employer] and attached to record. lg 10:51 Chest, 2 view PA, Lat Ordered. EDMS 12:38 BASIC METABOLIC PROFILE Ordered. EDMS 12:38 MAGNESIUM LEVEL Ordered. EDMS 06/23 10:26 T-Sheet-- Draft Copy was scanned into [employer] and attached to record. gb 10:26 ECG/EKG was scanned into [employer] and attached to record. gb 10:26 PCR was scanned into [employer] and attached to record. gb 06/24 12:40 Trend VS was scanned into [employer] and attached to record. gb Administered Medications: 06/22 07:42 Drug: Nitrostat 0.4 mg [Nitrostat 0.4 mg sublingual tablet (1 tabs)] Route: Sublingual; ead 08:47 Drug: Calcium Gluconate 1 grams [calcium gluconate 100 mg/mL (10 %) intravenous ead solution] {Co-Signature: srm (Eli Carla RN).} Route: IVPB; Infused Over: 1 hrs; Site: right antecubital; 08:51 Drug: Albuterol 2.5 mg [albuterol sulfate 2.5 mg/0.5 mL solution for nebulization (0.5 cs15 mL)] Route: Nebulizer; 09:00 Drug: Polystyrene 15 grams [sodium polystyrene sulfonate 15 gram/60 mL oral suspension srm (1200 drps)] Route: PO; 09:14 Drug: Insulin Regular Human 10 units [insulin regular human 100 unit/mL injection srm solution (0.1 mL)] {Co-Signature: ead (Sharmin Hamilton RN).} Route: IVP; Site: right antecubital; 09:14 Drug: D50W 50 ml [dextrose 50 % in water (D50W) intravenous syringe (50 mL)] Route: srm IVP; Site: right antecubital; Signatures: Dispatcher [employer] EDMS Brissa Elizondo, Environmental Services Technician Unit deg Karen Malik, Reg Reg gb Valentin Johnson, Reg Reg lg Ashley De Dios RN RN hs1 Sharmin HamiltonRN RN Jill Lea MD MD fg Andrews, Steven RN Eli Alston sa, RN Kwaku Finleyeb RT cs15 Sharmin dennis The chart was reviewed and I authenticate all verbal orders and agree with the evaluation and treatment provided.Corrections: (The following items were deleted from the chart) 09:59 09:59 GASTROINTESTINAL (GI) PANEL ordered. EDMS EDMS 09:59 09:59 GASTROINTESTINAL (GI) PANEL ordered. EDMS EDMS Attachments: 10:05 [facility] Payment Agreement lg 06/23 10:26 T-Sheet-- Draft Copy gb 10:26 ECG/EKG gb Chart Complete MTDD
--- NOTE | 2016-06-24 15:39 | EDDOCDS ---
Physician Documentation [facility] Name: Yara Chowdary Age: 70 yrs Sex: Female : 1945 Arrival Date: 06/22/2016 Time: 07:01 Bed 3 Private MD: Disposition: 06/22/16 09:03 Hospitalization ordered by Chris Esposito for Inpatient Admission. Preliminary diagnosis are Shortness of breath, Hyperkalemia, Chronic kidney disease (CKD). - Bed requested for PCU. - Status is Inpatient Admission. hs1 - Condition is Stable. - Problem is chronic. - Symptoms have worsened. Historical: - Allergies: no known allergies; - Home Meds: 1. Kionex 15 gram/60 mL oral susp once daily 2. famciclovir 250 mg Oral tab three times a week 3. Vitamin D2 50,000 unit oral cap once wkly 4. cyclobenzaprine 5 mg Oral tab 3 times per day 5. benzonatate 100 mg oral cap every 12 hours as need for cough 6. azathioprine 50 mg Oral tab once daily 7. metformin 1,000 mg Oral tab 2 times per day 8. metoprolol tartrate 100 mg Oral tab 2 times per day 9. Compazine 10 mg Oral cpER four times a day 10. losartan-potassium 100 mg daily 11. hydrocodone-acetaminophen 5-325 mg Oral tab every 12 hours as needed 12. levothyroxine 137 mcg Oral tab once daily 13. prednisone 20 mg Oral tab 3 tabs once daily 14. Renvela 800 mg oral tab 4 tabs 3 times per day - PMHx: Hypertension; Diabetes - NIDDM: controlled; Hypothyroidism; Renal Failure with Dialysis; CVA; - PSHx: Hysterectomy; D & C; - Social history: Smoking status: Patient states was never smoker of tobacco. No barriers to communication noted, The patient speaks fluent Tajik, Speaks appropriately for age. - Family history: Not pertinent. - : The pt / caregiver states he / she is not on anticoagulants. Home medication list is obtained from pill bottles. - Exposure Risk Screening:: None identified. Vital Signs: 06/22 07:04 BP 190 / 84 (auto/); ead 07:08 BP 194 / 84; Pulse 140; Resp 24; Temp 97.5(TE); Pulse Ox 97% ; Weight 69.85 kg / 153.99 ct3 lbs (M); 07:08 Pulse 139 MON; Pulse Ox 98% ; ead 07:15 BP 180 / 70 (auto/); ead 07:15 Pulse 136 MON; Pulse Ox 95% ; ead 07:38 BP 192 / 79 (auto/); ead 07:38 Pulse 117 MON; Pulse Ox 97% ; ead 07:42 Temp 97.0(R); ead 08:00 BP 180 / 84 (auto/); ead 08:00 Pulse 116 MON; Pulse Ox 97% ; ead 08:15 BP 185 / 77 (auto/); ead 08:15 Pulse 110 MON; Pulse Ox 99% on CPAP; ead 08:30 Pulse 104 MON; Pulse Ox 99% ; srm 08:30 BP 177 / 77 (auto/); srm 08:45 Pulse 105 MON; Pulse Ox 84% ; srm 08:45 BP 185 / 79 (auto/); srm 09:00 BP 192 / 80 (auto/); srm 09:00 Pulse 110 MON; Resp 24 S; Pulse Ox 89% ; srm 09:15 Pulse 122 MON; Pulse Ox 100% ; srm 09:15 BP 235 / 99 (auto/); srm 09:29 Pulse 68 MON; Pulse Ox 97% ; srm 09:30 BP 200 / 84 (auto/); srm 09:35 BP 200 / 84; Pulse 71 MON; Resp 22 S; Pulse Ox 97% on 2 lpm NC; srm 14:11 BP 206 / 91; Pulse 87; Resp 18; Temp 97.7(TE); Pulse Ox 99% on 2 lpm NC; Pain 0/10; srm 14:37 BP 209 / 92; Pulse 87; Resp 18; Pulse Ox 99% ; Pain 0/10; srm MDM: 07:08 Call Respiratory ordered. fg 07:08 Cath Lab Radiological Technologist/Pulse Ox/q 15 min VS ordered. fg 07:08 IV Saline Lock ordered. fg 07:08 Oxygen at 4L/Min NC or Home dosage ordered. fg 07:08 Rhythm Strip to chart ordered. fg 07:09 Chest, 1 View Ordered. EDMS 07:09 -Blood Culture Ordered. EDMS 07:09 B-Type Natiuretic Peptide Ordered. EDMS 07:09 Basic Metabolic Profile Ordered. EDMS 07:09 CBC with Diff Ordered. EDMS 07:09 Troponin Ordered. EDMS 07:09 ECG WITH READING ER PHYS+CARDIAG ordered. EDMS 07:13 Rectal Temp ordered. fg 07:15 -Arterial Blood Gas Ordered. EDMS 07:16 Call Respiratory complete. deg 07:17 BLOOD CULTURES Ordered. EDMS 07:21 Nitrostat 0.4 mg Sublingual once ordered. fg 08:00 BED REQUEST+ADM ordered. EDMS 08:25 Insulin Regular Human 10 units IVP once ordered. fg 08:25 Albuterol 2.5 mg Nebulizer once ordered. fg 08:25 Polystyrene Suspension 15 grams PO once ordered. fg 08:26 D50W 50 ml IVP once; (1 amp) ordered. fg 08:34 Calcium Gluconate 1 grams IVPB once over 1 hrs; add to 100mL of NS ordered. fg 09:02 Financial registration complete. lg 09:09 CT Chest without contrast Ordered. EDMS 09:57 Admission / Observation Status ordered. EDMS 09:58 NPO DIET ordered. EDMS 09:58 CARDIAC INJURY PROFILE Ordered. EDMS 09:58 CARDIAC INJURY PROFILE Ordered. EDMS 09:58 TROPONIN Ordered. EDMS 09:58 TROPONIN Ordered. EDMS 09:58 LEGIONELLA ANTIGEN URINE Ordered. EDMS 09:58 URINE STREP PNEUMONIAE ANTIGEN Ordered. EDMS 09:59 RESPIRATORY PANEL Ordered. EDMS 09:59 SPUTUM CULTURE AND GRAM STAIN Ordered. EDMS 09:59 GASTROINTESTINAL (GI) PANEL Ordered. EDMS 10:05 [facility] [place] Payment Agreement was scanned into [employer] and attached to record. lg 10:51 Chest, 2 view PA, Lat Ordered. EDMS 12:38 BASIC METABOLIC PROFILE Ordered. EDMS 12:38 MAGNESIUM LEVEL Ordered. EDMS 06/23 10:26 T-Sheet-- Draft Copy was scanned into [employer] and attached to record. gb 10:26 ECG/EKG was scanned into [employer] and attached to record. gb 10:26 PCR was scanned into [employer] and attached to record. gb 06/24 12:40 Trend VS was scanned into [employer] and attached to record. gb Administered Medications: 06/22 07:42 Drug: Nitrostat 0.4 mg [Nitrostat 0.4 mg sublingual tablet (1 tabs)] Route: Sublingual; ead 08:47 Drug: Calcium Gluconate 1 grams [calcium gluconate 100 mg/mL (10 %) intravenous ead solution] {Co-Signature: srm (Eli Carla RN).} Route: IVPB; Infused Over: 1 hrs; Site: right antecubital; 08:51 Drug: Albuterol 2.5 mg [albuterol sulfate 2.5 mg/0.5 mL solution for nebulization (0.5 cs15 mL)] Route: Nebulizer; 09:00 Drug: Polystyrene 15 grams [sodium polystyrene sulfonate 15 gram/60 mL oral suspension srm (1200 drps)] Route: PO; 09:14 Drug: Insulin Regular Human 10 units [insulin regular human 100 unit/mL injection srm solution (0.1 mL)] {Co-Signature: ead (Sharmin Hamilton RN).} Route: IVP; Site: right antecubital; 09:14 Drug: D50W 50 ml [dextrose 50 % in water (D50W) intravenous syringe (50 mL)] Route: srm IVP; Site: right antecubital; Signatures: Dispatcher [employer] EDMS Brisas Elizondo, Escrow Manager Unit deg Karen Malik, Reg Reg gb Valentin Johnson, Reg Reg lg Ashley De Dios RN RN hs1 Sharmin HamiltonRN RN Jill Lea MD MD fg Andrews, Steven RN Eli Alston sa, RN Kwaku Finleyeb RT cs15 Sharmin dennis The chart was reviewed and I authenticate all verbal orders and agree with the evaluation and treatment provided.Corrections: (The following items were deleted from the chart) 09:59 09:59 GASTROINTESTINAL (GI) PANEL ordered. EDMS EDMS 09:59 09:59 GASTROINTESTINAL (GI) PANEL ordered. EDMS EDMS Attachments: 10:05 [facility] Payment Agreement lg 06/23 10:26 T-Sheet-- Draft Copy gb 10:26 ECG/EKG gb Chart Complete MTDD
[2016-06-26 00:08] LABS: ORGANISM ID Not indicated. (.); SPECIMEN SOURCE Urine (.)
== END 2016-06-23 13:07 | disposition home or self-care (01) | DRG 193 ==
LOC: M ED 07:01 → M ED INP 09:52 → M PCU 14:45
PROVIDERS: ADMIT Internal Medicine; ATTEND Internal Medicine
DX: J18.9 Pneumonia, unspecified organism (principal); N18.6 End stage renal disease; J96.01 Acute respiratory failure with hypoxia; M31.31 Wegener's granulomatosis with renal involvement; E87.5 Hyperkalemia; E87.70 Fluid overload, unspecified; E11.9 Type 2 diabetes mellitus without complications; Z86.73 Personal history of transient ischemic attack (TIA), and cerebral infarction without residual deficits; E03.9 Hypothyroidism, unspecified; Z79.899 Other long term (current) drug therapy; Z79.82 Long term (current) use of aspirin

== ENCOUNTER → 2016-07-16 | Outpatient (CLI) | payer MEDICARE ==
[~2016-07-16] MED LIST changes: +AMLO5TAB2 PO; +AZAT5TAB PO; +DRIS50002 PO; +GLIP5TAB8 PO; +LEVA750T PO; +LOSA100T36 PO; +METO100T PO; +NORC5TAB PO; +RENV2TAB PO; +SODI15SS PO
--- NOTE | 2016-07-16 13:23 | REP ---
Bilateral carotid artery duplex ultrasound: Peak flow velocity analysis: RIGHT LEFT ICA. Peak flow velocity cm/sec 49 38 ICA Diastolic flow velocity cm/sec 9.9 8.5 ICA/CCA Ratio 0.85 0.51 There is intimal thickening extending from the bulbs into the proximal ICAs and ECAs bilaterally. The peak flow velocities are normal. The findings indicate less than 50% narrowing bilaterally. Utilizing the NASCET criteria, there is no significant stenosis. There is antegrade flow in the vertebral arteries bilaterally. There is no significant change from the prior study of 03/17/2013. Signed by Filiberto Ferreira MD 07/16/2016 01:14 P
== END ==
LOC: M RAD 12:04
PROVIDERS: ATTEND Internal Medicine Nephrology
DX: I65.23 Occlusion and stenosis of bilateral carotid arteries (principal)

== ENCOUNTER → 2016-08-05 | Outpatient (CLI) | payer MEDICARE ==
--- NOTE | 2016-08-05 17:27 | REP ---
CT CHEST WITHOUT IV CONTRAST: CT chest is performed without IV contrast. Sagittal and coronal reconstruction images are performed. Comparison is made with prior study of 06/22/2016. The previously noted bilateral infiltrates and effusion have resolved. Mild bibasilar linear fibrotic changes are present. There is mild diffuse bronchiectasis. There is no significant adenopathy is seen in the mediastinal or hilar regions. The heart is normal in size. There is no pleural or pericardial effusion remaining. Linear calcific density in the right lower lobe appears to be related to the linear parenchymal scarring. Thyroid appears prominent in size. There appear to be a couple of stable cysts in the liver. There is a large gallstone in the gallbladder. IMPRESSION: Previously noted bilateral infiltrates and effusions have resolved with bibasilar fibrotic scarring now present. No definite adenopathy. Large gallstone in the gallbladder. Signed by Filiberto Henderson MD 08/06/2016 03:50 P
== END ==
LOC: M RAD 13:45
PROVIDERS: ATTEND Nurse Practitioner Family
DX: M31.30 Wegener's granulomatosis without renal involvement (principal); K80.20 Calculus of gallbladder without cholecystitis without obstruction

== ENCOUNTER → 2017-06-29 | Outpatient (CLI) | payer MEDICARE ==
[~2017-06-29] MED LIST changes: -/BISA10SU PR; -/GLIP10TAB PO; -/GUAIMAX PO; -/IPRAINH INH; -/MOXI40TA PO; -ADV500INH INH; -ALBU17IN INH; -AMLO5TAB2 PO; -ASPI1TAB PO; -ASPI1TAB5 OR; -AUGM875T27 PO; -AZAT5TAB PO; -BISAC5TA OR; -CAPTO25TA PO; -CEFT500T PO; -CEFU125S PO; -CYCL50TA PO; -DARB300VL IV; -DIOV320T PO; -DIOV40TA PO; -DOCU10ELUD OR; -DRIS50002 PO; -DULC100C OR; -FLEXERIL PO; -GLIP10TA6 PO; -GLIP5TAB2 PO; -GLIP5TAB8 PO; -GLUC10TA3 OR; -GLUC500T PO; -GLYB5TA PO; -INSULADS SC; -INSULANT SC; +ISOVUE-300 61% 50ML VIAL (Q9967) As Ordered; -LANTUS INSULIN SC; -LEVA750T PO; -LEVO137T PO; -LEVO137T14 PO; -LEVO500T PO; -LIPI20TA OR; -LOPR1TAB6 PO; -LOSA100T36 PO; -METF1000 PO; -METO100T PO; -MOM30SS OR; -NEUR250S PO; -NORC5TAB PO; -PHOS667C PO; -PRED10TA PO; -PRED10TA2 PO; -PROAAER INH; -RENV2TAB PO; -SENN8.6T76 PO; -SODI15SS PO; -SYMB80INH INH; -SYNT25TA PO; -TUMS500C OR; -VANCOMYCIN IV; -VENTAER INH; -VESI5TAB PO; -VIBR100C PO; -ZOFR20TA PO
== END | disposition home or self-care (01) ==
LOC: M IRPRO 13:03
DX: T82.848A Pain due to vascular prosthetic devices, implants and grafts, initial encounter (principal); T82.590A Other mechanical complication of surgically created arteriovenous fistula, initial encounter; N18.6 End stage renal disease; Z99.2 Dependence on renal dialysis
CPT/HCPCS: 36901

== ENCOUNTER → 2017-11-02 | Outpatient (CLI) | payer MEDICARE ==
[~2017-11-02] MED LIST changes: -ISOVUE-300 61% 50ML VIAL (Q9967) As Ordered; +ISOVUE-370 76% 100ML VIAL (Q9967) As Ordered
== END ==
LOC: M RAD 14:33
DX: R31.9 Hematuria, unspecified (principal); M31.31 Wegener's granulomatosis with renal involvement; E87.5 Hyperkalemia; K76.89 Other specified diseases of liver; I70.0 Atherosclerosis of aorta
CPT/HCPCS: Q9967

== ENCOUNTER 2017-11-25 07:35 | Day surgery (SDC) | payer MEDICARE ==
[2017-11-25] MEDS ORDERED: PROPOFOL 200 MG/20 ML VIAL As Ordered ×2 (07:44→10:07)
[2017-11-25] MEDS ORDERED: LIDOCAINE 2% INJ 100 MG/5 ML SDV (FOR ANES.) As Ordered (07:44)
[2017-11-25] MEDS: NS 1,000 ML IV (07:45)
[2017-11-25 09:10] LABS: ANION GAP 12 MEQ/L (8-16); CARBON DIOXIDE LEVEL 30 MEQ/L (21-32); CHLORIDE LEVEL 97 MEQ/L (98-107); POTASSIUM SERUM 3.6 MEQ/L (3.5-5.1); SODIUM LEVEL 139 MEQ/L (136-145)
[2017-11-25] MEDS ORDERED: PHENYLephrine HCL 500 MCG/5 ML (100MCG/ML) SYRINGE (J2370) As Ordered (10:25)
== END 2017-11-25 11:07 | disposition home or self-care (01) ==
LOC: M OPP 07:35
DX: Z12.11 Encounter for screening for malignant neoplasm of colon (principal); D12.0 Benign neoplasm of cecum; D12.2 Benign neoplasm of ascending colon; D12.3 Benign neoplasm of transverse colon; D12.4 Benign neoplasm of descending colon; K64.8 Other hemorrhoids; I12.9 Hypertensive chronic kidney disease with stage 1 through stage 4 chronic kidney disease, or unspecified chronic kidney disease; E11.9 Type 2 diabetes mellitus without complications; E03.9 Hypothyroidism, unspecified; D64.9 Anemia, unspecified; M19.90 Unspecified osteoarthritis, unspecified site; I63.9 Cerebral infarction, unspecified; N18.9 Chronic kidney disease, unspecified; Z99.2 Dependence on renal dialysis; Z79.82 Long term (current) use of aspirin; Z79.899 Other long term (current) drug therapy; Z79.84 Long term (current) use of oral hypoglycemic drugs
CPT/HCPCS: 45385

== ENCOUNTER → 2017-12-30 | Outpatient (CLI) | payer MEDICARE ==
[~2017-12-30] MED LIST changes: +ISOVUE-300 61% 50ML VIAL (Q9967) As Ordered; -ISOVUE-370 76% 100ML VIAL (Q9967) As Ordered; +LIDOCAINE 2% MDV 20 ML VIAL As Ordered
== END | disposition home or self-care (01) ==
LOC: M IRPRO 07:42
DX: T82.590A Other mechanical complication of surgically created arteriovenous fistula, initial encounter (principal); I12.0 Hypertensive chronic kidney disease with stage 5 chronic kidney disease or end stage renal disease; E11.22 Type 2 diabetes mellitus with diabetic chronic kidney disease; N18.6 End stage renal disease
CPT/HCPCS: 36901

== ENCOUNTER 2018-03-17 08:23 | Day surgery (SDC) | payer MEDICARE ==
[2018-03-17] MEDS: NS 1,000 ML IV (06:00)
[2018-03-17] MEDS ORDERED: LIDOCAINE 2% INJ 100 MG/5 ML SDV (FOR ANES.) As Ordered (09:53)
[2018-03-17] MEDS ORDERED: PROPOFOL 200 MG/20 ML VIAL As Ordered ×2 (09:53)
== END 2018-03-17 10:57 | disposition home or self-care (01) ==
LOC: M OPP 08:23
DX: Z09 Encounter for follow-up examination after completed treatment for conditions other than malignant neoplasm (principal); Z86.010 Personal history of colon polyps; D37.4 Neoplasm of uncertain behavior of colon; D12.7 Benign neoplasm of rectosigmoid junction; D12.3 Benign neoplasm of transverse colon; D12.2 Benign neoplasm of ascending colon; D12.0 Benign neoplasm of cecum; K64.8 Other hemorrhoids; I12.9 Hypertensive chronic kidney disease with stage 1 through stage 4 chronic kidney disease, or unspecified chronic kidney disease; E11.9 Type 2 diabetes mellitus without complications; E03.9 Hypothyroidism, unspecified; D64.9 Anemia, unspecified; I63.9 Cerebral infarction, unspecified; N18.9 Chronic kidney disease, unspecified; Z99.2 Dependence on renal dialysis; Z92.21 Personal history of antineoplastic chemotherapy; Z79.82 Long term (current) use of aspirin; Z79.84 Long term (current) use of oral hypoglycemic drugs; Z79.899 Other long term (current) drug therapy
CPT/HCPCS: 45380

== ENCOUNTER → 2018-03-17 | Outpatient (CLI) | payer MEDICARE ==
[2018-03-17 08:48] LABS: BASO # 0.1 10^3/uL (0.0-0.2); BASO % 1.1 % (0.0-1.0); HEMATOCRIT 36.3 % (36.0-47.0); HEMOGLOBIN 11.7 g/dl (12.0-15.5); IMMATURE GRANULOCYTE % 0.4 % (0-3.0); LYMPH # 0.7 10^3/uL (1.5-4.5); LYMPH % 12.8 % (24.0-44.0); MEAN CORPUSCULAR HEMOGLOBIN 29.6 pg (27.0-33.0); MEAN CORPUSCULAR HGB CONC 32.2 g/dl (32.0-36.5); MEAN CORPUSCULAR VOLUME 91.9 fl (80.0-96.0); MONO # 0.5 10^3/uL (0.0-0.8); MONO % 9.4 % (0.0-5.0); NEUTROPHILS % 76.3 % (36.0-66.0); PLATELET COUNT, AUTOMATED 285 10^3/uL (150-450); RED BLOOD COUNT 3.95 10^6/uL (4.00-5.40); RED CELL DISTRIBUTION WIDTH 15.9 % (11.5-14.5); WHITE BLOOD COUNT 5.3 10^3/uL (4.0-10.0)
[2018-03-17 09:16] LABS: ANION GAP 13 MEQ/L (8-16); BLOOD UREA NITROGEN 36 MG/DL (7-18); CALCIUM LEVEL 9.2 MG/DL (8.8-10.2); CARBON DIOXIDE LEVEL 32 MEQ/L (21-32); CHLORIDE LEVEL 92 MEQ/L (98-107); CREATININE FOR GFR 6.56 MG/DL (0.55-1.30); FERRITIN 1212 NG/ML (8-252); GLOMERULAR FILTRATION RATE 6.6 (>39); GLUCOSE, FASTING 82 MG/DL (70-100); IRON (FE) 97 UG/DL (50-170); PERCENT SATURATION 47.1 % (13.2-45.0); SODIUM LEVEL 137 MEQ/L (136-145); TOTAL IRON BINDING CAPACITY 206 UG/DL (250-450)
== END ==
LOC: M LAB 07:56
DX: D12.4 Benign neoplasm of descending colon (principal)

== ENCOUNTER → 2018-04-07 | Outpatient (CLI) | payer MEDICARE ==
[~2018-04-07] MED LIST changes: +MIDAZOLAM INJ 2 MG/2 ML VIAL (J2250) As Ordered; +fentaNYL 100 MCG/2 ML INJECTION (J3010) As Ordered
== END | disposition home or self-care (01) ==
LOC: M IRPRO 08:47
DX: T82.858A Stenosis of other vascular prosthetic devices, implants and grafts, initial encounter (principal); N18.6 End stage renal disease; Z99.2 Dependence on renal dialysis
CPT/HCPCS: 36902

== ENCOUNTER 2018-05-29 11:14 | Emergency (ER) | payer MEDICARE ==
[~2018-05-29] VITALS: Ht 160 cm; Wt 68.2 kg
[~2018-05-29 11:14] MED LIST changes: +/BISA10SU PR; +/GLIP10TAB PO; +/GUAIMAX PO; +/IPRAINH INH; +/MOXI40TA PO; +ADV500INH INH; +ALBU17IN INH; +AMLO5TAB4 PO; +ASPI1TAB PO; +ASPI1TAB5 OR; +AUGM875T28 PO; +AZAT50TA2 PO; +BISAC5TA OR; +CAPTO25TA PO; +CEFT500T PO; +CEFU125S PO; +CYCL50TA PO; +DARB300VL IV; +DIOV320T PO; +DIOV40TA PO; +DOCU10ELUD OR; +DRIS50003 PO; +DULC100C OR; +FLEXERIL PO; +GLIP10TA6 PO; +GLIP5TAB2 PO; +GLIP5TAB8 PO; +GLUC10TA3 OR; +GLUC500T PO; +GLYB5TA PO; +HYDR-3910 PO; +INSULADS SC; +INSULANT SC; -ISOVUE-300 61% 50ML VIAL (Q9967) As Ordered; +LANTUS INSULIN SC; +LEVA750T7 PO; +LEVO137T PO; +LEVO137T14 PO; +LEVO500T PO; -LIDOCAINE 2% MDV 20 ML VIAL As Ordered; +LIPI20TA OR; +LOPR1TAB6 PO; +LOSA-4 PO; +METF1000 PO; +METF10004 PO; +METO100T5 PO; -MIDAZOLAM INJ 2 MG/2 ML VIAL (J2250) As Ordered; +MOM30SS OR; +NEUR250S PO; +NORC1TAB4 PO; +PHOS667C5 PO; +PRED10TA PO; +PRED10TA2 PO; +PROAAER INH; +RENV2TAB PO; +SENN8.6T76 PO; +SODI15SS PO; +SYMB80INH INH; +SYNT25TA PO; +TUMS500C OR; +TUMS500C PO; +VANCOMYCIN IV; +VELT1POW PO; +VENTAER INH; +VESI5TAB PO; +VESI5TAB2 PO; +VIBR100C PO; +ZOFR4TAB16 PO; -fentaNYL 100 MCG/2 ML INJECTION (J3010) As Ordered
[2018-05-29 11:44] LABS: BASO # 0.1 10^3/uL (0.0-0.2); BASO % 0.6 % (0.0-1.0); HEMATOCRIT 33.1 % (36.0-47.0); HEMOGLOBIN 10.9 g/dl (12.0-15.5); LYMPH # 0.7 10^3/uL (1.5-4.5); LYMPH % 6.1 % (24.0-44.0); MEAN CORPUSCULAR HEMOGLOBIN 30.4 pg (27.0-33.0); MEAN CORPUSCULAR HGB CONC 32.9 g/dl (32.0-36.5); MEAN CORPUSCULAR VOLUME 92.5 fl (80.0-96.0); MONO # 0.5 10^3/uL (0.0-0.8); MONO % 4.2 % (0.0-5.0); NEUTROPHILS # 10.4 10^3/uL (1.8-7.7); NEUTROPHILS % 88.5 % (36.0-66.0); PLATELET COUNT, AUTOMATED 233 10^3/uL (150-450); RED BLOOD COUNT 3.58 10^6/uL (4.00-5.40); WHITE BLOOD COUNT 11.7 10^3/uL (4.0-10.0)
[2018-05-29 12:10] LABS: CREATININE FOR GFR 4.19 MG/DL (0.55-1.30); POTASSIUM SERUM 3.1 MEQ/L (3.5-5.1)
[2018-05-29 13:19] VITALS: BP 172/72
--- NOTE | 2018-05-29 19:31 | ECGEPIP ---
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
== END 2018-05-29 13:20 | disposition home or self-care (01) ==
LOC: M ED 11:14 → EDBD 11:14 → M ED 13:20
DX: R42 Dizziness and giddiness (principal); E11.9 Type 2 diabetes mellitus without complications; I12.0 Hypertensive chronic kidney disease with stage 5 chronic kidney disease or end stage renal disease; E07.9 Disorder of thyroid, unspecified; N18.6 End stage renal disease; Z99.2 Dependence on renal dialysis; Z79.899 Other long term (current) drug therapy

== ENCOUNTER → 2018-08-17 | Outpatient (CLI) | payer MEDICARE ==
[~2018-08-17] MED LIST changes: -AMLO5TAB4 PO; +AMLO5TAB6 PO; -LOSA-4 PO; +LOSA100T50 PO
--- NOTE | 2018-08-17 20:27 | REPMRS ---
Patient History The patient states she has not had a clinical breast exam in over a year. Patient does not know family history due to leaving home at a young age. No cancer hx, infusaport used for medication Digital Mammo Screening Bilat: August 17, 2018 - Exam #: [id number] Bilateral CC and MLO view(s) were taken. Technologist: Shanae Amezquita, Technologist FINDINGS: There are scattered fibroglandular densities. New baseline mammogram, prior in 2005 no longer available. There is a mild amount of residual fibroglandular tissue which is fairly symmetric. There is no dominant mass, architectural distortion, or clustered microcalcification suggestive of malignancy. Large coarse benign appearing calcifications are present on the left. There are scattered, small, benign calcifications of doubtful clinical significance. 3-D tomosynthesis shows no additional findings. Assessment: BI-RADS/ACR category 2 mammogram. Benign Findings. Recommendation Routine screening mammogram in 1 year (for women over age 40). This mammogram was interpreted with the aid of an FDA-approved computer-aided dectection system. A. Negative x-ray reports should not delay biopsy if a dominant or clinically suspicious mass is present. B. Four to eight percent of cancers are not identified by mammography. C. Adenosis and dense breast may obscure an underlying neoplasm. Electronically Signed By: Oseas Berger MD 08/17/182026
== END ==
LOC: M RAD 13:36
PROVIDERS: ATTEND Family Medicine
DX: Z12.31 Encounter for screening mammogram for malignant neoplasm of breast (principal); R92.1 Mammographic calcification found on diagnostic imaging of breast

== ENCOUNTER 2018-08-28 19:49 | Emergency (ER) | payer MEDICARE ==
[~2018-08-28] VITALS: Ht 154.9 cm; Wt 70.4 kg
[~2018-08-28 19:49] MED LIST changes: -/BISA10SU PR; -/IPRAINH INH; -/MOXI40TA PO; -ASPI1TAB PO; +ASPI81TA26 PO; +ATRO0.063 INH; +AVEL1TAB2 PO; +BISA10SU31 PR; +CAPT1TAB PO; -CAPTO25TA PO; -DOCU10ELUD OR; +DOCU5LIQ OR; +GLYB-147 PO; -GLYB5TA PO; -NORC1TAB4 PO; +NORC1TAB7 PO; +PRED-351 PO; -PRED10TA PO
[2018-08-28] MEDS ORDERED: MORPHINE 4 MG/ML 1ML VIAL/SYRINGE (J2270) IM ONE (20:15)
[2018-08-28] MEDS ORDERED: TYLE325T5 PO (20:32)
--- NOTE | 2018-08-28 20:59 | REPVR ---
EXAM: CT Lumbar Spine Without Contrast EXAM DATE/TIME: 08/28/2018 8:19 PM CLINICAL HISTORY: 72 years old, female; Pain; Low back pain; Additional info: Pain/renal dis TECHNIQUE: Imaging protocol: Axial computed tomography images of the lumbar spine without intravenous contrast. Coronal and sagittal reformatted images were created and reviewed. Radiation optimization: All CT scans at this facility use at least one of these dose optimization techniques: automated exposure control; mA and/or kV adjustment per patient size (includes targeted exams where dose is matched to clinical indication); or iterative reconstruction. COMPARISON: MRI-Spine, L.S. without con 04/02/2015 4:00 PM FINDINGS: Vertebrae: Mild retrolisthesis of L4 on L5. Otherwise unremarkable. Discs/Spinal canal/Neural foramina: There is a mild central spinal stenosis at L3-4 secondary to diffuse annular bulging, thickened ligamentum flavum and facet joint arthropathy. No foraminal or lateral recess stenosis. There is a moderate central spinal stenosis at L4-5 secondary to diffuse annular bulging, thickened ligamentum flavum and facet joint arthropathy. Mild bilateral foraminal stenosis secondary to the retrolisthesis and bulging annulus. No lateral recess stenosis. Diffusely bulging annulus at L5-S1. No central spinal stenosis. Soft tissues: Atherosclerotic calcifications in the abdominal aorta. No aneurysm. Otherwise unremarkable. IMPRESSION: Mild central spinal stenosis at L3-4 and moderate central spinal stenosis at L4-5. Electronically signed by: Luis Payne On 08/28/2018 20:59:09 PM
--- NOTE | 2018-08-28 21:02 | REPVR ---
EXAM: CT Abdomen and Pelvis Without Contrast EXAM DATE/TIME: 08/28/2018 8:19 PM CLINICAL HISTORY: 72 years old, female; Pain; Abdominal pain; Additional info: Pain/renal dis TECHNIQUE: Imaging protocol: Axial computed tomography images of the abdomen and pelvis without contrast. Coronal and sagittal reformatted images were created and reviewed. Radiation optimization: All CT scans at this facility use at least one of these dose optimization techniques: automated exposure control; mA and/or kV adjustment per patient size (includes targeted exams where dose is matched to clinical indication); or iterative reconstruction. COMPARISON: CT ABD PELVIS W/O FOL BY WIT 11/02/2017 2:57 PM FINDINGS: Lower thorax: Atelectasis both lung bases. ABDOMEN: Liver: Small hepatic cysts measure up to 13 millimeters. Gallbladder and bile ducts: Cholelithiasis. Pancreas: Normal. No ductal dilation. Spleen: Normal. No splenomegaly. Adrenals: Normal. No mass. Kidneys and ureters: Bilateral renal atrophy consistent with history of chronic renal failure. Stomach and bowel: Normal. No obstruction. No mucosal thickening. Appendix: No evidence of appendicitis. PELVIS: Bladder: Unremarkable as visualized. Reproductive: There has been a hysterectomy. ABDOMEN and PELVIS: Intraperitoneal space: Normal. No free air. No significant fluid collection. Bones/joints: No acute fracture. No dislocation. See accompanying lumbar spine CT report. Soft tissues: Bilateral inguinal hernias. Vasculature: The aorta demonstrates mild atherosclerotic calcification. Lymph nodes: Normal. No enlarged lymph nodes. IMPRESSION: 1. Cholelithiasis. 2. Bilateral renal atrophy consistent with history of chronic renal failure. 3. There has been a hysterectomy. COMMENT: Consistent with the [employer] [place] [employer]'s Incidental Findings Committee Report (J Am Radha Radiol 2010): Unless the patient's specific circumstances suggest otherwise, any liver lesion 0.5 cm or less, any cystic kidney lesion less than 1.0 cm, and/or any adrenal lesion 1.0 cm or less not otherwise characterized in this report as possessing suspicious or indeterminate imaging features is/are highly likely to be benign and do not require follow-up imaging or biopsy. Electronically signed by: Luis Payne On 08/28/2018 21:01:53 PM
[2018-08-28 21:34] VITALS: BP 167/76
--- NOTE | 2018-08-29 11:13 | ED PDOC ---
Post-Departure Follow-Up dr olivas faxed formal report of ct abd/p amnd ct ls spine for fu Brigitte Marlow MD Aug 29, 2018 11:13
== END 2018-08-28 21:36 | disposition home or self-care (01) ==
LOC: M ED 19:49
DX: S39.012A Strain of muscle, fascia and tendon of lower back, initial encounter (principal); X58.XXXA Exposure to other specified factors, initial encounter; Y92.9 Unspecified place or not applicable; Y93.9 Activity, unspecified; Y99.9 Unspecified external cause status; K80.20 Calculus of gallbladder without cholecystitis without obstruction; M48.061 Spinal stenosis, lumbar region without neurogenic claudication; E11.9 Type 2 diabetes mellitus without complications; I10 Essential (primary) hypertension; M31.30 Wegener's granulomatosis without renal involvement; N18.6 End stage renal disease; Z99.2 Dependence on renal dialysis; Z79.82 Long term (current) use of aspirin; Z79.84 Long term (current) use of oral hypoglycemic drugs; Z79.899 Other long term (current) drug therapy
CPT/HCPCS: 72131; 74176; 96372; 99283; J2270

== ENCOUNTER → 2018-08-30 | Outpatient (CLI) | payer MEDICARE ==
[~2018-08-30] MED LIST changes: +BUPIVACAINE HCL 0.5% 10 ML VIAL As Ordered ONE; +ISOVUE-300 61% 50ML VIAL (Q9967) As Ordered ONE; +LIDOCAINE 2% MDV 20 ML VIAL As Ordered ONE; +MIDAZOLAM INJ 2 MG/2 ML VIAL (J2250) As Ordered ONE; +TYLE325T5 PO; +fentaNYL 100 MCG/2 ML INJECTION (J3010) As Ordered ONE
--- NOTE | 2018-09-07 13:31 | REPIR ---
DATE OF PROCEDURE: 08/30/2018 ATTENDING SURGEON: Dr. Vianney Bingham ROOM SERVER: Yuridia Dean and Yara Chowdary PREOPERATIVE DIAGNOSES: End-stage renal disease. 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 POSTOPERATIVE DIAGNOSES: End-stage renal disease. 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 PROCEDURE: Left brachiocephalic arteriovenous fistulogram. Retrograde left brachial artery angiogram. Left cephalic vein angioplasty with 8 x 200 mm balloon. INDICATION: Patient is a 72-hour-old female with end-stage renal disease and a left brachiocephalic arteriovenous fistula which is aneurysmal and pulsatile. The patient will undergo a fistulogram with possible angioplasty, stent and/or atherectomy. Risks, benefits and alternative treatment options were discussed with the patient. ANESTHESIA: Local with sedation with 1 mg Versed, 50 mcg of fentanyl and 4 mL of one 2% lidocaine mixed with 0.5% Marcaine. SEDATION TIME: Was from 12:59 p.m. to 01:16 p.m. for a total of 17 minutes. FLUORO TIME: 0.7 minutes. CONTRAST: 4 mL of ISOVUE-300. HEPARIN: None. COMPLICATIONS: None. DRAINS: None. SPECIMENS: None. IMPLANTS: None. PROCEDURE: Patient was taken to the angiography suite, placed supine on the angiography room table and then prepped and draped in a standard surgical fashion. The left brachiocephalic arteriovenous fistula was cannulated and a fistulogram was performed showing stenosis in the cephalic vein in the mid upper arm of approximately 80%. The cephalic vein underwent angioplasty with 8 x 200 balloon during which time a retrograde left brachial artery angiogram was performed showing no intervention required. A completion fistulogram was performed showing resolution of the stenosis with excellent flow through the fistula and into the central venous system with no stenosis noted. Catheters and wires were removed. The sheath was removed and a #2-0 Prolene suture was placed at the puncture site for hemostasis. Dressings were then applied. The patient was transferred to the holding area and subsequently discharged in stable condition. The fistula was stable for continued use for hemodialysis access.
== END | disposition home or self-care (01) ==
LOC: M IRPRO 10:03
PROVIDERS: ATTEND Surgery Vascular Surgery
DX: T82.858A Stenosis of other vascular prosthetic devices, implants and grafts, initial encounter (principal); N18.6 End stage renal disease; X58.XXXA Exposure to other specified factors, initial encounter; Y92.9 Unspecified place or not applicable
CPT/HCPCS: 36902; C1725; C1769; C1894; J2250; J3010; Q9967

== ENCOUNTER 2018-10-16 17:26 | Emergency (ER) | payer MEDICARE ==
[~2018-10-16] VITALS: Ht 154.9 cm; Wt 72.3 kg
[~2018-10-16 17:26] MED LIST changes: -BUPIVACAINE HCL 0.5% 10 ML VIAL As Ordered ONE; -ISOVUE-300 61% 50ML VIAL (Q9967) As Ordered ONE; -LIDOCAINE 2% MDV 20 ML VIAL As Ordered ONE; -MIDAZOLAM INJ 2 MG/2 ML VIAL (J2250) As Ordered ONE; -fentaNYL 100 MCG/2 ML INJECTION (J3010) As Ordered ONE
[2018-10-16] MEDS ORDERED: LIDOCAINE 5% (LIDODERM) PATCH TD ONE (18:00)
[2018-10-16] MEDS ORDERED: ACETAMINOPHEN 500 MG TAB PO ONE (18:15)
[2018-10-16] MEDS ORDERED: MORPHINE 10 MG/ML 1ML VIAL (J2270) IM ONE (19:15)
[2018-10-16 20:14] VITALS: BP 191/91
== END 2018-10-16 20:17 | disposition home or self-care (01) ==
LOC: M ED 17:26
DX: S39.012A Strain of muscle, fascia and tendon of lower back, initial encounter (principal); E11.9 Type 2 diabetes mellitus without complications; I10 Essential (primary) hypertension; G89.29 Other chronic pain; M54.9 Dorsalgia, unspecified; N18.6 End stage renal disease; Z99.2 Dependence on renal dialysis; Z79.82 Long term (current) use of aspirin; Z79.84 Long term (current) use of oral hypoglycemic drugs; Z79.899 Other long term (current) drug therapy
CPT/HCPCS: 96372; 99284; J2270

== ENCOUNTER 2019-05-30 01:18 | Emergency (ER) | payer MEDICARE ==
[~2019-05-30] VITALS: Ht 154.9 cm; Wt 66.4 kg
[2019-05-30] MEDS ORDERED: MORPHINE 10 MG/ML 1ML VIAL (J2270) IM ONE (03:15)
[2019-05-30 03:58] VITALS: BP 188/77
== END 2019-05-30 04:37 | disposition home or self-care (01) ==
LOC: M ED 01:18
DX: S39.012A Strain of muscle, fascia and tendon of lower back, initial encounter (principal); X58.XXXA Exposure to other specified factors, initial encounter; Y92.9 Unspecified place or not applicable; Y93.E2 Activity, laundry; Y99.9 Unspecified external cause status; N18.6 End stage renal disease; Z79.82 Long term (current) use of aspirin; Z79.899 Other long term (current) drug therapy
CPT/HCPCS: 96372; 99283; J2270

== ENCOUNTER 2019-05-31 19:19 | Emergency (ER) | payer MEDICARE ==
[~2019-05-31] VITALS: Ht 180.3 cm; Wt 68.2 kg
[2019-05-31] MEDS ORDERED: MORPHINE 4 MG/ML 1ML VIAL/SYRINGE (J2270) IV PRN (20:15)
[2019-05-31] MEDS ORDERED: ONDANSETRON 4MG/2ML VIAL (J2405) IV ONE (20:15)
[2019-05-31] MEDS ORDERED: NS 1,000 ML IV SCH (20:15)
--- NOTE | 2019-05-31 20:30 | REP ---
Clinical: Acute chest pain. Technique: PA and lateral. Comparison: 06/22/2016. Findings: [id number] in stable position with tip in the SVC. Mediastinum and cardiac silhouette are normal. Lung gabriel demonstrate stable chronic changes. No acute consolidation, effusion, or pneumothorax. Skeletal structures intact. Impression: Chronic stable changes. No acute cardiopulmonary process. Electronically Signed by Anurag Zhang MD 05/31/2019 08:22 P
[2019-05-31 21:09] LABS: BASO % 0.5 % (0.0-1.0); HEMATOCRIT 33.6 % (36.0-47.0); HEMOGLOBIN 10.4 g/dl (12.0-15.5); MEAN CORPUSCULAR HEMOGLOBIN 29.5 pg (27.0-33.0); MEAN CORPUSCULAR VOLUME 95.5 fl (80.0-96.0); MONO # 0.7 10^3/uL (0.0-0.8); MONO % 7.8 % (0.0-5.0); NEUTROPHILS # 6.7 10^3/uL (1.5-8.5); NEUTROPHILS % 79.2 % (36.0-66.0); PLATELET COUNT, AUTOMATED 290 10^3/uL (150-450); RED BLOOD COUNT 3.52 10^6/uL (4.00-5.40); WHITE BLOOD COUNT 8.4 10^3/uL (4.0-10.0)
--- NOTE | 2019-05-31 21:16 | REPVR ---
PROCEDURE INFORMATION: Exam: CT Thoracic Spine Without Contrast Exam date and time: 05/31/2019 8:08 PM Age: 73 years old Clinical indication: Pain in thoracic spine; Additional info: Tenderness t4-7, atraumatic TECHNIQUE: Imaging protocol: Computed tomography images of the thoracic spine without contrast. Radiation optimization: All CT scans at this facility use at least one of these dose optimization techniques: automated exposure control; mA and/or kV adjustment per patient size (includes targeted exams where dose is matched to clinical indication); or iterative reconstruction. COMPARISON: No relevant prior studies available. FINDINGS: Vertebrae: No acute fracture. Normal alignment. Discs/Spinal canal/Neural foramina: Minimal degenerative spurring anteriorly in the lower thoracic spine. No spinal or foraminal stenosis. Soft tissues: Unremarkable. Lungs: Minimal bilateral lower lobe fibro-atelectatic change with minimal bronchiectasis. IMPRESSION: 1. Minimal bilateral lower lobe fibro-atelectatic change. 2. Minimal degenerative spurring anteriorly in the lower thoracic spine. 3. Otherwise negative CT thoracic spine. No fracture or subluxation is evident and no spinal or foraminal stenosis. Electronically signed by: Gregory Fallon On 05/31/2019 21:15:45 PM
[2019-05-31 21:37] LABS: BLOOD UREA NITROGEN 64 MG/DL (7-18); CALCIUM LEVEL 7.3 MG/DL (8.8-10.2); CARBON DIOXIDE LEVEL 26 MEQ/L (21-32); CHLORIDE LEVEL 99 MEQ/L (98-107); CK-MB VALUE MASS 1.2 NG/ML (<3.6); CPK CREATINE PHOSPHOKINASE 53 U/L (26-192); CREATININE FOR GFR 7.11 MG/DL (0.55-1.30); GLUCOSE, FASTING 130 MG/DL (70-100); MB/CK RELATIVE INDEX 2.26 (< OR =4); POTASSIUM SERUM 3.8 MEQ/L (3.5-5.1); SODIUM LEVEL 139 MEQ/L (136-145); TROPONIN I < 0.02 NG/ML (< 0.10)
[2019-05-31] MEDS ORDERED: OXYCODONE/APAP 5MG/325MG(BULK FOR ED) 1 TABLET PO ONE (22:00)
[2019-05-31 22:18] VITALS: BP 170/72
--- NOTE | 2019-06-01 05:35 | ECGEPIP ---
[facility] - ED Test Date: 2019-05-31 Pat Name: JEAN MARIE BUSTAMANTE Department: Room: - Gender: Female [employer]: KCJ : 1945 Requested By: Juliana Triana PA-C Order Number: [id number] Reading MD: Massimo Johnson Measurements Intervals [place] Rate: 79 P: 60 MN: 175 QRS: 62 QRSD: 90 T: 41 QT: 411 QTc: 472 Interpretive Statements SINUS RHYTHM NSTTW ABNORMALITIES SIMILAR TO 05/29/18 Electronically Signed on 06-01-2019 5:35:19 EST by Massimo Johnson
== END 2019-05-31 22:36 | disposition home or self-care (01) ==
LOC: M ED 19:19
DX: M54.89 Other dorsalgia (principal); M47.814 Spondylosis without myelopathy or radiculopathy, thoracic region; R93.7 Abnormal findings on diagnostic imaging of other parts of musculoskeletal system; E11.9 Type 2 diabetes mellitus without complications; E03.9 Hypothyroidism, unspecified; I10 Essential (primary) hypertension; Z86.73 Personal history of transient ischemic attack (TIA), and cerebral infarction without residual deficits; N18.9 Chronic kidney disease, unspecified; Z99.2 Dependence on renal dialysis; M31.30 Wegener's granulomatosis without renal involvement; Z79.82 Long term (current) use of aspirin; Z79.899 Other long term (current) drug therapy
CPT/HCPCS: 71046; 72128; 80048; 82550; 82553; 84484; 85025; 93005; 96374; 96375; 99284; J2270; J2405

== ENCOUNTER 2019-10-07 21:36 | Emergency (ER) | payer MEDICARE ==
[~2019-10-07] VITALS: Ht 154.9 cm; Wt 66.1 kg
[2019-10-07] MEDS ORDERED: LANT1000 PO (21:46)
[2019-10-07] MEDS ORDERED: HYDR-3911 (21:46)
[2019-10-07] MEDS ORDERED: VITA50005 (21:46)
[2019-10-07] MEDS ORDERED: CALC1CAP (21:46)
[2019-10-07] MEDS ORDERED: ACET-683 PO (21:46)
[2019-10-07] MEDS ORDERED: METHOCARBAMOL 1,000 MG/10 ML VIAL (J2800) IV ONE (22:30)
[2019-10-07] MEDS ORDERED: methylPREDNISolone INJ 125 MG/2 ML VIAL (J2930) IV ONE (22:30)
[2019-10-08] MEDS ORDERED: PRED20TA PO (00:41)
[2019-10-08] MEDS ORDERED: ROBA750T4 PO (00:41)
[2019-10-08] MEDS ORDERED: NORCO 5/325MG TABLET (BULK FOR ED) PO ONE (00:45)
[2019-10-08 01:59] VITALS: BP 201/85
== END 2019-10-08 02:10 | disposition home or self-care (01) ==
LOC: M ED 21:36
DX: S39.012A Strain of muscle, fascia and tendon of lower back, initial encounter (principal); X58.XXXA Exposure to other specified factors, initial encounter; Y92.89 Other specified places as the place of occurrence of the external cause; Y93.9 Activity, unspecified; Y99.9 Unspecified external cause status; Z86.73 Personal history of transient ischemic attack (TIA), and cerebral infarction without residual deficits; N18.6 End stage renal disease; Z79.899 Other long term (current) drug therapy
CPT/HCPCS: 36415; 96374; 96375; 99284; J2800; J2930

== ENCOUNTER 2019-10-15 14:10 | Emergency (ER) | payer MEDICARE ==
[~2019-10-15] VITALS: Ht 154.9 cm; Wt 68.1 kg
[~2019-10-15 14:10] MED LIST changes: +ACET-683 PO; +CALC1CAP; +HYDR-3911; +LANT1000 PO; +PRED20TA PO; +ROBA750T4 PO; +VITA50005
[2019-10-15] MEDS ORDERED: LOPR1TAB7 PO (14:21)
[2019-10-15] MEDS ORDERED: ACETAMINOPHEN TAB 650MG DOSE (2X325MG) PO ONE (15:15)
[2019-10-15] MEDS ORDERED: ULTR50TA8 PO (15:15)
[2019-10-15] MEDS ORDERED: traMADol 50 MG TAB PO ONE (15:15)
[2019-10-15 15:38] VITALS: BP 142/70
== END 2019-10-15 15:42 | disposition home or self-care (01) ==
LOC: M ED 14:10
DX: M48.07 Spinal stenosis, lumbosacral region (principal); M54.9 Dorsalgia, unspecified; G89.29 Other chronic pain; I12.9 Hypertensive chronic kidney disease with stage 1 through stage 4 chronic kidney disease, or unspecified chronic kidney disease; N18.9 Chronic kidney disease, unspecified; Z99.2 Dependence on renal dialysis; E11.22 Type 2 diabetes mellitus with diabetic chronic kidney disease; E03.9 Hypothyroidism, unspecified; M31.31 Wegener's granulomatosis with renal involvement; Z79.899 Other long term (current) drug therapy; Z79.82 Long term (current) use of aspirin

== ENCOUNTER → 2021-02-20 | Outpatient (CLI) | payer MEDICARE ==
[~2021-02-20] MED LIST changes: +AMLO1TAB24 PO; -AMLO5TAB6 PO; +ERGO500029; +LOPR1TAB7 PO; +ULTR50TA8 PO; -VITA50005
--- NOTE | 2021-02-20 16:06 | REP ---
INDICATION: SHORTNESS OF BREATH, COUGH. COMPARISON: Multiple the latest 05/31/2019 TECHNIQUE: PA and lateral FINDINGS: The cardiomediastinal silhouette is unchanged. The tip of the MediPort device is unchanged. Since the last exam a few curvilinear densities have developed in the left CP angle. The pleural angles, however, remain sharp. The lung gabriel are otherwise clear. The osseous structures are stable. IMPRESSION: Minimal left lower lobe curvilinear densities subsegmental atelectatic change versus possible early pneumonia. Follow-up is suggested. <Electronically signed by Geovanny Larkin > 02/20/21 1407
== END ==
LOC: M RAD 15:41
PROVIDERS: ATTEND Internal Medicine Nephrology
DX: R05 Cough (principal); R06.02 Shortness of breath; R91.8 Other nonspecific abnormal finding of lung field

== ENCOUNTER 2022-12-04 12:08 | Emergency (ER) | payer MEDICARE ==
[~2022-12-04] VITALS: Ht 154.9 cm; Wt 61.8 kg
[~2022-12-04 12:08] MED LIST changes: -AZAT50TA2 PO; +AZAT50TA37 PO; +LOSA100T46 PO; -LOSA100T50 PO
[2022-12-04 13:07] LABS: BASO # 0.1 10^3/uL (0.0-0.2); BASO % 0.7 % (0.0-1.0); LYMPH # 1.3 10^3/uL (1.5-5.0); LYMPH % 8.3 % (24.0-44.0); MEAN CORPUSCULAR HEMOGLOBIN 31.1 pg (27.0-33.0); MEAN CORPUSCULAR HGB CONC 31.6 g/dl (32.0-36.5); MEAN CORPUSCULAR VOLUME 98.4 fl (80.0-96.0); MONO # 1.3 10^3/uL (0.0-0.8); MONO % 8.3 % (2.0-8.0); NEUTROPHILS # 12.5 10^3/uL (1.5-8.5); NEUTROPHILS % 81.9 % (36.0-66.0); PLATELET COUNT, AUTOMATED 394 10^3/uL (150-450); RED BLOOD COUNT 3.86 10^6/uL (4.00-5.40); WHITE BLOOD COUNT 15.2 10^3/uL (4.0-10.0)
[2022-12-04 13:27] LABS: CALCIUM LEVEL 8.3 MG/DL (8.3-10.6); CREATININE FOR GFR 6.3 MG/DL (0.55-1.30); GLOMERULAR FILTRATION RATE 6.8 (>39)
[2022-12-04 15:33] VITALS: BP 171/74; TEMP 98.6; O2SAT 96
== END 2022-12-04 15:52 | disposition home or self-care (01) ==
LOC: EDBD 12:08 → M ED 12:08
DX: S30.0XXA Contusion of lower back and pelvis, initial encounter (principal); S00.03XA Contusion of scalp, initial encounter; W19.XXXA Unspecified fall, initial encounter; Y92.009 Unspecified place in unspecified non-institutional (private) residence as the place of occurrence of the external cause; M47.816 Spondylosis without myelopathy or radiculopathy, lumbar region; R93.89 Abnormal findings on diagnostic imaging of other specified body structures; N18.6 End stage renal disease; Z99.2 Dependence on renal dialysis; Z79.82 Long term (current) use of aspirin; Z79.899 Other long term (current) drug therapy

== ENCOUNTER 2023-05-16 18:14 | Inpatient (IN) | payer MEDICARE ==
[~2023-05-16] VITALS: Ht 154.9 cm; Wt 60.0 kg
[~2023-05-16 18:14] MED LIST changes: +GLIP5TAB17 PO; -GLIP5TAB8 PO
[2023-05-16] MEDS: ALBUTEROL 90 MCG/ACT 8GM HFA INHALER INH SCH ×3 (18:35→19:15)
[2023-05-16 19:07] LABS: VENOUS BASE EXCESS -11.6 (-2.0-2.0); VENOUS HCO3 15.1 MMOL/L (23.0-27.0); VENOUS O2 SATURATION 67.8 % (60.0-80.0); VENOUS PH 7.229 UNITS (7.330-7.430); VENOUS STANDARD HCO3 14.8 MMOL/L; VENOUS TOTAL CO2 16.2 MMOL/L (24.0-28.0)
[2023-05-16 19:14] LABS: BASO % 0.2 % (0.0-1.0); HEMATOCRIT 28.8 % (36.0-47.0); HEMOGLOBIN 9.3 g/dl (12.0-15.5); LYMPH # 0.5 10^3/uL (1.5-5.0); MEAN CORPUSCULAR HEMOGLOBIN 32.7 pg (27.0-33.0); MEAN CORPUSCULAR HGB CONC 32.3 g/dl (32.0-36.5); MEAN CORPUSCULAR VOLUME 101.4 fl (80.0-96.0); MONO # 0.6 10^3/uL (0.0-0.8); MONO % 6.9 % (2.0-8.0); NEUTROPHILS # 7.8 10^3/uL (1.5-8.5); NEUTROPHILS % 87.5 % (36.0-66.0); PLATELET COUNT, AUTOMATED 198 10^3/uL (150-450); RED BLOOD COUNT 2.84 10^6/uL (4.00-5.40); WHITE BLOOD COUNT 8.9 10^3/uL (4.0-10.0)
[2023-05-16 19:33] LABS: INR 1.21
[2023-05-16 19:42] LABS: ALBUMIN 2.9 G/DL (3.2-5.2); BILIRUBIN,DIRECT 0.4 MG/DL (<0.4); BILIRUBIN,TOTAL 0.7 MG/DL (0.3-1.2); CALCIUM LEVEL 6.1 MG/DL (8.3-10.6); CREATININE FOR GFR 12.14 MG/DL (0.55-1.30); GLOMERULAR FILTRATION RATE 3.2 (>39); POTASSIUM SERUM 4.8 MMOL/L (3.5-5.1); THYROID STIMULATING HORMONE 15.449 uIU/ML (0.55-4.78); THYROXINE (T4) 3.6 UG/DL (4.5-10.9); TOTAL PROTEIN 6.4 G/DL (5.7-8.2)
[2023-05-16] MEDS ORDERED: DEXTROSE 50% 50ML SYRINGE IV STA (21:00)
[2023-05-16] MEDS ORDERED: CALC667T2 PO (21:13)
[2023-05-16] MEDS ORDERED: HYDR-3911 PO (21:13)
[2023-05-16] MEDS ORDERED: DRIS50003 PO (21:13)
[2023-05-16] MEDS ORDERED: hydrALAZINE 20MG/ML 1ML VIAL IV ONE (21:15)
[2023-05-16] MEDS ORDERED: HOME MED LIST COMPLETE! XX SCH (21:15)
[2023-05-17] MEDS ORDERED: ALBUTEROL SULFATE 2.5MG/0.5ML INH NEB SOLN NEB PRN (01:15)
[2023-05-17] MEDS ORDERED: guaiFENesin ER TABLET 600 MG TAB PO ONE (01:55)
[2023-05-17] MEDS ORDERED: ALBUTEROL SULFATE 2.5MG/0.5ML INH NEB SOLN NEB ONE (01:55)
[2023-05-17] MEDS ORDERED: DEXTROMETHORPHAN 60MG/10ML SUSP 90ML BTL(DELSYM) PO PRN (01:55)
[2023-05-17] MEDS: IPRATROPIUM 0.5MG/ALBUTEROL 2.5MG INH SOL UD 3ML (DUONEB) NEB SCH ×4 (02:00→20:44)
[2023-05-17] MEDS ORDERED: methylPREDNISolone 40MG 1ML VIAL IV SCH (02:00)
[2023-05-17] MEDS: LEVOTHYROXINE 25MCG TABLET (0.025MG) PO SCH (06:14)
[2023-05-17 06:34] LABS: BLOOD UREA NITROGEN 112 MG/DL (9-23); CARBON DIOXIDE LEVEL < 10.0 MMOL/L (20-31); CHLORIDE LEVEL 94 MMOL/L (98-107); CREATININE FOR GFR 12.68 MG/DL (0.55-1.30); GLUCOSE, FASTING 177 MG/DL (74-106); POTASSIUM SERUM 4.8 MMOL/L (3.5-5.1); SODIUM LEVEL 131 MMOL/L (136-145)
[2023-05-17] MEDS ORDERED: HEPARIN 1,000UNITS/ML 10ML VIAL (FOR RADIOLOGY & DIALYSIS ONLY) IV PRN (07:20)
[2023-05-17] MEDS ORDERED: HEPARIN 1,000UNITS/ML 10ML VIAL (FOR RADIOLOGY & DIALYSIS ONLY) XX SCH (07:20)
[2023-05-17] MEDS ORDERED: LIDOCAINE 1% SDV 5ML VIAL SC PRN (07:20)
[2023-05-17] MEDS ORDERED: SODIUM CHLORIDE 0.9% 1000ML IV PRN (07:20)
[2023-05-17] MEDS: HEPARIN SOD (PORCINE) 5000UNITS/ML 1ML VIAL/SYRINGE SC SCH ×2 (09:00→20:05)
[2023-05-17 12:28] VITALS: BP 147/65; TEMP 98.1; O2SAT 98
[2023-05-17] MEDS: methylPREDNISolone 40MG 1ML VIAL IV SCH ×2 (13:56→21:08)
[2023-05-17] MEDS: PANTOPRAZOLE 40MG VIAL IV SCH (13:56)
[2023-05-17] MEDS: DOXYCYCLINE HYCLATE 100MG TABLET PO SCH ×2 (13:58→20:04)
[2023-05-17] MEDS: guaiFENesin ER TABLET 600 MG TAB PO SCH (20:04)
[2023-05-17] MEDS: ACETAMINOPHEN TAB 650MG DOSE (2X325MG) PO PRN (21:47)
[2023-05-17 22:00] VITALS: BP 147/67; TEMP 100.8; O2SAT 95
[2023-05-17 22:46] VITALS: TEMP 99
[2023-05-18] MEDS: IPRATROPIUM 0.5MG/ALBUTEROL 2.5MG INH SOL UD 3ML (DUONEB) NEB SCH ×4 (02:44→22:08)
[2023-05-18] MEDS: LEVOTHYROXINE 25MCG TABLET (0.025MG) PO SCH (05:39)
[2023-05-18] MEDS: methylPREDNISolone 40MG 1ML VIAL IV SCH ×3 (05:39→21:30)
[2023-05-18 06:00] VITALS: BP 148/69; TEMP 97.3; O2SAT 99
[2023-05-18] MEDS: DOXYCYCLINE HYCLATE 100MG TABLET PO SCH ×2 (08:59→19:33)
[2023-05-18] MEDS: guaiFENesin ER TABLET 600 MG TAB PO SCH ×2 (08:59→19:33)
[2023-05-18] MEDS: HEPARIN SOD (PORCINE) 5000UNITS/ML 1ML VIAL/SYRINGE SC SCH ×2 (08:59→19:33)
[2023-05-18] MEDS: PANTOPRAZOLE 40MG VIAL IV SCH (09:00)
[2023-05-18] MEDS ORDERED: METOPROLOL SUCC (TopROL XL) 50MG **XL** TAB PO ONE (11:40)
[2023-05-18 14:00] VITALS: BP 160/71; TEMP 98.6; O2SAT 88
[2023-05-18 19:30] VITALS: TEMP 102.2
[2023-05-18] MEDS: ACETAMINOPHEN TAB 650MG DOSE (2X325MG) PO PRN (19:34)
[2023-05-18 22:00] VITALS: BP 163/71; TEMP 98.6; O2SAT 93
[2023-05-19] MEDS: IPRATROPIUM 0.5MG/ALBUTEROL 2.5MG INH SOL UD 3ML (DUONEB) NEB SCH ×4 (01:18→19:21)
[2023-05-19] MEDS: PANTOPRAZOLE 40MG VIAL IV SCH (05:19)
[2023-05-19] MEDS: methylPREDNISolone 40MG 1ML VIAL IV SCH ×2 (05:19→16:59)
[2023-05-19] MEDS: DOXYCYCLINE HYCLATE 100MG TABLET PO SCH ×2 (05:20→19:39)
[2023-05-19] MEDS: guaiFENesin ER TABLET 600 MG TAB PO SCH (05:20)
[2023-05-19] MEDS: LEVOTHYROXINE 25MCG TABLET (0.025MG) PO SCH (05:20)
[2023-05-19] MEDS: HEPARIN SOD (PORCINE) 5000UNITS/ML 1ML VIAL/SYRINGE SC SCH ×2 (05:20→19:40)
[2023-05-19 05:25] VITALS: BP 150/82; TEMP 98.8; O2SAT 92
[2023-05-19] MEDS ORDERED: LIDOCAINE 1% SDV 5ML VIAL SC PRN (06:50)
[2023-05-19] MEDS ORDERED: HEPARIN 1,000UNITS/ML 10ML VIAL (FOR RADIOLOGY & DIALYSIS ONLY) XX SCH (06:50)
[2023-05-19] MEDS ORDERED: SODIUM CHLORIDE 0.9% 1000ML IV PRN (06:50)
[2023-05-19] MEDS ORDERED: HEPARIN 1,000UNITS/ML 10ML VIAL (FOR RADIOLOGY & DIALYSIS ONLY) IV PRN (06:50)
[2023-05-19] MEDS: METOPROLOL TARTRATE 100MG TAB PO SCH ×2 (07:30→19:39)
[2023-05-19] MEDS: BUDESONIDE 0.25 MG/2 ML INHALATION SUSPENSION INH SCH ×2 (08:00→19:21)
[2023-05-19] MEDS ORDERED: METOPROLOL SUCC (TopROL XL) 50MG **XL** TAB PO SCH (09:00)
[2023-05-19] MEDS: PANTOPRAZOLE 40MG TAB (PROTONIX) PO SCH (09:00)
[2023-05-19] MEDS ORDERED: DARBEPOETIN 100MCG/0.5ML *DIALYSIS* SYRINGE IV SCH (10:45)
[2023-05-19 14:00] VITALS: BP 141/63; TEMP 98; O2SAT 90
[2023-05-19 19:24] VITALS: O2SAT 90
[2023-05-19 22:00] VITALS: BP 156/75; TEMP 98.1; O2SAT 96
[2023-05-20] MEDS: IPRATROPIUM 0.5MG/ALBUTEROL 2.5MG INH SOL UD 3ML (DUONEB) NEB SCH ×2 (01:58→08:11)
[2023-05-20] MEDS: methylPREDNISolone 40MG 1ML VIAL IV SCH (04:50)
[2023-05-20] MEDS: LEVOTHYROXINE 25MCG TABLET (0.025MG) PO SCH (04:50)
[2023-05-20 07:12] VITALS: BP 127/58; TEMP 98.8; O2SAT 90
[2023-05-20 07:40] VITALS: BP 141/68; TEMP 98.1; O2SAT 87
[2023-05-20] MEDS: BUDESONIDE 0.25 MG/2 ML INHALATION SUSPENSION INH SCH ×2 (08:11→19:05)
[2023-05-20] MEDS: METOPROLOL TARTRATE 100MG TAB PO SCH ×2 (08:24→21:10)
[2023-05-20] MEDS: PANTOPRAZOLE 40MG TAB (PROTONIX) PO SCH (08:24)
[2023-05-20] MEDS: predniSONE 20 MG TAB PO SCH (08:24)
[2023-05-20] MEDS: HEPARIN SOD (PORCINE) 5000UNITS/ML 1ML VIAL/SYRINGE SC SCH ×2 (08:25→21:09)
[2023-05-20 09:56] VITALS: O2SAT 90
[2023-05-20 10:54] LABS: HEMATOCRIT 30.9 % (36.0-47.0); HEMOGLOBIN 9.8 g/dl (12.0-15.5); MEAN CORPUSCULAR HEMOGLOBIN 32.7 pg (27.0-33.0); MEAN CORPUSCULAR HGB CONC 31.7 g/dl (32.0-36.5); PLATELET COUNT, AUTOMATED 301 10^3/uL (150-450)
[2023-05-20 11:19] LABS: ALBUMIN 2.3 G/DL (3.2-5.2); CALCIUM LEVEL 7.8 MG/DL (8.3-10.6); CREATININE FOR GFR 4.17 MG/DL (0.55-1.30); PHOSPHORUS LEVEL 4.1 MG/DL (2.4-5.1); POTASSIUM SERUM 4.6 MMOL/L (3.5-5.1)
[2023-05-20] MEDS: guaiFENesin ER TABLET 600 MG TAB PO SCH ×2 (11:37→21:08)
[2023-05-20 11:58] LABS: C REACTIVE PROTEIN QUANTITATIV 23.2 MG/DL (<1.0)
[2023-05-20 12:07] LABS: PROCALCITONIN 5.95 ng/ml
[2023-05-20] MEDS: SODIUM CHLORIDE HYPERTONIC 3% 4ML NEB SOL INH SCH ×2 (13:06→19:05)
[2023-05-20] MEDS: ALBUTEROL SULFATE 2.5MG/0.5ML INH NEB SOLN NEB SCH ×2 (13:06→19:05)
[2023-05-20] MEDS: PIPERACILLIN/TAZOBACTAM SOD 4.5 GM in D5W MINI-BAG PLUS 50 ML IV SCH (14:02)
[2023-05-20 14:14] VITALS: BP 137/68; TEMP 98.1; O2SAT 90
[2023-05-20 20:56] VITALS: BP 130/68; TEMP 97.5; O2SAT 92
[2023-05-21] VITALS (8 sets, daily range): BP systolic 98–135; BP diastolic 48–59; TEMP 97.3–98.8; O2SAT 86–96
[2023-05-21] MEDS: SODIUM CHLORIDE HYPERTONIC 3% 4ML NEB SOL INH SCH ×4 (01:08→20:36)
[2023-05-21] MEDS: ALBUTEROL SULFATE 2.5MG/0.5ML INH NEB SOLN NEB SCH ×4 (01:08→20:36)
[2023-05-21] MEDS: PIPERACILLIN/TAZOBACTAM SOD 4.5 GM in D5W MINI-BAG PLUS 50 ML IV SCH ×2 (01:46→13:57)
[2023-05-21] MEDS: LEVOTHYROXINE 25MCG TABLET (0.025MG) PO SCH (06:06)
[2023-05-21] MEDS: predniSONE 20 MG TAB PO SCH (06:06)
[2023-05-21] MEDS: METOPROLOL TARTRATE 100MG TAB PO SCH (06:08)
[2023-05-21] MEDS: PANTOPRAZOLE 40MG TAB (PROTONIX) PO SCH (06:08)
[2023-05-21] MEDS: guaiFENesin ER TABLET 600 MG TAB PO SCH ×2 (06:08→21:03)
[2023-05-21] MEDS: HEPARIN SOD (PORCINE) 5000UNITS/ML 1ML VIAL/SYRINGE SC SCH ×2 (06:09→21:04)
[2023-05-21] MEDS ORDERED: HEPARIN 1,000UNITS/ML 10ML VIAL (FOR RADIOLOGY & DIALYSIS ONLY) IV PRN (06:40)
[2023-05-21] MEDS ORDERED: LIDOCAINE 1% SDV 5ML VIAL SC PRN (06:40)
[2023-05-21] MEDS ORDERED: SODIUM CHLORIDE 0.9% 1000ML IV PRN (06:40)
[2023-05-21] MEDS ORDERED: HEPARIN 1,000UNITS/ML 10ML VIAL (FOR RADIOLOGY & DIALYSIS ONLY) XX SCH (06:40)
[2023-05-21] MEDS: BUDESONIDE 0.25 MG/2 ML INHALATION SUSPENSION INH SCH ×2 (07:44→20:36)
[2023-05-21 08:16] LABS: HEMATOCRIT 31.2 % (36.0-47.0); HEMOGLOBIN 9.8 g/dl (12.0-15.5); MEAN CORPUSCULAR HEMOGLOBIN 32.6 pg (27.0-33.0); MEAN CORPUSCULAR HGB CONC 31.4 g/dl (32.0-36.5); MEAN CORPUSCULAR VOLUME 103.7 fl (80.0-96.0); PLATELET COUNT, AUTOMATED 330 10^3/uL (150-450); RED BLOOD COUNT 3.01 10^6/uL (4.00-5.40); WHITE BLOOD COUNT 13.7 10^3/uL (4.0-10.0)
[2023-05-21 08:44] LABS: C REACTIVE PROTEIN QUANTITATIV 19.3 MG/DL (<1.0)
[2023-05-21 08:46] LABS: ANISOCYTOSIS 1+; ATYPICAL LYMPH 2 % (0-5); HYPOCHROMASIA 1+; MONOCYTES 4 % (0-5); NEUTROPHILS 92 % (28-66); PLATELET ESTIMATE NORMAL (NORMAL)
[2023-05-21 08:47] LABS: TEAR DROP CELLS 1+
[2023-05-21 08:48] LABS: HELMET CELLS 1+
[2023-05-21 08:53] LABS: CALCIUM LEVEL 8.1 MG/DL (8.3-10.6); CREATININE FOR GFR 5.35 MG/DL (0.55-1.30); GLOMERULAR FILTRATION RATE 8.2 (>39); POTASSIUM SERUM 4.5 MMOL/L (3.5-5.1)
[2023-05-21] MEDS: METOPROLOL TART 50 MG TAB PO SCH (21:03)
[2023-05-22] MEDS: PIPERACILLIN/TAZOBACTAM SOD 4.5 GM in D5W MINI-BAG PLUS 50 ML IV SCH ×2 (00:17→13:11)
[2023-05-22] MEDS: SODIUM CHLORIDE HYPERTONIC 3% 4ML NEB SOL INH SCH ×4 (01:36→20:41)
[2023-05-22] MEDS: ALBUTEROL SULFATE 2.5MG/0.5ML INH NEB SOLN NEB SCH ×4 (01:37→20:41)
[2023-05-22 05:10] VITALS: BP 120/54; TEMP 98.2; O2SAT 93
[2023-05-22] MEDS: LEVOTHYROXINE 25MCG TABLET (0.025MG) PO SCH (05:10)
[2023-05-22 06:17] LABS: BASO % 0.2 % (0.0-1.0); HEMATOCRIT 28.8 % (36.0-47.0); HEMOGLOBIN 8.9 g/dl (12.0-15.5); LYMPH # 0.7 10^3/uL (1.5-5.0); LYMPH % 7.6 % (24.0-44.0); MEAN CORPUSCULAR HGB CONC 30.9 g/dl (32.0-36.5); MEAN CORPUSCULAR VOLUME 103.6 fl (80.0-96.0); MONO # 0.5 10^3/uL (0.0-0.8); MONO % 5.4 % (2.0-8.0); NEUTROPHILS # 7.2 10^3/uL (1.5-8.5); PLATELET COUNT, AUTOMATED 309 10^3/uL (150-450); RED BLOOD COUNT 2.78 10^6/uL (4.00-5.40); WHITE BLOOD COUNT 8.7 10^3/uL (4.0-10.0)
[2023-05-22 06:41] LABS: HEMOGLOBIN A1c 5.7 % (4.0-6.0)
[2023-05-22 06:51] LABS: CREATININE FOR GFR 3.3 MG/DL (0.55-1.30); GLOMERULAR FILTRATION RATE 14.4 (>39); POTASSIUM SERUM 3.9 MMOL/L (3.5-5.1)
[2023-05-22] MEDS: BUDESONIDE 0.25 MG/2 ML INHALATION SUSPENSION INH SCH ×2 (07:28→20:41)
[2023-05-22 07:46] LABS: C REACTIVE PROTEIN QUANTITATIV 9.2 MG/DL (<1.0)
[2023-05-22] MEDS: METOPROLOL TART 50 MG TAB PO SCH ×2 (08:15→20:29)
[2023-05-22] MEDS: guaiFENesin ER TABLET 600 MG TAB PO SCH ×2 (08:15→20:29)
[2023-05-22] MEDS: PANTOPRAZOLE 40MG TAB (PROTONIX) PO SCH (08:15)
[2023-05-22] MEDS: predniSONE 20 MG TAB PO SCH (08:15)
[2023-05-22] MEDS: HEPARIN SOD (PORCINE) 5000UNITS/ML 1ML VIAL/SYRINGE SC SCH ×2 (08:15→20:29)
[2023-05-22 14:00] VITALS: BP 124/54; TEMP 98.1; O2SAT 90
[2023-05-22 20:23] VITALS: BP 110/70; TEMP 99; O2SAT 91
[2023-05-22 21:00] VITALS: BP 132/58; TEMP 98.8; O2SAT 90
[2023-05-23] MEDS: SODIUM CHLORIDE HYPERTONIC 3% 4ML NEB SOL INH SCH ×4 (01:01→19:48)
[2023-05-23] MEDS: ALBUTEROL SULFATE 2.5MG/0.5ML INH NEB SOLN NEB SCH ×4 (01:01→19:48)
[2023-05-23] MEDS: PIPERACILLIN/TAZOBACTAM SOD 4.5 GM in D5W MINI-BAG PLUS 50 ML IV SCH ×2 (01:19→12:31)
[2023-05-23 05:40] VITALS: BP 133/58; TEMP 98.1; O2SAT 95
[2023-05-23 05:52] LABS: HEMATOCRIT 27.4 % (36.0-47.0); HEMOGLOBIN 8.5 g/dl (12.0-15.5); MEAN CORPUSCULAR HEMOGLOBIN 31.7 pg (27.0-33.0); MEAN CORPUSCULAR VOLUME 102.2 fl (80.0-96.0); PLATELET COUNT, AUTOMATED 320 10^3/uL (150-450); RED BLOOD COUNT 2.68 10^6/uL (4.00-5.40); WHITE BLOOD COUNT 6.4 10^3/uL (4.0-10.0)
[2023-05-23] MEDS: LEVOTHYROXINE 25MCG TABLET (0.025MG) PO SCH (06:00)
[2023-05-23 06:14] LABS: PROCALCITONIN 2.49 ng/ml
[2023-05-23 06:16] LABS: CALCIUM LEVEL 7.3 MG/DL (8.3-10.6); CREATININE FOR GFR 4.94 MG/DL (0.55-1.30); POTASSIUM SERUM 4.4 MMOL/L (3.5-5.1)
[2023-05-23 06:48] LABS: ATYPICAL LYMPH 6 % (0-5); LYMPHOCYTES 5 % (16-44); MONOCYTES 6 % (0-5); NEUTROPHILS 80 % (28-66)
[2023-05-23 06:49] LABS: PLATELET ESTIMATE NORMAL (NORMAL); POLYCHROMASIA 1+
[2023-05-23] MEDS: BUDESONIDE 0.25 MG/2 ML INHALATION SUSPENSION INH SCH ×2 (07:19→19:48)
[2023-05-23] MEDS ORDERED: GLUCAGON INJ 1MG VIAL SC PRN (07:50)
[2023-05-23] MEDS ORDERED: GLUCOSE 4GM CHEW TABLET PO PRN (07:50)
[2023-05-23] MEDS ORDERED: DEXTROSE 50% 50ML SYRINGE IV PRN (07:50)
[2023-05-23] MEDS: INSULIN LISPRO (NovoLOG) PER UNIT SC SCH ×3 (08:42→17:23)
[2023-05-23] MEDS: predniSONE 20 MG TAB PO SCH (08:42)
[2023-05-23] MEDS: guaiFENesin ER TABLET 600 MG TAB PO SCH ×2 (08:42→21:54)
[2023-05-23] MEDS: PANTOPRAZOLE 40MG TAB (PROTONIX) PO SCH (08:42)
[2023-05-23] MEDS: METOPROLOL TARTRATE 100MG TAB PO SCH ×2 (08:42→21:56)
[2023-05-23] MEDS: HEPARIN SOD (PORCINE) 5000UNITS/ML 1ML VIAL/SYRINGE SC SCH ×2 (08:42→21:54)
[2023-05-23 08:43] VITALS: BP 135/60; O2SAT 92
[2023-05-23] MEDS ORDERED: predniSONE 10MG TAB PO SCH (09:00)
[2023-05-23 14:00] VITALS: BP 135/63; TEMP 97.9; O2SAT 93
[2023-05-23 20:40] VITALS: BP 135/64; TEMP 97.9; O2SAT 92
[2023-05-24] MEDS: PIPERACILLIN/TAZOBACTAM SOD 4.5 GM in D5W MINI-BAG PLUS 50 ML IV SCH ×2 (00:35→13:20)
[2023-05-24] MEDS: SODIUM CHLORIDE HYPERTONIC 3% 4ML NEB SOL INH SCH ×4 (01:41→20:00)
[2023-05-24] MEDS: ALBUTEROL SULFATE 2.5MG/0.5ML INH NEB SOLN NEB SCH ×4 (01:41→21:28)
[2023-05-24 05:23] VITALS: BP 157/69; TEMP 97.9; O2SAT 93
[2023-05-24 06:44] LABS: HEMATOCRIT 28.2 % (36.0-47.0); HEMOGLOBIN 8.9 g/dl (12.0-15.5); MEAN CORPUSCULAR HEMOGLOBIN 31.6 pg (27.0-33.0); MEAN CORPUSCULAR HGB CONC 31.6 g/dl (32.0-36.5); PLATELET COUNT, AUTOMATED 295 10^3/uL (150-450); RED BLOOD COUNT 2.82 10^6/uL (4.00-5.40); WHITE BLOOD COUNT 8.3 10^3/uL (4.0-10.0)
[2023-05-24] MEDS ORDERED: HEPARIN 1,000UNITS/ML 10ML VIAL (FOR RADIOLOGY & DIALYSIS ONLY) IV PRN (06:45)
[2023-05-24] MEDS ORDERED: HEPARIN 1,000UNITS/ML 10ML VIAL (FOR RADIOLOGY & DIALYSIS ONLY) XX SCH (06:45)
[2023-05-24] MEDS ORDERED: SODIUM CHLORIDE 0.9% 1000ML IV PRN (06:45)
[2023-05-24] MEDS ORDERED: LIDOCAINE 1% SDV 5ML VIAL SC PRN (06:45)
[2023-05-24] MEDS: guaiFENesin ER TABLET 600 MG TAB PO SCH ×2 (06:56→19:34)
[2023-05-24] MEDS: PANTOPRAZOLE 40MG TAB (PROTONIX) PO SCH (06:56)
[2023-05-24] MEDS: LEVOTHYROXINE 25MCG TABLET (0.025MG) PO SCH (06:56)
[2023-05-24] MEDS: predniSONE 20 MG TAB PO SCH (06:56)
[2023-05-24] MEDS: HEPARIN SOD (PORCINE) 5000UNITS/ML 1ML VIAL/SYRINGE SC SCH ×2 (06:57→19:34)
[2023-05-24] MEDS: METOPROLOL TARTRATE 100MG TAB PO SCH ×2 (06:57→19:34)
[2023-05-24 07:19] LABS: CALCIUM LEVEL 6.9 MG/DL (8.3-10.6); CREATININE FOR GFR 6.14 MG/DL (0.55-1.30); POTASSIUM SERUM 4.4 MMOL/L (3.5-5.1)
[2023-05-24] MEDS: BUDESONIDE 0.25 MG/2 ML INHALATION SUSPENSION INH SCH ×2 (07:41→21:29)
[2023-05-24 07:56] LABS: LYMPHOCYTES 7 % (16-44); METAMYELOCYTES 1 % (0-0); MONOCYTES 7 % (0-5); NEUTROPHILS 84 % (28-66)
[2023-05-24 07:57] LABS: PLATELET ESTIMATE NORMAL (NORMAL)
[2023-05-24] MEDS: INSULIN LISPRO (NovoLOG) PER UNIT SC SCH ×3 (09:10→17:45)
[2023-05-24] MEDS: LEVEMIR (INSULIN DETEMIR) 1 UNITS/0.01ML SC SCH (09:11)
[2023-05-24 14:00] VITALS: BP 127/52; TEMP 98.1; O2SAT 91
[2023-05-24] MEDS ORDERED: ACETAMINOPHEN TAB 650MG DOSE (2X325MG) PO PRN (17:20)
[2023-05-24 19:34] VITALS: TEMP 97; O2SAT 94
[2023-05-25] MEDS: PIPERACILLIN/TAZOBACTAM SOD 4.5 GM in D5W MINI-BAG PLUS 50 ML IV SCH ×2
[2023-05-25] MEDS: ALBUTEROL SULFATE 2.5MG/0.5ML INH NEB SOLN NEB SCH ×3 (03:33→13:14)
[2023-05-25] MEDS: SODIUM CHLORIDE HYPERTONIC 3% 4ML NEB SOL INH SCH ×3 (03:33→13:14)
[2023-05-25 05:03] VITALS: BP 144/58; TEMP 97.9; O2SAT 95
[2023-05-25] MEDS: LEVOTHYROXINE 25MCG TABLET (0.025MG) PO SCH (05:48)
[2023-05-25 06:33] LABS: HEMATOCRIT 27.2 % (36.0-47.0); HEMOGLOBIN 8.6 g/dl (12.0-15.5); MEAN CORPUSCULAR HEMOGLOBIN 31.9 pg (27.0-33.0); MEAN CORPUSCULAR HGB CONC 31.6 g/dl (32.0-36.5); MEAN CORPUSCULAR VOLUME 100.7 fl (80.0-96.0); PLATELET COUNT, AUTOMATED 282 10^3/uL (150-450); WHITE BLOOD COUNT 7.9 10^3/uL (4.0-10.0)
[2023-05-25 07:03] LABS: CALCIUM LEVEL 7.3 MG/DL (8.3-10.6); CREATININE FOR GFR 4.05 MG/DL (0.55-1.30); GLOMERULAR FILTRATION RATE 11.3 (>39); POTASSIUM SERUM 3.8 MMOL/L (3.5-5.1)
[2023-05-25] MEDS: INSULIN LISPRO (NovoLOG) PER UNIT SC SCH ×2 (07:30→12:35)
[2023-05-25 07:36] LABS: ATYPICAL LYMPH 6 % (0-5); LYMPHOCYTES 7 % (16-44); MONOCYTES 5 % (0-5); NEUTROPHILS 79 % (28-66)
[2023-05-25 07:37] LABS: PLATELET ESTIMATE NORMAL (NORMAL)
[2023-05-25] MEDS: BUDESONIDE 0.25 MG/2 ML INHALATION SUSPENSION INH SCH (07:37)
[2023-05-25 07:38] LABS: POLYCHROMASIA 1+; SCHISTOCYTES 1+
[2023-05-25] MEDS ORDERED: AUGMENTIN 500MG TAB PO SCH (09:00)
[2023-05-25] MEDS: HEPARIN SOD (PORCINE) 5000UNITS/ML 1ML VIAL/SYRINGE SC SCH (09:16)
[2023-05-25] MEDS: predniSONE 20 MG TAB PO SCH (09:16)
[2023-05-25] MEDS: LEVEMIR (INSULIN DETEMIR) 1 UNITS/0.01ML SC SCH (09:16)
[2023-05-25] MEDS: guaiFENesin ER TABLET 600 MG TAB PO SCH (09:16)
[2023-05-25] MEDS: PANTOPRAZOLE 40MG TAB (PROTONIX) PO SCH (09:17)
[2023-05-25 09:19] VITALS: BP 120/45
[2023-05-25] MEDS: METOPROLOL TARTRATE 100MG TAB PO SCH (09:19)
[2023-05-25] MEDS ORDERED: AMOX500T2 PO (11:52)
[2023-05-25] MEDS ORDERED: MUCI600T31 PO (11:52)
[2023-05-25] MEDS ORDERED: SYNT25TA PO (11:52)
[2023-05-25] MEDS ORDERED: PRED10TA2 PO (11:52)
[2023-05-25] MEDS ORDERED: VENTAER INH (11:52)
== END 2023-05-25 15:07 | disposition home or self-care (01) | DRG 193 ==
LOC: M ED 18:14 → M ED INP 18:15 → ENRESERV 05-17 07:46 → M MSPAV 05-17 12:28 → OBSVTOIN 05-20 12:38
PROVIDERS: ADMIT Internal Medicine; ATTEND Internal Medicine Nephrology
PROC: 5A1D90Z Performance of Urinary Filtration, Continuous, Greater than 18 hours Per Day (ICD-10-PCS; principal; 2023-05-21)
DX: J12.9 Viral pneumonia, unspecified (principal); N18.6 End stage renal disease; E87.20 Acidosis, unspecified; E87.1 Hypo-osmolality and hyponatremia; I12.0 Hypertensive chronic kidney disease with stage 5 chronic kidney disease or end stage renal disease; N25.81 Secondary hyperparathyroidism of renal origin; M31.31 Wegener's granulomatosis with renal involvement; E11.649 Type 2 diabetes mellitus with hypoglycemia without coma; D63.1 Anemia in chronic kidney disease; J45.909 Unspecified asthma, uncomplicated; E03.9 Hypothyroidism, unspecified; J47.9 Bronchiectasis, uncomplicated; J10.1 Influenza due to other identified influenza virus with other respiratory manifestations; E11.22 Type 2 diabetes mellitus with diabetic chronic kidney disease; Z86.73 Personal history of transient ischemic attack (TIA), and cerebral infarction without residual deficits; E83.39 Other disorders of phosphorus metabolism; K64.8 Other hemorrhoids; Z79.899 Other long term (current) drug therapy; Z66 Do not resuscitate; R19.7 Diarrhea, unspecified

== ENCOUNTER 2023-12-27 11:33 | Inpatient (IN) | payer MEDICARE ==
[~2023-12-27] VITALS: Ht 165.1 cm; Wt 61.5 kg
[~2023-12-27 11:33] MED LIST changes: +AMOX500T2 PO; +CALC667T2 PO; -HYDR-3910 PO; -HYDR-3911; +HYDR25TA87 PO; +HYDR50TA46; +HYDR50TA46 PO; +MUCI600T31 PO
[2023-12-27 12:54] LABS: HEMATOCRIT 33.5 % (36.0-47.0); HEMOGLOBIN 11.2 g/dl (12.0-15.5); LYMPH # 0.4 10^3/uL (1.5-5.0); LYMPH % 4.2 % (24.0-44.0); MEAN CORPUSCULAR HGB CONC 33.4 g/dl (32.0-36.5); MEAN CORPUSCULAR VOLUME 95.7 fl (80.0-96.0); MONO # 0.4 10^3/uL (0.0-0.8); MONO % 4.2 % (2.0-8.0); NEUTROPHILS # 9.6 10^3/uL (1.5-8.5); NEUTROPHILS % 91.1 % (36.0-66.0); PLATELET COUNT, AUTOMATED 284 10^3/uL (150-450); WHITE BLOOD COUNT 10.6 10^3/uL (4.0-10.0)
[2023-12-27 12:59] LABS: VENOUS BASE EXCESS 4.2 (-2.0-2.0); VENOUS HCO3 29.4 MMOL/L (23.0-27.0); VENOUS O2 SATURATION 58.9 % (60.0-80.0); VENOUS PARTIAL PRESSURE CO2 46.3 mmHg (38.0-50.0); VENOUS STANDARD HCO3 27.5 MMOL/L; VENOUS TOTAL CO2 30.8 MMOL/L (24.0-28.0)
[2023-12-27 13:28] LABS: ALBUMIN 3.6 G/DL (3.2-5.2); ALKALINE PHOSPHATASE 93 U/L (46-116); ALT/SGPT < 9 U/L (7.0-40); AST/SGOT 14 U/L (<34); BILIRUBIN,DIRECT 0.3 MG/DL (<0.4); BILIRUBIN,TOTAL 0.6 MG/DL (0.3-1.2); BLOOD UREA NITROGEN 37 MG/DL (9-23); CALCIUM LEVEL 8.2 MG/DL (8.3-10.6); CARBON DIOXIDE LEVEL 29 MMOL/L (20-31); CHLORIDE LEVEL 96 MMOL/L (98-107); CREATININE FOR GFR 4.79 MG/DL (0.55-1.30); GLOMERULAR FILTRATION RATE 9.3 (>32); GLUCOSE, FASTING 120 MG/DL (74-106); POTASSIUM SERUM 3.8 MMOL/L (3.5-5.1); SODIUM LEVEL 141 MMOL/L (136-145); TOTAL PROTEIN 7.2 G/DL (5.7-8.2)
[2023-12-27 13:29] LABS: THYROID STIMULATING HORMONE 29.445 uIU/ML (0.55-4.78)
[2023-12-27 13:30] LABS: OSMOLALITY SERUM 312 MOSM/KG (280-301)
[2023-12-27] MEDS: cefTRIAXone SOD 1 GM in D5W MINI-BAG PLUS 50 ML IV ONE (14:14)
[2023-12-27] MEDS ORDERED: D-101000 PO (15:34)
[2023-12-27] MEDS ORDERED: HOME MED LIST COMPLETE! XX SCH (15:40)
[2023-12-27] MEDS ORDERED: ACETAMINOPHEN TAB 650MG DOSE (2X325MG) PO PRN (16:00)
[2023-12-27] MEDS ORDERED: ACETAMINOPHEN 500 MG TAB PO PRN (17:40)
[2023-12-27] MEDS: CALCIUM ACETATE 667MG GELCAP PO SCH (18:49)
[2023-12-27] MEDS: METOPROLOL TARTRATE 100MG TAB PO SCH (21:15)
[2023-12-27 23:05] VITALS: BP 138/68; TEMP 97.9; O2SAT 97
[2023-12-28 04:00] VITALS: BP 139/61; TEMP 97.5; O2SAT 95
[2023-12-28] MEDS: HEPARIN SOD (PORCINE) 5000UNITS/ML 1ML VIAL/SYRINGE SC SCH (05:33)
[2023-12-28 05:55] LABS: HEMATOCRIT 31.2 % (36.0-47.0); HEMOGLOBIN 9.8 g/dl (12.0-15.5); LYMPH # 1.1 10^3/uL (1.5-5.0); LYMPH % 16.5 % (24.0-44.0); MEAN CORPUSCULAR HEMOGLOBIN 30.8 pg (27.0-33.0); MEAN CORPUSCULAR HGB CONC 31.4 g/dl (32.0-36.5); MEAN CORPUSCULAR VOLUME 98.1 fl (80.0-96.0); MONO # 0.6 10^3/uL (0.0-0.8); MONO % 9.1 % (2.0-8.0); NEUTROPHILS # 4.7 10^3/uL (1.5-8.5); NEUTROPHILS % 73.8 % (36.0-66.0); PLATELET COUNT, AUTOMATED 262 10^3/uL (150-450); RED BLOOD COUNT 3.18 10^6/uL (4.00-5.40); WHITE BLOOD COUNT 6.4 10^3/uL (4.0-10.0)
[2023-12-28 06:19] LABS: FREE T4 0.57 NG/DL (0.89-1.76)
[2023-12-28 06:23] LABS: PROCALCITONIN 0.61 ng/ml
[2023-12-28 06:24] LABS: ALBUMIN 2.9 G/DL (3.2-5.2); ALKALINE PHOSPHATASE 72 U/L (46-116); ALT/SGPT < 9 U/L (7.0-40); AST/SGOT 8 U/L (<34); BILIRUBIN,TOTAL 0.3 MG/DL (0.3-1.2); BLOOD UREA NITROGEN 53 MG/DL (9-23); CALCIUM LEVEL 8.3 MG/DL (8.3-10.6); CARBON DIOXIDE LEVEL 30 MMOL/L (20-31); CHLORIDE LEVEL 99 MMOL/L (98-107); GLOMERULAR FILTRATION RATE 6.3 (>32); GLUCOSE, FASTING 71 MG/DL (74-106); MAGNESIUM LEVEL 2.1 MG/DL (1.8-2.4); PHOSPHORUS LEVEL 6.8 MG/DL (2.4-5.1); POTASSIUM SERUM 4.4 MMOL/L (3.5-5.1); SODIUM LEVEL 139 MMOL/L (136-145)
[2023-12-28] MEDS: LIDOCAINE 5% (LIDODERM) PATCH TD SCH (09:04)
[2023-12-28] MEDS: LEVOTHYROXINE 25MCG TABLET (0.025MG) PO SCH (11:14)
[2023-12-28 12:00] VITALS: BP 146/59; TEMP 97.7; O2SAT 98
[2023-12-28] MEDS: PATIROMER SORBITEX CALCIUM 8.4 GM POWDER PACKET (VELTASSA) PO SCH (12:44)
[2023-12-28] MEDS: cefTRIAXone SOD 1 GM in D5W MINI-BAG PLUS 50 ML IV SCH (13:18)
[2023-12-28 20:00] VITALS: BP 172/61; TEMP 97.2; O2SAT 96
[2023-12-29 04:00] VITALS: BP 167/59; TEMP 97.3; O2SAT 94
[2023-12-29 05:35] VITALS: BP 167/59
[2023-12-29] MEDS ORDERED: LIDOCAINE 1% SDV 5ML VIAL SC PRN (06:00)
[2023-12-29] MEDS ORDERED: SODIUM CHLORIDE 0.9% 1000ML IV PRN (06:00)
[2023-12-29] MEDS ORDERED: HEPARIN 1,000UNITS/ML 10ML VIAL (FOR RADIOLOGY & DIALYSIS ONLY) IV PRN (06:00)
[2023-12-29] MEDS ORDERED: PATIROMER SORBITEX CALCIUM 8.4 GM POWDER PACKET (VELTASSA) PO SCH (08:00)
[2023-12-29 08:14] LABS: HEMATOCRIT 29.2 % (36.0-47.0); HEMOGLOBIN 9.5 g/dl (12.0-15.5); LYMPH # 1.2 10^3/uL (1.5-5.0); LYMPH % 22.3 % (24.0-44.0); MEAN CORPUSCULAR HEMOGLOBIN 31.7 pg (27.0-33.0); MEAN CORPUSCULAR HGB CONC 32.5 g/dl (32.0-36.5); MEAN CORPUSCULAR VOLUME 97.3 fl (80.0-96.0); MONO # 0.6 10^3/uL (0.0-0.8); MONO % 10.4 % (2.0-8.0); NEUTROPHILS # 3.7 10^3/uL (1.5-8.5); NEUTROPHILS % 66.4 % (36.0-66.0); PLATELET COUNT, AUTOMATED 255 10^3/uL (150-450); WHITE BLOOD COUNT 5.6 10^3/uL (4.0-10.0)
[2023-12-29 08:44] LABS: ALBUMIN 2.8 G/DL (3.2-5.2); CALCIUM LEVEL 7.8 MG/DL (8.3-10.6); GLOMERULAR FILTRATION RATE 5.2 (>32); MAGNESIUM LEVEL 2.1 MG/DL (1.8-2.4); PHOSPHORUS LEVEL 7.4 MG/DL (2.4-5.1); POTASSIUM SERUM 4.4 MMOL/L (3.5-5.1)
[2023-12-29] MEDS: HEPARIN 1,000UNITS/ML 10ML VIAL (FOR RADIOLOGY & DIALYSIS ONLY) XX SCH (11:32)
[2023-12-29 12:55] VITALS: BP 136/50; TEMP 97.5; O2SAT 96
[2023-12-29] MEDS ORDERED: CEFD300CAP PO (13:50)
[2023-12-29] MEDS ORDERED: LEVO25TA5 PO (13:50)
[2023-12-29] MEDS ORDERED: CEFDINIR 300 MG CAP (OMNICEF) PO SCH (16:00)
== END 2023-12-29 15:25 | disposition home or self-care (01) | DRG 689 ==
LOC: M ED 11:33 → M ED INP 15:22 → M MSPAV 23:05
PROVIDERS: ADMIT Internal Medicine; ATTEND Internal Medicine
PROC: 5A1D70Z Performance of Urinary Filtration, Intermittent, Less than 6 Hours Per Day (ICD-10-PCS; principal; 2023-12-29)
DX: N39.0 Urinary tract infection, site not specified (principal); N18.6 End stage renal disease; I12.0 Hypertensive chronic kidney disease with stage 5 chronic kidney disease or end stage renal disease; E87.20 Acidosis, unspecified; M31.31 Wegener's granulomatosis with renal involvement; N25.81 Secondary hyperparathyroidism of renal origin; B96.20 Unspecified Escherichia coli [E. coli] as the cause of diseases classified elsewhere; Z66 Do not resuscitate; E83.39 Other disorders of phosphorus metabolism; E03.9 Hypothyroidism, unspecified; D63.1 Anemia in chronic kidney disease; M54.9 Dorsalgia, unspecified; G89.29 Other chronic pain; Z79.899 Other long term (current) drug therapy; Z99.2 Dependence on renal dialysis; Z86.73 Personal history of transient ischemic attack (TIA), and cerebral infarction without residual deficits; Z90.79 Acquired absence of other genital organ(s)

== ENCOUNTER 2024-01-25 01:55 | Emergency (ER) | payer MEDICARE ==
[~2024-01-25] VITALS: Ht 154.9 cm; Wt 58.3 kg
[2024-01-25 01:55] VITALS: TEMP 96.5
[~2024-01-25 01:55] MED LIST changes: +CEFD300CAP PO; +D-101000 PO; +LEVO25TA5 PO
[2024-01-25] MEDS: METOPROLOL TARTRATE 100MG TAB PO ONE (07:00)
[2024-01-25] MEDS: **hydrALAZINE** 50 MG TAB PO ONE (07:00)
[2024-01-25] MEDS: ACETAMINOPHEN 500 MG TAB PO ONE (07:00)
[2024-01-25 07:10] VITALS: O2SAT 96
[2024-01-25 07:15] VITALS: BP 162/73
[2024-01-25] MEDS ORDERED: OXYC-517 PO (08:35)
== END 2024-01-25 08:54 | disposition home or self-care (01) ==
LOC: M ED 01:55
DX: S42.352A Displaced comminuted fracture of shaft of humerus, left arm, initial encounter for closed fracture (principal); W06.XXXA Fall from bed, initial encounter; Y92.009 Unspecified place in unspecified non-institutional (private) residence as the place of occurrence of the external cause; Y93.89 Activity, other specified; Y99.9 Unspecified external cause status; E11.9 Type 2 diabetes mellitus without complications; E03.9 Hypothyroidism, unspecified; I12.0 Hypertensive chronic kidney disease with stage 5 chronic kidney disease or end stage renal disease; Z99.2 Dependence on renal dialysis; Z79.899 Other long term (current) drug therapy

== ENCOUNTER → 2024-02-02 | Outpatient (CLI) | payer MEDICARE ==
[~2024-02-02] MED LIST changes: +OXYC-517 PO
== END ==
LOC: M SOG 08:06
PROVIDERS: ATTEND Physician Assistant
DX: S42.352A Displaced comminuted fracture of shaft of humerus, left arm, initial encounter for closed fracture (principal); Y93.9 Activity, unspecified; Y92.9 Unspecified place or not applicable

== ENCOUNTER → 2024-02-23 | Outpatient (CLI) | payer MEDICARE | LOC: M SOG 07:24 | PROVIDERS: ATTEND Physician Assistant | DX: S42.212K Unspecified displaced fracture of surgical neck of left humerus, subsequent encounter for fracture with nonunion (principal) ==

== ENCOUNTER → 2024-03-21 | Outpatient (CLI) | payer MEDICARE ==
[~2024-03-21] MED LIST changes: +GLIP10TA15 PO; -GLIP10TA6 PO
== END ==
LOC: M SOG 07:47
PROVIDERS: ATTEND Physician Assistant
DX: S42.212D Unspecified displaced fracture of surgical neck of left humerus, subsequent encounter for fracture with routine healing (principal)

== ENCOUNTER → 2024-05-02 | Outpatient (CLI) | payer MEDICARE | LOC: M SOG 07:51 | PROVIDERS: ATTEND Physician Assistant | DX: S42.212A Unspecified displaced fracture of surgical neck of left humerus, initial encounter for closed fracture (principal); Z53.9 Procedure and treatment not carried out, unspecified reason ==

== ENCOUNTER 2024-05-15 15:19 | Inpatient (IN) | payer MEDICARE ==
[~2024-05-15] VITALS: Ht 154.9 cm; Wt 69.4 kg
[2024-05-15] MEDS ORDERED: ISOVUE-370 76% 100ML VIAL As Ordered ONE (15:33)
[2024-05-15 15:46] LABS: BASO # 0.1 10^3/uL (0.0-0.2); BASO % 1.3 % (0.0-1.0); HEMATOCRIT 40.6 % (36.0-47.0); HEMOGLOBIN 12.9 g/dl (12.0-15.5); LYMPH # 0.9 10^3/uL (1.5-5.0); LYMPH % 13.4 % (24.0-44.0); MEAN CORPUSCULAR HEMOGLOBIN 31.9 pg (27.0-33.0); MEAN CORPUSCULAR HGB CONC 31.8 g/dl (32.0-36.5); MEAN CORPUSCULAR VOLUME 100.5 fl (80.0-96.0); MONO # 0.6 10^3/uL (0.0-0.8); MONO % 9.3 % (2.0-8.0); NEUTROPHILS # 5.2 10^3/uL (1.5-8.5); NEUTROPHILS % 75.3 % (36.0-66.0); PLATELET COUNT, AUTOMATED 297 10^3/uL (150-450); RED BLOOD COUNT 4.04 10^6/uL (4.00-5.40); WHITE BLOOD COUNT 6.9 10^3/uL (4.0-10.0)
[2024-05-15 15:59] LABS: INR 0.95; PARTIAL THROMBOPLASTIN TIME 27.5 SECONDS (24.8-34.2); PROTHROMBIN TIME 12.9 SECONDS (12.5-14.5)
[2024-05-15 16:13] LABS: CALCIUM LEVEL 9.5 MG/DL (8.3-10.6); CREATININE FOR GFR 3.57 MG/DL (0.55-1.30); GLOMERULAR FILTRATION RATE 13.1 (>32); POTASSIUM SERUM 4.3 MMOL/L (3.5-5.1)
[2024-05-15] MEDS ORDERED: LOSA100T46 PO (18:16)
[2024-05-15] MEDS ORDERED: ERGO500029 PO (18:17)
[2024-05-15] MEDS ORDERED: HOME MED LIST COMPLETE! XX SCH (18:20)
[2024-05-15 19:31] LABS: FREE T4 0.81 NG/DL (0.89-1.76); THYROID STIMULATING HORMONE 16.676 uIU/ML (0.55-4.78)
[2024-05-15 19:51] LABS: HEMOGLOBIN A1c 4.8 % (4.0-6.0)
[2024-05-15 20:30] VITALS: BP 182/78; TEMP 97.7; O2SAT 97
[2024-05-15 20:52] VITALS: BP 182/78; TEMP 97.7; O2SAT 97
[2024-05-15] MEDS: ATORVASTATIN 20 MG TAB PO SCH (22:38)
[2024-05-15 23:14] VITALS: BP 170/76; TEMP 97.5; O2SAT 96
[2024-05-16] VITALS (18 sets, daily range): BP systolic 145–172; BP diastolic 72–91; TEMP 97.2–98.3; O2SAT 92–98
[2024-05-16 05:34] LABS: CALCIUM LEVEL 8.6 MG/DL (8.3-10.6); CHOLESTEROL RISK RATIO 5.4 (<5); CREATININE FOR GFR 4.7 MG/DL (0.55-1.30); GLOMERULAR FILTRATION RATE 9.5 (>32); HDL CHOLESTEROL 30.5 MG/DL (>40); LDL CHOLESTEROL 113.1 MG/DL (<100); NON-HDL-C 134.5 MG/DL; POTASSIUM SERUM 4.6 MMOL/L (3.5-5.1)
[2024-05-16] MEDS: LEVOTHYROXINE 25MCG TABLET (0.025MG) PO SCH (07:51)
[2024-05-16] MEDS: CLOPIDOGREL 75 MG TAB PO SCH (09:47)
[2024-05-16] MEDS: ASPIRIN 81MG ENTERIC TABLET PO SCH (09:47)
[2024-05-16 11:28] LABS: HEPATITIS B SURFACE ANTIBODY NEGATIVE (POSITIVE)
[2024-05-16 11:39] LABS: HEPATITIS B SURFACE ANTIGEN NEGATIVE (NEGATIVE)
[2024-05-16 12:00] LABS: HEPATITIS C VIRUS ABY INDEX < 0.02 INDEX (<0.8)
[2024-05-16 12:01] LABS: HEPATITIS B CORE ANTIBODY IGM NEGATIVE (NEGATIVE)
[2024-05-16] MEDS: CALCIUM ACETATE 667MG GELCAP PO SCH (16:22)
[2024-05-16] MEDS: HEPARIN SOD (PORCINE) 5000UNITS/ML 1ML VIAL/SYRINGE SQ SCH (20:41)
[2024-05-17 03:25] VITALS: BP 176/78; TEMP 97.6; O2SAT 96
[2024-05-17] MEDS ORDERED: HEPARIN 1,000UNITS/ML 10ML VIAL (FOR RADIOLOGY & DIALYSIS ONLY) IV PRN (06:00)
[2024-05-17] MEDS ORDERED: LIDOCAINE 1% SDV 5ML VIAL SC PRN (06:00)
[2024-05-17] MEDS ORDERED: SODIUM CHLORIDE 0.9% 1000 ML IV PRN (06:00)
[2024-05-17 08:01] VITALS: BP 152/70; TEMP 98.3; O2SAT 97
[2024-05-17] MEDS ORDERED: LEVO50TA5 PO (11:01)
[2024-05-17] MEDS ORDERED: ATOR40TA75 PO (11:01)
[2024-05-17] MEDS ORDERED: CLOP75TA2 PO (11:01)
[2024-05-17] MEDS ORDERED: ASPI81TAEC PO (11:01)
[2024-05-17] MEDS: HEPARIN 1,000UNITS/ML 10ML VIAL (FOR RADIOLOGY & DIALYSIS ONLY) XX SCH (11:26)
[2024-05-17 12:27] VITALS: BP 152/69; TEMP 98.6; O2SAT 97
[2024-05-17] MEDS: LEVOTHYROXINE 25MCG TABLET (0.025MG) PO ONE (12:36)
[2024-05-17 13:17] VITALS: BP 159/65
[2024-05-17] MEDS: **hydrALAZINE** 50 MG TAB PO SCH (13:17)
[2024-05-17] MEDS: LOSARTAN 50MG TABLET PO SCH (13:17)
[2024-05-17] MEDS: METOPROLOL TARTRATE 100MG TAB PO SCH (13:21)
[2024-05-18] MEDS ORDERED: LEVOTHYROXINE 50MCG TABLET (0.05MG) PO SCH (06:00)
[2024-05-29] MEDS ORDERED: VITAMIN D 50,000 UNITS CAPSULE (ERGOCALCIFEROL 1.25MG) PO SCH (09:00)
== END 2024-05-17 14:46 | disposition home or self-care (01) | DRG 64 ==
LOC: M ED 15:19 → M ED INP 15:20 → M PCU 20:52 → OBSVTOIN 05-16 16:50 → UNDODISOB 05-17 14:46
PROVIDERS: ADMIT Student in an Organized Health Care Education/Training Program; ATTEND Student in an Organized Health Care Education/Training Program
PROC: B246ZZZ Ultrasonography of Right and Left Heart (ICD-10-PCS; principal; 2024-05-16)
PROC: 5A1D70Z Performance of Urinary Filtration, Intermittent, Less than 6 Hours Per Day (ICD-10-PCS; 2024-05-17)
DX: I63.9 Cerebral infarction, unspecified (principal); N18.6 End stage renal disease; I69.351 Hemiplegia and hemiparesis following cerebral infarction affecting right dominant side; M31.31 Wegener's granulomatosis with renal involvement; Z66 Do not resuscitate; I12.0 Hypertensive chronic kidney disease with stage 5 chronic kidney disease or end stage renal disease; E78.5 Hyperlipidemia, unspecified; I65.23 Occlusion and stenosis of bilateral carotid arteries; R47.81 Slurred speech; E03.9 Hypothyroidism, unspecified; D63.1 Anemia in chronic kidney disease; Z99.2 Dependence on renal dialysis; Z90.49 Acquired absence of other specified parts of digestive tract; Z79.82 Long term (current) use of aspirin; Z79.890 Hormone replacement therapy; Z79.899 Other long term (current) drug therapy

== ENCOUNTER → 2024-05-23 | Outpatient (CLI) | payer MEDICARE ==
[~2024-05-23] MED LIST changes: +ASPI81TAEC PO; +ATOR40TA75 PO; +CLOP75TA2 PO; +ERGO500029 PO; +LEVO50TA5 PO
== END ==
LOC: M SOG 07:56
PROVIDERS: ATTEND Physician Assistant
DX: S42.212A Unspecified displaced fracture of surgical neck of left humerus, initial encounter for closed fracture (principal); X58.XXXA Exposure to other specified factors, initial encounter; Y92.9 Unspecified place or not applicable; Y93.9 Activity, unspecified; Y99.9 Unspecified external cause status

== ENCOUNTER → 2024-06-08 | Outpatient (REF) | payer MEDICARE ==
[~2024-06-08] MED LIST changes: -ADV500INH INH; +ADVA1AER10 INH
[2024-06-08 14:22] LABS: ALBUMIN 3.6 G/DL (3.2-5.2); BILIRUBIN,TOTAL 0.2 MG/DL (0.3-1.2); CALCIUM LEVEL 7.9 MG/DL (8.3-10.6); CHOLESTEROL RISK RATIO 3.65 (<5); CREATININE FOR GFR 6.07 MG/DL (0.55-1.30); GLOMERULAR FILTRATION RATE 7.1 (>32); HDL CHOLESTEROL 37.2 MG/DL (>40); NON-HDL-C 98.8 MG/DL; POTASSIUM SERUM 4.3 MMOL/L (3.5-5.1); TOTAL PROTEIN 7.3 G/DL (5.7-8.2)
[2024-06-08 14:24] LABS: FREE T4 1.02 NG/DL (0.89-1.76); THYROID STIMULATING HORMONE 5.357 uIU/ML (0.55-4.78)
[2024-06-08 14:27] LABS: HEMATOCRIT 36.7 % (36.0-47.0); HEMOGLOBIN 11.4 g/dl (12.0-15.5); MEAN CORPUSCULAR HEMOGLOBIN 30.8 pg (27.0-33.0); MEAN CORPUSCULAR HGB CONC 31.1 g/dl (32.0-36.5); MEAN CORPUSCULAR VOLUME 99.2 fl (80.0-96.0); PLATELET COUNT, AUTOMATED 343 10^3/uL (150-450); WHITE BLOOD COUNT 8.5 10^3/uL (4.0-10.0)
[2024-06-08 16:51] LABS: HEMOGLOBIN A1c 4.9 % (4.0-6.0)
== END ==
LOC: M LAB REF 12:53
PROVIDERS: ATTEND Student in an Organized Health Care Education/Training Program
DX: E03.9 Hypothyroidism, unspecified (principal); E78.5 Hyperlipidemia, unspecified; N18.6 End stage renal disease; Z99.2 Dependence on renal dialysis; Z79.899 Other long term (current) drug therapy

== ENCOUNTER → 2024-07-04 | Outpatient (CLI) | payer MEDICARE | LOC: M SOG 08:03 | PROVIDERS: ATTEND Physician Assistant | DX: S42.212A Unspecified displaced fracture of surgical neck of left humerus, initial encounter for closed fracture (principal); Z53.9 Procedure and treatment not carried out, unspecified reason ==

== ENCOUNTER 2024-07-10 11:47 | Inpatient (IN) | payer MEDICARE ==
[~2024-07-10] VITALS: Ht 154.9 cm; Wt 56.4 kg
[2024-07-10 12:47] LABS: BASO % 0.5 % (0.0-1.0); EOS % 0.6 % (0.0-3.0); HEMATOCRIT 41.9 % (36.0-47.0); HEMOGLOBIN 13.1 g/dl (12.0-15.5); LYMPH # 0.9 10^3/uL (1.5-5.0); LYMPH % 13.9 % (24.0-44.0); MEAN CORPUSCULAR HGB CONC 31.3 g/dl (32.0-36.5); MEAN CORPUSCULAR VOLUME 96.1 fl (80.0-96.0); MONO # 0.4 10^3/uL (0.0-0.8); NEUTROPHILS # 5.2 10^3/uL (1.5-8.5); NEUTROPHILS % 78.5 % (36.0-66.0); PLATELET COUNT, AUTOMATED 401 10^3/uL (150-450); RED BLOOD COUNT 4.36 10^6/uL (4.00-5.40); WHITE BLOOD COUNT 6.6 10^3/uL (4.0-10.0)
[2024-07-10 13:47] LABS: ALBUMIN 3.7 G/DL (3.2-5.2); ALKALINE PHOSPHATASE 83 U/L (35-104); ALT/SGPT 10 U/L (7.0-40); AST/SGOT 24 U/L (<34); BILIRUBIN,DIRECT 0.2 MG/DL (<0.4); BILIRUBIN,TOTAL 0.5 MG/DL (0.3-1.2); BLOOD UREA NITROGEN 20 MG/DL (9-23); CALCIUM LEVEL 8.1 MG/DL (8.3-10.6); CARBON DIOXIDE LEVEL 34 MMOL/L (20-31); CHLORIDE LEVEL 93 MMOL/L (98-107); CREATININE FOR GFR 3.21 MG/DL (0.55-1.30); GLOMERULAR FILTRATION RATE 14.8 (>32); GLUCOSE, FASTING 99 MG/DL (74-106); POTASSIUM SERUM 3.6 MMOL/L (3.5-5.1); SODIUM LEVEL 142 MMOL/L (136-145); TOTAL PROTEIN 8.1 G/DL (5.7-8.2)
[2024-07-10 14:53] LABS: CK-MB VALUE MASS < 1.0 NG/ML (<3.6)
[2024-07-10 15:01] LABS: CPK CREATINE PHOSPHOKINASE 52 U/L (34-145); MB/CK RELATIVE INDEX 1.92 (< OR =4)
[2024-07-10 15:42] LABS: CK-MB VALUE MASS < 1.0 NG/ML (<3.6)
[2024-07-10 15:46] LABS: CPK CREATINE PHOSPHOKINASE 48 U/L (34-145); MB/CK RELATIVE INDEX 2.08 (< OR =4)
[2024-07-10 15:50] LABS: CK-MB VALUE MASS < 1.0 NG/ML (<3.6); CPK CREATINE PHOSPHOKINASE 57 U/L (34-145); MB/CK RELATIVE INDEX 1.75 (< OR =4)
[2024-07-10] MEDS ORDERED: OSELTAMIVIR PHOSPHATE 75 MG CAP PO ONE (17:35)
[2024-07-10] MEDS: CEFEPIME HCL 2 GM in DEXTROSE 5% (D5W) ADV/MINI-BAG 50 ML IV ONE (17:56)
[2024-07-10] MEDS: OSELTAMIVIR PHOSPHATE 30MG CAPSULE PO ONE (18:06)
[2024-07-10] MEDS ORDERED: LEVO50TA5 PO (19:07)
[2024-07-10] MEDS ORDERED: ATOR40TA75 PO (19:07)
[2024-07-10] MEDS ORDERED: CLOP75TA99 PO (19:07)
[2024-07-10] MEDS ORDERED: HOME MED LIST COMPLETE! XX SCH (19:10)
[2024-07-10] MEDS: METOPROLOL TARTRATE 100MG TAB PO ONE (19:35)
[2024-07-10] MEDS: **hydrALAZINE** 50 MG TAB PO ONE (19:35)
[2024-07-10] MEDS ORDERED: **hydrALAZINE** 50 MG TAB PO SCH (21:00)
[2024-07-10] MEDS ORDERED: METOPROLOL TARTRATE 100MG TAB PO SCH (21:00)
[2024-07-10] MEDS ORDERED: ACETAMINOPHEN 325 MG TAB PO PRN (21:35)
[2024-07-10] MEDS ORDERED: LEVALBUTEROL 1.25MG 0.5ML CONCENTRATE NEB INH PRN (21:35)
[2024-07-10] MEDS ORDERED: ACETAMINOPHEN 500 MG TAB PO PRN (21:50)
[2024-07-10 22:18] LABS: MAGNESIUM LEVEL 1.9 MG/DL (1.8-2.4)
[2024-07-10] MEDS: DOCUSATE SODIUM 100MG CAPSULE PO SCH (22:18)
[2024-07-10] MEDS: ATORVASTATIN 20 MG TAB PO SCH (22:18)
[2024-07-10] MEDS: guaiFENesin ER TABLET 600 MG TAB PO SCH (22:18)
[2024-07-10] MEDS: predniSONE 20 MG TAB PO SCH (22:18)
[2024-07-10 22:20] LABS: C REACTIVE PROTEIN QUANTITATIV 2.26 MG/DL (<1.0)
[2024-07-10 22:32] LABS: PROCALCITONIN 0.59 ng/ml
[2024-07-10 22:35] LABS: PHOSPHORUS LEVEL 3.5 MG/DL (2.4-5.1)
[2024-07-10] MEDS: AZITHROMYCIN 250MG TABLET PO ONE (23:51)
[2024-07-11] MEDS: SODIUM CHLORIDE 0.9% 3ML NEB SOLUTION FOR INHALATION INH SCH (01:12)
[2024-07-11] MEDS: cefTRIAXone SOD 1 GM in DEXTROSE 5% (D5W) ADV/MINI-BAG 50 ML IV SCH (03:08)
[2024-07-11] MEDS: LEVOTHYROXINE 50MCG TABLET (0.05MG) PO SCH (06:15)
[2024-07-11 07:34] LABS: HEMATOCRIT 37.8 % (36.0-47.0); HEMOGLOBIN 11.9 g/dl (12.0-15.5); MEAN CORPUSCULAR HEMOGLOBIN 30.2 pg (27.0-33.0); MEAN CORPUSCULAR HGB CONC 31.5 g/dl (32.0-36.5); MEAN CORPUSCULAR VOLUME 95.9 fl (80.0-96.0); PLATELET COUNT, AUTOMATED 322 10^3/uL (150-450); RED BLOOD COUNT 3.94 10^6/uL (4.00-5.40); WHITE BLOOD COUNT 4.3 10^3/uL (4.0-10.0)
[2024-07-11] MEDS: ALBUTEROL 90 MCG/ACT 8GM HFA INHALER INH SCH (07:59)
[2024-07-11 08:00] LABS: ALBUMIN 2.8 G/DL (3.2-5.2); ALKALINE PHOSPHATASE 65 U/L (35-104); ALT/SGPT < 9 U/L (7.0-40); AST/SGOT 14 U/L (<34); BILIRUBIN,TOTAL 0.4 MG/DL (0.3-1.2); BLOOD UREA NITROGEN 36 MG/DL (9-23); CALCIUM LEVEL 7.3 MG/DL (8.3-10.6); CARBON DIOXIDE LEVEL 32 MMOL/L (20-31); CHLORIDE LEVEL 98 MMOL/L (98-107); CREATININE FOR GFR 5.16 MG/DL (0.55-1.30); GLOMERULAR FILTRATION RATE 8.5 (>32); GLUCOSE, FASTING 137 MG/DL (74-106); POTASSIUM SERUM 4.3 MMOL/L (3.5-5.1); SODIUM LEVEL 141 MMOL/L (136-145); TOTAL PROTEIN 6.6 G/DL (5.7-8.2)
[2024-07-11] MEDS: HEPARIN SOD (PORCINE) 5000UNITS/ML 1ML VIAL/SYRINGE SC SCH (08:39)
[2024-07-11] MEDS: **hydrALAZINE** 50 MG TAB PO SCH (08:40)
[2024-07-11] MEDS: CLOPIDOGREL 75 MG TAB PO SCH (08:40)
[2024-07-11] MEDS: ASPIRIN 81MG ENTERIC TABLET PO SCH (08:40)
[2024-07-11] MEDS: CALCIUM ACETATE 667MG GELCAP PO SCH (08:40)
[2024-07-11] MEDS: METOPROLOL TARTRATE 100MG TAB PO SCH (08:40)
[2024-07-11] MEDS: LOSARTAN 50MG TABLET PO SCH (08:41)
[2024-07-11 15:05] VITALS: BP 101/62; TEMP 97.5; O2SAT 95
[2024-07-11 19:55] VITALS: BP 133/58; TEMP 97.9; O2SAT 93
[2024-07-11 20:00] VITALS: O2SAT 93
[2024-07-11] MEDS: AZITHROMYCIN 250MG TABLET PO SCH (20:39)
[2024-07-12] VITALS: BP 166/64; TEMP 97.5; O2SAT 92
[2024-07-12 04:00] VITALS: BP 165/75; TEMP 97.3; O2SAT 93
[2024-07-12] MEDS ORDERED: LIDOCAINE 1% SDV 5ML VIAL SC PRN (06:00)
[2024-07-12] MEDS ORDERED: HEPARIN 1,000UNITS/ML 10ML VIAL (FOR RADIOLOGY & DIALYSIS ONLY) XX SCH (06:00)
[2024-07-12] MEDS ORDERED: SODIUM CHLORIDE 0.9% 1000 ML IV PRN (06:00)
[2024-07-12 08:00] VITALS: BP 129/57; TEMP 97.5; O2SAT 94
[2024-07-12] MEDS: HEPARIN 1,000UNITS/ML 10ML VIAL (FOR RADIOLOGY & DIALYSIS ONLY) IV PRN (08:39)
[2024-07-12 09:15] LABS: CALCIUM LEVEL 7.3 MG/DL (8.3-10.6); CREATININE FOR GFR 6.86 MG/DL (0.55-1.30); GLOMERULAR FILTRATION RATE 6.2 (>32); POTASSIUM SERUM 4.4 MMOL/L (3.5-5.1)
[2024-07-12] MEDS ORDERED: GLUCAGON INJ 1MG VIAL SC PRN (09:55)
[2024-07-12] MEDS ORDERED: GLUCOSE 4 GM CHEW PO PRN (09:55)
[2024-07-12] MEDS ORDERED: DEXTROSE 50% 50ML SYRINGE IV PRN (09:55)
[2024-07-12 12:30] VITALS: BP 130/58; TEMP 97.7; O2SAT 95
[2024-07-12] MEDS: OSELTAMIVIR PHOSPHATE 30MG CAPSULE PO SCH (13:13)
[2024-07-12] MEDS: INSULIN LISPRO (NovoLOG) PER UNIT SC SCH ×2 (13:14→21:00)
[2024-07-12 16:00] VITALS: BP 136/58; TEMP 97.9; O2SAT 92
[2024-07-12 20:48] VITALS: BP 135/60; TEMP 97.5; O2SAT 93
[2024-07-13 00:48] VITALS: BP 128/59; TEMP 97.7; O2SAT 95
[2024-07-13 05:18] VITALS: BP 140/62; TEMP 97.3; O2SAT 94
[2024-07-13 06:57] LABS: CALCIUM LEVEL 7.5 MG/DL (8.3-10.6); CREATININE FOR GFR 4.35 MG/DL (0.55-1.30); GLOMERULAR FILTRATION RATE 10.4 (>32); POTASSIUM SERUM 4.3 MMOL/L (3.5-5.1)
[2024-07-13 08:10] VITALS: BP 121/54; TEMP 97.5; O2SAT 94
[2024-07-13 08:51] VITALS: BP 141/99
[2024-07-13] MEDS ORDERED: PRED20TA PO (10:09)
[2024-07-13] MEDS ORDERED: OSEL30CA PO (10:09)
[2024-07-13] MEDS ORDERED: VENTAER INH (10:09)
[2024-07-13] MEDS ORDERED: MUCI600T31 PO (10:09)
[2024-07-13] MEDS ORDERED: CEFD1CAP9 PO (10:13)
[2024-07-13] MEDS ORDERED: PROBCAP14 PO (10:13)
== END 2024-07-13 12:44 | disposition home or self-care (01) | DRG 193 ==
LOC: M ED 11:47 → EDBD 11:47 → M ED INP 11:48 → M MSPAV 07-11 15:05 → OBSVTOIN 07-12 06:21
PROVIDERS: ADMIT Family Medicine; ATTEND Student in an Organized Health Care Education/Training Program
DX: J10.00 Influenza due to other identified influenza virus with unspecified type of pneumonia (principal); N18.6 End stage renal disease; I69.351 Hemiplegia and hemiparesis following cerebral infarction affecting right dominant side; M31.30 Wegener's granulomatosis without renal involvement; I12.0 Hypertensive chronic kidney disease with stage 5 chronic kidney disease or end stage renal disease; J21.9 Acute bronchiolitis, unspecified; J15.9 Unspecified bacterial pneumonia; J40 Bronchitis, not specified as acute or chronic; I25.10 Atherosclerotic heart disease of native coronary artery without angina pectoris; E78.5 Hyperlipidemia, unspecified; E03.9 Hypothyroidism, unspecified; D63.1 Anemia in chronic kidney disease; G89.29 Other chronic pain; M54.9 Dorsalgia, unspecified; Z90.79 Acquired absence of other genital organ(s); Z79.82 Long term (current) use of aspirin; Z79.890 Hormone replacement therapy; Z79.899 Other long term (current) drug therapy; Z99.2 Dependence on renal dialysis

== ENCOUNTER → 2024-07-20 | Outpatient (REF) | payer MEDICARE ==
[~2024-07-20] MED LIST changes: +CEFD1CAP9 PO; +CLOP75TA99 PO; +OSEL30CA PO; +PROBCAP14 PO
== END ==
LOC: M LAB REF 13:26
PROVIDERS: ATTEND Nurse Practitioner Family
DX: E03.9 Hypothyroidism, unspecified (principal)

== ENCOUNTER 2025-03-12 11:48 | Emergency (ER) | payer MEDICARE ==
[~2025-03-12] VITALS: Ht 154.9 cm; Wt 54.2 kg
[2025-03-12 12:27] LABS: BASO # 0.0 10^3/uL (0.0-0.2); BASO % 0.4 % (0.0-1.0); EOS # 0.0 10^3/uL (0.0-0.5); EOS % 0.0 % (0.0-3.0); LYMPH # 1.2 10^3/uL (1.5-5.0); LYMPH % 11.3 % (24.0-44.0); MONO # 0.6 10^3/uL (0.0-0.8); MONO % 5.5 % (2.0-8.0); NEUTROPHILS # 8.5 10^3/uL (1.5-8.5); NEUTROPHILS % 82.1 % (36.0-66.0); PLATELET COUNT, AUTOMATED 395 10^3/uL (150-450)
[2025-03-12 12:40] LABS: INR 0.94
[2025-03-12] MEDS ORDERED: ACET1TAB55 PO (13:32)
[2025-03-12] MEDS ORDERED: HYDR100T PO (13:36)
[2025-03-12 13:38] LABS: CALCIUM LEVEL 8.4 MG/DL (8.3-10.6); CARBON DIOXIDE LEVEL 30.0 MMOL/L (20-31); CHLORIDE LEVEL 93.0 MMOL/L (98-107); CREATININE FOR GFR 3.47 MG/DL (0.55-1.30); GLOMERULAR FILTRATION RATE 12.7 (>32); POTASSIUM SERUM 3.7 MMOL/L (3.5-5.1); SODIUM LEVEL 138.0 MMOL/L (136-145)
[2025-03-12] MEDS ORDERED: LEVO75TA4 (13:45)
[2025-03-12] MEDS ORDERED: LANT1000 (13:45)
[2025-03-12 14:55] VITALS: BP 138/63; TEMP 97.6; O2SAT 100
== END 2025-03-12 15:07 | disposition home or self-care (01) ==
LOC: EDBD 11:48 → M ED 11:48
DX: I95.1 Orthostatic hypotension (principal); I25.10 Atherosclerotic heart disease of native coronary artery without angina pectoris; E78.5 Hyperlipidemia, unspecified; I12.0 Hypertensive chronic kidney disease with stage 5 chronic kidney disease or end stage renal disease; Z99.2 Dependence on renal dialysis; Z79.899 Other long term (current) drug therapy

== ENCOUNTER 2025-04-24 22:59 | Emergency (ER) | payer MEDICARE ==
[~2025-04-24] VITALS: Ht 154.9 cm; Wt 59.0 kg
[~2025-04-24 22:59] MED LIST changes: +ACET1TAB55 PO; +HYDR100T PO; +LANT1000; +LEVO75TA4
[2025-04-24 23:34] LABS: BASO # 0.1 10^3/uL (0.0-0.2); BASO % 0.7 % (0.0-1.0); EOS # 0.0 10^3/uL (0.0-0.5); EOS % 0.0 % (0.0-3.0); LYMPH # 1.1 10^3/uL (1.5-5.0); LYMPH % 12.2 % (24.0-44.0); MONO # 0.8 10^3/uL (0.0-0.8); MONO % 8.9 % (2.0-8.0); NEUTROPHILS # 6.9 10^3/uL (1.5-8.5); NEUTROPHILS % 77.9 % (36.0-66.0); PLATELET COUNT, AUTOMATED 318 10^3/uL (150-450)
[2025-04-24 23:55] LABS: CK-MB VALUE MASS 1.5 NG/ML (<3.6)
[2025-04-24 23:56] LABS: CALCIUM LEVEL 7.6 MG/DL (8.3-10.6); CARBON DIOXIDE LEVEL 28.0 MMOL/L (20-31); CHLORIDE LEVEL 99.0 MMOL/L (98-107); CPK CREATINE PHOSPHOKINASE 33.0 U/L (34-145); CREATININE FOR GFR 7.51 MG/DL (0.55-1.30); GLOMERULAR FILTRATION RATE 5.0 (>32); MB/CK RELATIVE INDEX 4.54 (< OR =4); POTASSIUM SERUM 4.2 MMOL/L (3.5-5.1); SODIUM LEVEL 143.0 MMOL/L (136-145)
[2025-04-25 01:19] LABS: CK-MB VALUE MASS 1.3 NG/ML (<3.6)
[2025-04-25 01:21] LABS: CPK CREATINE PHOSPHOKINASE 34.0 U/L (34-145); MB/CK RELATIVE INDEX 3.82 (< OR =4)
[2025-04-25 06:45] VITALS: BP 150/70; TEMP 97; O2SAT 99
== END 2025-04-25 06:55 | disposition home or self-care (01) ==
LOC: M ED 22:59
DX: R07.9 Chest pain, unspecified (principal); E11.9 Type 2 diabetes mellitus without complications; I12.0 Hypertensive chronic kidney disease with stage 5 chronic kidney disease or end stage renal disease; N18.6 End stage renal disease; E78.5 Hyperlipidemia, unspecified; E03.9 Hypothyroidism, unspecified; Z86.73 Personal history of transient ischemic attack (TIA), and cerebral infarction without residual deficits; D64.9 Anemia, unspecified; Z99.2 Dependence on renal dialysis; M19.90 Unspecified osteoarthritis, unspecified site; J84.10 Pulmonary fibrosis, unspecified; Z79.899 Other long term (current) drug therapy

== ENCOUNTER → 2025-05-01 | Outpatient (CLI) | payer MEDICARE | LOC: M WUC 12:50 | PROVIDERS: ATTEND Physician Assistant | DX: M85.851 Other specified disorders of bone density and structure, right thigh (principal); M25.551 Pain in right hip ==

== ENCOUNTER → 2025-05-10 | Outpatient (CLI) | payer MEDICARE | LOC: M SOG 08:06 | PROVIDERS: ATTEND Orthopaedic Surgery | DX: M25.551 Pain in right hip (principal) ==